=== PATIENT | male | born 1965 | race Caucasian/White ===

== ENCOUNTER → 2018-04-29 | Outpatient (REF) | payer OTHER, MEDICARE ==
[2018-04-29 13:49] LABS: APPEARANCE, URINE CLEAR (CLEAR); BACTERIA, URINE AUTO NEGATIVE (NEGATIVE); BILIRUBIN, URINE AUTO NEGATIVE (NEGATIVE); BLOOD, URINE BLOOD NEGATIVE (NEGATIVE); COLOR, URINE COLORLESS (YELLOW); GLUCOSE, URINE (UA) AUTO NEGATIVE (NEGATIVE); KETONE, URINE AUTO NEGATIVE (NEGATIVE); LEUKOCYTE ESTERASE, URINE AUTO NEGATIVE (NEGATIVE); MUCUS, URINE SMALL (NEGATIVE); NITRITE, URINE AUTO NEGATIVE (NEGATIVE); PROTEIN, URINE AUTO NEGATIVE (NEGATIVE); RBC, URINE AUTO 0 /HPF (0-3); SPECIFIC GRAVITY URINE AUTO 1.002 (1.002-1.035); SQUAMOUS EPITHELIAL CELL UR AU 0 /HPF (0-6); UROBILINOGEN, URINE AUTO 0.2 mg/dL (0.0-2.0); WBC, URINE AUTO 1 /HPF (0-3)
== END ==
LOC: M SMT 13:12
DX: R31.9 Hematuria, unspecified (principal)
CPT/HCPCS: 81001

== ENCOUNTER → 2019-01-29 | Outpatient (REF) ==
[~2019-01-29] MED LIST: ACET250T2 PO; ASPI81TA85 PO; ATOR40TA75 PO; BENZ-52 PO; BENZ1TAB42 PO; DIVA250T7 PO; FERR325T3 PO; FLOM0.4C39 PO; GABA-845 PO; HALO5TA PO; HYDR-3363 PO; INVE234I IM; INVE39IN IM; LISI-672 PO; RANI300C PO; RISP1TAB3 PO; VIST50CA PO
== END ==
LOC: M LAB REF 15:10
PROVIDERS: ATTEND Urology
DX: Z00.00 Encounter for general adult medical examination without abnormal findings (principal)

== ENCOUNTER → 2019-05-31 | Outpatient (REF) | payer MEDICARE, MEDICAID | LOC: M SMT 17:12 | PROVIDERS: ATTEND Urology | DX: C67.9 Malignant neoplasm of bladder, unspecified (principal) ==

== ENCOUNTER 2022-01-04 12:58 | Inpatient (IN) | payer MEDICARE, MEDICAID ==
[~2022-01-04] VITALS: Ht 185.4 cm; Wt 119.0 kg
[~2022-01-04 12:58] MED LIST changes: -ASPI81TA85 PO; +ASPI81TA86 PO; +GABA-283 PO; -GABA-845 PO; -HALO5TA PO; +HALO5TAB33 PO; -LISI-672 PO; +LISI30TA4 PO
[2022-01-04] MEDS ORDERED: LORazepam 2 MG TAB PO STA ×3 (13:21→22:50)
[2022-01-04] MEDS ORDERED: OLANZapine ORAL DISINTEGRATING TAB 5MG PO ONE (13:25)
[2022-01-04 14:29] LABS: AMPHETAMINES LEVEL URINE NEGATIVE (NEGATIVE); BARBITURATES URINE NEGATIVE (NEGATIVE); BENZODIAZEPINES URINE NEGATIVE (NEGATIVE); CANNABINOIDS URINE NEGATIVE (NEGATIVE); COCAINE METABOLITE URINE NEGATIVE (NEGATIVE); METHADONE URINE NEGATIVE (NEGATIVE); OPIATES URINE NEGATIVE (NEGATIVE); PHENCYCLIDINE URINE NEGATIVE (NEGATIVE)
[2022-01-04 15:18] LABS: RSV AMPLIFICATION NEGATIVE (NEGATIVE)
[2022-01-04] MEDS ORDERED: FERR1TAB8 PO (15:47)
[2022-01-04] MEDS ORDERED: GABA-282 PO (15:47)
[2022-01-04] MEDS ORDERED: OXYB5TAB10 PO (15:47)
[2022-01-04] MEDS ORDERED: ASPI81TA26 PO (15:47)
[2022-01-04] MEDS ORDERED: patient note (15:48)
[2022-01-04] MEDS ORDERED: HOME MED LIST COMPLETE! XX SCH (15:50)
[2022-01-04 15:52] LABS: HEMATOCRIT 41.7 % (42.0-52.0); HEMOGLOBIN 13.5 g/dl (13.5-17.5); MEAN CORPUSCULAR HEMOGLOBIN 29.5 pg (27.0-33.0); MEAN CORPUSCULAR HGB CONC 32.4 g/dl (32.0-36.5); PLATELET COUNT, AUTOMATED 220 10^3/uL (150-450); RED BLOOD COUNT 4.58 10^6/uL (4.30-6.10); WHITE BLOOD COUNT 9.7 10^3/uL (4.0-10.0)
[2022-01-04 16:39] LABS: ACETAMINOPHEN LEVEL < 2.0 UG/ML (10.0-30.0); ALT/SGPT 26 U/L (12-78); BILIRUBIN,DIRECT 0.2 MG/DL (0.0-0.2); BILIRUBIN,TOTAL 0.3 MG/DL (0.2-1.0); BLOOD UREA NITROGEN 11 MG/DL (7-18); CALCIUM LEVEL 9.7 MG/DL (8.5-10.1); CARBON DIOXIDE LEVEL 32 MEQ/L (21-32); CHLORIDE LEVEL 102 MEQ/L (98-107); CREATININE FOR GFR 0.72 MG/DL (0.70-1.30); ETHYL ALCOHOL (ETHANOL) 0.003 % (0.000-0.010); GLOMERULAR FILTRATION RATE > 60.0 (>56); GLUCOSE, FASTING 99 MG/DL (70-100); POTASSIUM SERUM 4.4 MEQ/L (3.5-5.1); SALICYLATE LEVEL < 1.7 MG/DL (5.0-30.0); SODIUM LEVEL 137 MEQ/L (136-145); THYROID STIMULATING HORMONE 0.898 uIU/ML (0.358-3.740); TOTAL PROTEIN 7.7 GM/DL (6.4-8.2)
[2022-01-04] MEDS: traZODone 50 MG TAB PO PRN (19:42)
[2022-01-04] MEDS ORDERED: OLANZapine ORAL DISINTEGRATING TAB 5MG PO STA (22:50)
[2022-01-04] MEDS ORDERED: diphenhydrAMINE 50MG CAP PO STA (22:50)
[2022-01-05] MEDS: PALIPERIDONE 6 MG ER TAB (INVEGA) PO SCH (13:41)
[2022-01-05] MEDS ORDERED: PALIPERIDONE PAL 234MG/1.5ML INJ (INVEGA)(FREE PSY INPT ONLY) IM ONE (16:00)
[2022-01-05] MEDS: traZODone 50 MG TAB PO PRN (20:20)
[2022-01-06] MEDS: PALIPERIDONE 6 MG ER TAB (INVEGA) PO SCH (09:00)
[2022-01-06] MEDS: traZODone 50 MG TAB PO PRN (21:34)
[2022-01-07 06:45] VITALS: BP 152/88
[2022-01-07] MEDS: PALIPERIDONE 6 MG ER TAB (INVEGA) PO SCH (08:51)
[2022-01-07] MEDS ORDERED: fluPHENAZine DECAN 25MG/ML 5ML VIAL (J2680) IM SCH (09:00)
[2022-01-07] MEDS ORDERED: FLUP5TAB13 PO (15:48)
[2022-01-07] MEDS ORDERED: FLUP25VL INJ (15:52)
[2022-01-07] MEDS ORDERED: LISI10TA22 PO (16:03)
[2022-01-07] MEDS ORDERED: DIVA500T94 PO (16:03)
[2022-01-07] MEDS ORDERED: VITA-158 PO (16:12)
[2022-01-07] MEDS ORDERED: ARTIDRO OU (16:12)
[2022-01-07] MEDS ORDERED: PROP10TA56 PO (16:12)
[2022-01-07] MEDS ORDERED: IBUP1TAB5 PO (16:12)
[2022-01-07] MEDS ORDERED: CYCL-707 PO (16:12)
[2022-01-07] MEDS ORDERED: FURO20TA2 PO (16:12)
[2022-01-07] MEDS ORDERED: TRAZ-252 PO (16:12)
[2022-01-07] MEDS ORDERED: HOME MED LIST COMPLETE! XX SCH (16:15)
[2022-01-07] MEDS: GABAPENTIN 300 MG CAP PO SCH ×2 (16:56→20:08)
[2022-01-07] MEDS: traZODone 50 MG TAB PO PRN (20:08)
[2022-01-07] MEDS: fluPHENAZine 5MG TABLET PO SCH (20:08)
[2022-01-07] MEDS: PROPRANOLOL 10 MG TAB PO SCH (20:08)
[2022-01-07] MEDS: BENZTROPINE 0.5 MG TAB PO SCH (20:09)
[2022-01-07] MEDS: VALPROIC ACID 250MG CAP PO SCH (20:09)
[2022-01-08] MEDS: BENZTROPINE 0.5 MG TAB PO SCH ×2 (09:53→20:01)
[2022-01-08] MEDS: VALPROIC ACID 250MG CAP PO SCH ×2 (09:54→20:01)
[2022-01-08] MEDS: GABAPENTIN 300 MG CAP PO SCH ×3 (09:54→20:01)
[2022-01-08] MEDS: fluPHENAZine 5MG TABLET PO SCH ×2 (09:55→20:00)
[2022-01-08] MEDS: PROPRANOLOL 10 MG TAB PO SCH ×2 (10:15→20:00)
[2022-01-08] MEDS: NICOTINE 21MG/24HR 1 EA TRANSDERMAL TD PRN (10:34)
[2022-01-08] MEDS: diphenhydrAMINE 50MG CAP PO PRN (18:45)
[2022-01-08] MEDS: LORazepam 2 MG TAB PO PRN (18:45)
[2022-01-08] MEDS: traZODone 50 MG TAB PO PRN (20:00)
[2022-01-08 20:58] VITALS: BP 141/80
[2022-01-09 06:20] VITALS: BP 146/93
[2022-01-09] MEDS: NICOTINE 21MG/24HR 1 EA TRANSDERMAL TD PRN (07:33)
[2022-01-09] MEDS: fluPHENAZine 5MG TABLET PO SCH ×2 (07:33→21:00)
[2022-01-09] MEDS: PROPRANOLOL 10 MG TAB PO SCH ×2 (07:34→21:34)
[2022-01-09] MEDS: VALPROIC ACID 250MG CAP PO SCH ×2 (07:34→21:34)
[2022-01-09] MEDS: BENZTROPINE 0.5 MG TAB PO SCH ×2 (07:34→21:34)
[2022-01-09] MEDS: GABAPENTIN 300 MG CAP PO SCH ×3 (07:34→21:34)
[2022-01-09] MEDS: LORazepam 2 MG TAB PO PRN (10:11)
[2022-01-09] MEDS: diphenhydrAMINE 50MG CAP PO PRN (10:11)
[2022-01-09 18:28] VITALS: BP 153/87
[2022-01-10 00:05] VITALS: BP 180/110
[2022-01-10] MEDS: diphenhydrAMINE 50MG CAP PO PRN ×2 (00:10→16:15)
[2022-01-10] MEDS: LORazepam 2 MG TAB PO PRN ×2 (00:11→16:15)
[2022-01-10 00:38] VITALS: BP 180/110
[2022-01-10] MEDS: traZODone 50 MG TAB PO PRN (01:10)
[2022-01-10 01:30] LABS: CK-MB VALUE MASS 8.3 NG/ML (<3.6); MB/CK RELATIVE INDEX 2.36 (< OR =4)
[2022-01-10 01:55] VITALS: BP 170/108
[2022-01-10 07:38] VITALS: BP 130/90
[2022-01-10] MEDS: fluPHENAZine 5MG TABLET PO SCH ×2 (09:51→19:30)
[2022-01-10] MEDS: FUROSEMIDE 20 MG TAB PO SCH (09:52)
[2022-01-10] MEDS: BENZTROPINE 0.5 MG TAB PO SCH ×2 (09:52→19:31)
[2022-01-10] MEDS: ASPIRIN 81MG ENTERIC TABLET PO SCH (09:52)
[2022-01-10] MEDS: GABAPENTIN 300 MG CAP PO SCH ×3 (09:52→19:30)
[2022-01-10] MEDS: ASCORBIC ACID 500 MG TAB PO SCH (09:52)
[2022-01-10] MEDS: PROPRANOLOL 10 MG TAB PO SCH ×2 (09:52→19:31)
[2022-01-10] MEDS: NICOTINE 21MG/24HR 1 EA TRANSDERMAL TD PRN (12:15)
[2022-01-10] MEDS: VALPROIC ACID 250MG CAP PO SCH ×2 (12:16→19:32)
[2022-01-10 18:32] VITALS: BP 154/96
[2022-01-10] MEDS: TAMSULOSIN 0.4 MG CAP PO SCH (19:31)
[2022-01-10] MEDS: DOCUSATE SODIUM 100MG CAPSULE PO PRN (19:31)
[2022-01-10] MEDS: ACETAMINOPHEN TAB 650MG DOSE (2X325MG) PO PRN (22:56)
[2022-01-11] MEDS: traZODone 50 MG TAB PO PRN (01:08)
[2022-01-11 06:58] VITALS: BP 129/76
[2022-01-11] MEDS ORDERED: TAMSULOSIN 0.4 MG CAP PO SCH (09:00)
[2022-01-11] MEDS: ASCORBIC ACID 500 MG TAB PO SCH (09:07)
[2022-01-11] MEDS: BENZTROPINE 0.5 MG TAB PO SCH ×2 (09:07→21:31)
[2022-01-11] MEDS: fluPHENAZine 5MG TABLET PO SCH ×2 (09:09→21:00)
[2022-01-11] MEDS: GABAPENTIN 300 MG CAP PO SCH ×3 (09:09→21:31)
[2022-01-11] MEDS: ASPIRIN 81MG ENTERIC TABLET PO SCH (09:09)
[2022-01-11] MEDS: FUROSEMIDE 20 MG TAB PO SCH (09:09)
[2022-01-11] MEDS: VALPROIC ACID 250MG CAP PO SCH ×2 (09:10→21:31)
[2022-01-11] MEDS: PROPRANOLOL 10 MG TAB PO SCH ×2 (09:10→21:32)
[2022-01-11] MEDS: NICOTINE POLACRILEX 2 MG GUM PO PRN ×3 (10:43→21:50)
[2022-01-11] MEDS ORDERED: PALIPERIDONE PAL 234MG/1.5ML INJ (INVEGA)(FREE PSY INPT ONLY) IM ONE (17:00)
[2022-01-11 18:34] VITALS: BP 158/100
[2022-01-11] MEDS: TAMSULOSIN 0.4 MG CAP PO SCH (21:32)
[2022-01-12] MEDS: traZODone 50 MG TAB PO PRN (00:08)
[2022-01-12] MEDS: LORazepam 2 MG TAB PO PRN (02:19)
[2022-01-12] MEDS: diphenhydrAMINE 50MG CAP PO PRN (02:20)
[2022-01-12] MEDS: fluPHENAZine 5MG TABLET PO SCH ×3 (09:00→21:00)
[2022-01-12] MEDS: ASPIRIN 81MG ENTERIC TABLET PO SCH (09:39)
[2022-01-12] MEDS: ASCORBIC ACID 500 MG TAB PO SCH (09:39)
[2022-01-12] MEDS: FUROSEMIDE 20 MG TAB PO SCH (09:39)
[2022-01-12] MEDS: BENZTROPINE 0.5 MG TAB PO SCH ×2 (09:40→21:28)
[2022-01-12] MEDS: GABAPENTIN 300 MG CAP PO SCH ×3 (09:40→21:28)
[2022-01-12] MEDS: VALPROIC ACID 250MG CAP PO SCH ×2 (09:40→21:28)
[2022-01-12] MEDS: PROPRANOLOL 10 MG TAB PO SCH ×2 (09:40→21:28)
[2022-01-12] MEDS: NICOTINE POLACRILEX 2 MG GUM PO PRN ×3 (12:32→21:39)
[2022-01-12] MEDS: DOCUSATE SODIUM 100MG CAPSULE PO PRN (12:32)
[2022-01-12 18:00] VITALS: BP 150/84
[2022-01-12] MEDS: TAMSULOSIN 0.4 MG CAP PO SCH (21:28)
[2022-01-13] MEDS: NICOTINE POLACRILEX 2 MG GUM PO PRN ×4 (02:27→23:53)
[2022-01-13] MEDS: fluPHENAZine 5MG TABLET PO SCH ×2 (09:00→19:44)
[2022-01-13] MEDS: ASCORBIC ACID 500 MG TAB PO SCH (09:12)
[2022-01-13] MEDS: GABAPENTIN 300 MG CAP PO SCH ×3 (09:12→19:42)
[2022-01-13] MEDS: ASPIRIN 81MG ENTERIC TABLET PO SCH (09:12)
[2022-01-13] MEDS: VALPROIC ACID 250MG CAP PO SCH ×2 (09:12→19:42)
[2022-01-13] MEDS: BENZTROPINE 0.5 MG TAB PO SCH ×3 (09:13→19:41)
[2022-01-13] MEDS: FUROSEMIDE 20 MG TAB PO SCH ×2 (09:13→12:08)
[2022-01-13] MEDS: PROPRANOLOL 10 MG TAB PO SCH ×2 (09:17→19:44)
[2022-01-13] MEDS: TAMSULOSIN 0.4 MG CAP PO SCH (19:41)
[2022-01-13] MEDS: DOCUSATE SODIUM 100MG CAPSULE PO PRN (19:46)
[2022-01-13] MEDS: diphenhydrAMINE 50MG CAP PO PRN (23:19)
[2022-01-13] MEDS: LORazepam 2 MG TAB PO PRN (23:19)
[2022-01-14] MEDS: ASPIRIN 81MG ENTERIC TABLET PO SCH (08:25)
[2022-01-14] MEDS: GABAPENTIN 300 MG CAP PO SCH ×3 (08:26→20:30)
[2022-01-14] MEDS: FUROSEMIDE 20 MG TAB PO SCH (08:26)
[2022-01-14] MEDS: ASCORBIC ACID 500 MG TAB PO SCH (08:26)
[2022-01-14] MEDS: BENZTROPINE 0.5 MG TAB PO SCH ×2 (08:26→20:29)
[2022-01-14] MEDS: PROPRANOLOL 10 MG TAB PO SCH ×2 (08:26→20:36)
[2022-01-14] MEDS: fluPHENAZine 5MG TABLET PO SCH ×2 (08:38→21:00)
[2022-01-14] MEDS: VALPROIC ACID 250MG CAP PO SCH ×2 (08:38→21:00)
[2022-01-14] MEDS: NICOTINE POLACRILEX 2 MG GUM PO PRN ×3 (09:34→18:05)
[2022-01-14 18:00] VITALS: BP 168/84
[2022-01-14] MEDS: TAMSULOSIN 0.4 MG CAP PO SCH (20:30)
[2022-01-14] MEDS: DOCUSATE SODIUM 100MG CAPSULE PO PRN (20:36)
[2022-01-15] MEDS: LORazepam 2 MG TAB PO PRN ×2 (00:01→21:16)
[2022-01-15] MEDS: diphenhydrAMINE 50MG CAP PO PRN ×2 (00:02→21:16)
[2022-01-15] MEDS: NICOTINE POLACRILEX 2 MG GUM PO PRN ×4 (00:05→19:01)
[2022-01-15] MEDS: traZODone 50 MG TAB PO PRN (01:17)
[2022-01-15] MEDS: GABAPENTIN 300 MG CAP PO SCH ×3 (09:00→20:24)
[2022-01-15] MEDS: BENZTROPINE 0.5 MG TAB PO SCH ×2 (09:00→20:24)
[2022-01-15] MEDS: fluPHENAZine 5MG TABLET PO SCH ×2 (09:00→20:28)
[2022-01-15] MEDS: VALPROIC ACID 250MG CAP PO SCH ×2 (09:00→20:28)
[2022-01-15] MEDS: PROPRANOLOL 10 MG TAB PO SCH ×2 (09:30→20:28)
[2022-01-15] MEDS: ASCORBIC ACID 500 MG TAB PO SCH (09:30)
[2022-01-15] MEDS: FUROSEMIDE 20 MG TAB PO SCH (09:30)
[2022-01-15] MEDS: ASPIRIN 81MG ENTERIC TABLET PO SCH (09:30)
[2022-01-15] MEDS: DOCUSATE SODIUM 100MG CAPSULE PO PRN ×2 (11:24→20:26)
[2022-01-15] MEDS: TAMSULOSIN 0.4 MG CAP PO SCH (20:24)
[2022-01-16] MEDS: traZODone 50 MG TAB PO PRN (00:30)
[2022-01-16 06:28] VITALS: BP 140/98
[2022-01-16] MEDS: ASCORBIC ACID 500 MG TAB PO SCH (09:00)
[2022-01-16] MEDS: fluPHENAZine 5MG TABLET PO SCH ×2 (09:00→21:00)
[2022-01-16] MEDS: FUROSEMIDE 20 MG TAB PO SCH (09:00)
[2022-01-16] MEDS: VALPROIC ACID 250MG CAP PO SCH ×2 (09:00→21:00)
[2022-01-16] MEDS: GABAPENTIN 300 MG CAP PO SCH ×3 (09:00→23:50)
[2022-01-16] MEDS: ASPIRIN 81MG ENTERIC TABLET PO SCH (09:00)
[2022-01-16] MEDS: BENZTROPINE 0.5 MG TAB PO SCH ×2 (09:00→21:00)
[2022-01-16] MEDS: PROPRANOLOL 10 MG TAB PO SCH ×2 (09:00→23:52)
[2022-01-16] MEDS: TAMSULOSIN 0.4 MG CAP PO SCH (21:00)
[2022-01-17] MEDS: diphenhydrAMINE 50MG CAP PO PRN ×2 (03:42→11:42)
[2022-01-17] MEDS: LORazepam 2 MG TAB PO PRN ×2 (03:43→11:42)
[2022-01-17 06:47] VITALS: BP 156/88
[2022-01-17] MEDS: ASCORBIC ACID 500 MG TAB PO SCH (09:00)
[2022-01-17] MEDS: fluPHENAZine 5MG TABLET PO SCH ×2 (09:00→21:00)
[2022-01-17] MEDS: GABAPENTIN 300 MG CAP PO SCH ×3 (09:00→21:05)
[2022-01-17] MEDS: VALPROIC ACID 250MG CAP PO SCH ×2 (09:00→21:00)
[2022-01-17] MEDS: ASPIRIN 81MG ENTERIC TABLET PO SCH (09:00)
[2022-01-17] MEDS: PROPRANOLOL 10 MG TAB PO SCH ×2 (09:00→21:05)
[2022-01-17] MEDS: FUROSEMIDE 20 MG TAB PO SCH (09:00)
[2022-01-17] MEDS: BENZTROPINE 0.5 MG TAB PO SCH ×2 (09:00→21:05)
[2022-01-17 16:37] VITALS: BP 132/68
[2022-01-17] MEDS: TAMSULOSIN 0.4 MG CAP PO SCH (21:05)
[2022-01-17] MEDS: DOCUSATE SODIUM 100MG CAPSULE PO PRN (21:07)
[2022-01-18] MEDS: VALPROIC ACID 250MG CAP PO SCH ×2 (09:00→21:00)
[2022-01-18] MEDS: fluPHENAZine 5MG TABLET PO SCH ×2 (09:00→21:00)
[2022-01-18] MEDS: PROPRANOLOL 10 MG TAB PO SCH ×2 (09:00→21:27)
[2022-01-18] MEDS: FUROSEMIDE 20 MG TAB PO SCH (09:00)
[2022-01-18] MEDS: BENZTROPINE 0.5 MG TAB PO SCH ×2 (10:50→21:27)
[2022-01-18] MEDS: GABAPENTIN 300 MG CAP PO SCH ×3 (10:50→21:27)
[2022-01-18] MEDS: ASCORBIC ACID 500 MG TAB PO SCH (10:50)
[2022-01-18] MEDS: ASPIRIN 81MG ENTERIC TABLET PO SCH (10:51)
[2022-01-18] MEDS: LORazepam 2 MG TAB PO PRN ×2 (12:29→21:32)
[2022-01-18] MEDS: diphenhydrAMINE 50MG CAP PO PRN ×2 (12:29→21:31)
[2022-01-18] MEDS: ACETAMINOPHEN TAB 650MG DOSE (2X325MG) PO PRN (16:10)
[2022-01-18 17:22] VITALS: BP 141/94
[2022-01-18] MEDS: TAMSULOSIN 0.4 MG CAP PO SCH (21:27)
[2022-01-18] MEDS: DOCUSATE SODIUM 100MG CAPSULE PO PRN (21:31)
[2022-01-19] MEDS: ACETAMINOPHEN TAB 650MG DOSE (2X325MG) PO PRN ×2 (03:24→13:05)
[2022-01-19 06:54] VITALS: BP 139/90
[2022-01-19] MEDS: FUROSEMIDE 20 MG TAB PO SCH (08:44)
[2022-01-19] MEDS: ASCORBIC ACID 500 MG TAB PO SCH (08:44)
[2022-01-19] MEDS: BENZTROPINE 0.5 MG TAB PO SCH ×2 (08:44→21:55)
[2022-01-19] MEDS: GABAPENTIN 300 MG CAP PO SCH ×3 (08:45→21:55)
[2022-01-19] MEDS: ASPIRIN 81MG ENTERIC TABLET PO SCH (08:45)
[2022-01-19] MEDS: MULTIVITAMINS/MINERALS THERAP 1 TAB PO SCH (08:45)
[2022-01-19] MEDS: PROPRANOLOL 10 MG TAB PO SCH ×2 (08:45→22:00)
[2022-01-19] MEDS: fluPHENAZine 5MG TABLET PO SCH ×2 (08:49→21:00)
[2022-01-19] MEDS: VALPROIC ACID 250MG CAP PO SCH ×2 (08:50→21:00)
[2022-01-19] MEDS: diphenhydrAMINE 50MG CAP PO PRN (12:02)
[2022-01-19] MEDS: LORazepam 2 MG TAB PO PRN (12:02)
[2022-01-19] MEDS: NICOTINE POLACRILEX 2 MG GUM PO PRN (15:41)
[2022-01-19 16:55] VITALS: BP 154/94
[2022-01-19] MEDS: TAMSULOSIN 0.4 MG CAP PO SCH (21:56)
[2022-01-19] MEDS: DOCUSATE SODIUM 100MG CAPSULE PO PRN (22:00)
[2022-01-20] MEDS: VALPROIC ACID 250MG CAP PO SCH ×3 (00:06→21:51)
[2022-01-20] MEDS: LORazepam 2 MG TAB PO PRN ×3 (01:10→23:11)
[2022-01-20] MEDS: diphenhydrAMINE 50MG CAP PO PRN ×3 (01:10→23:09)
[2022-01-20] MEDS: traZODone 50 MG TAB PO PRN (02:01)
[2022-01-20] MEDS: fluPHENAZine 5MG TABLET PO SCH ×2 (09:00→21:00)
[2022-01-20] MEDS: MULTIVITAMINS/MINERALS THERAP 1 TAB PO SCH (09:08)
[2022-01-20 09:13] VITALS: BP 158/98
[2022-01-20] MEDS: ASCORBIC ACID 500 MG TAB PO SCH (09:13)
[2022-01-20] MEDS: GABAPENTIN 300 MG CAP PO SCH ×3 (09:13→21:50)
[2022-01-20] MEDS: ASPIRIN 81MG ENTERIC TABLET PO SCH (09:13)
[2022-01-20] MEDS: PROPRANOLOL 10 MG TAB PO SCH ×2 (09:13→21:00)
[2022-01-20] MEDS: BENZTROPINE 0.5 MG TAB PO SCH ×2 (09:14→21:51)
[2022-01-20] MEDS: FUROSEMIDE 20 MG TAB PO SCH (09:14)
[2022-01-20 16:58] VITALS: BP 140/96
[2022-01-20] MEDS: TAMSULOSIN 0.4 MG CAP PO SCH (21:00)
[2022-01-21] MEDS: traZODone 50 MG TAB PO PRN ×2 (00:36→23:04)
[2022-01-21] MEDS: NICOTINE POLACRILEX 2 MG GUM PO PRN ×4 (02:09→20:54)
[2022-01-21] MEDS: ACETAMINOPHEN TAB 650MG DOSE (2X325MG) PO PRN ×2 (02:10→21:40)
[2022-01-21] MEDS: BENZTROPINE 0.5 MG TAB PO SCH ×2 (08:26→20:13)
[2022-01-21] MEDS: GABAPENTIN 300 MG CAP PO SCH ×5 (08:26→20:15)
[2022-01-21] MEDS: MULTIVITAMINS/MINERALS THERAP 1 TAB PO SCH (08:26)
[2022-01-21] MEDS: ASPIRIN 81MG ENTERIC TABLET PO SCH (08:26)
[2022-01-21] MEDS: ASCORBIC ACID 500 MG TAB PO SCH (08:26)
[2022-01-21] MEDS: VALPROIC ACID 250MG CAP PO SCH ×3 (08:29→20:17)
[2022-01-21] MEDS: PROPRANOLOL 10 MG TAB PO SCH ×2 (08:30→20:10)
[2022-01-21] MEDS: FUROSEMIDE 20 MG TAB PO SCH (08:30)
[2022-01-21] MEDS: fluPHENAZine 5MG TABLET PO SCH ×2 (08:31→20:11)
[2022-01-21] MEDS: diphenhydrAMINE 50MG CAP PO PRN ×2 (11:45→21:36)
[2022-01-21] MEDS: LORazepam 2 MG TAB PO PRN ×2 (11:49→21:36)
[2022-01-21 18:16] VITALS: BP 153/86
[2022-01-21] MEDS: TAMSULOSIN 0.4 MG CAP PO SCH (20:11)
[2022-01-22] MEDS: NICOTINE POLACRILEX 2 MG GUM PO PRN ×3 (07:28→23:04)
[2022-01-22] MEDS: ASPIRIN 81MG ENTERIC TABLET PO SCH (08:41)
[2022-01-22] MEDS: GABAPENTIN 300 MG CAP PO SCH ×3 (08:41→20:19)
[2022-01-22] MEDS: MULTIVITAMINS/MINERALS THERAP 1 TAB PO SCH (08:41)
[2022-01-22] MEDS: ASCORBIC ACID 500 MG TAB PO SCH (08:41)
[2022-01-22] MEDS: BENZTROPINE 0.5 MG TAB PO SCH ×2 (08:41→20:19)
[2022-01-22] MEDS: VALPROIC ACID 250MG CAP PO SCH ×2 (08:42→20:19)
[2022-01-22] MEDS: PROPRANOLOL 10 MG TAB PO SCH ×2 (08:44→20:21)
[2022-01-22] MEDS: FUROSEMIDE 20 MG TAB PO SCH (08:45)
[2022-01-22] MEDS: fluPHENAZine 5MG TABLET PO SCH ×2 (08:45→20:21)
[2022-01-22] MEDS: MAALOX 30 ML SUSP *UDC PO PRN (09:22)
[2022-01-22] MEDS: diphenhydrAMINE 50MG CAP PO PRN ×2 (11:01→20:19)
[2022-01-22] MEDS: LORazepam 2 MG TAB PO PRN ×2 (11:01→20:21)
[2022-01-22] MEDS: TAMSULOSIN 0.4 MG CAP PO SCH (20:21)
[2022-01-22] MEDS: traZODone 50 MG TAB PO PRN (23:02)
[2022-01-23] MEDS: NICOTINE POLACRILEX 2 MG GUM PO PRN ×2 (07:26→14:24)
[2022-01-23] MEDS: PROPRANOLOL 10 MG TAB PO SCH ×2 (08:21→21:00)
[2022-01-23] MEDS: FUROSEMIDE 20 MG TAB PO SCH (08:22)
[2022-01-23] MEDS: fluPHENAZine 5MG TABLET PO SCH ×2 (08:22→21:00)
[2022-01-23] MEDS: GABAPENTIN 300 MG CAP PO SCH ×3 (08:24→21:29)
[2022-01-23] MEDS: VALPROIC ACID 250MG CAP PO SCH ×2 (08:25→21:29)
[2022-01-23] MEDS: MULTIVITAMINS/MINERALS THERAP 1 TAB PO SCH (08:25)
[2022-01-23] MEDS: ASCORBIC ACID 500 MG TAB PO SCH (08:25)
[2022-01-23] MEDS: BENZTROPINE 0.5 MG TAB PO SCH ×2 (08:25→21:29)
[2022-01-23] MEDS: ASPIRIN 81MG ENTERIC TABLET PO SCH (08:25)
[2022-01-23] MEDS: LORazepam 2 MG TAB PO PRN ×2 (09:02→21:34)
[2022-01-23] MEDS: diphenhydrAMINE 50MG CAP PO PRN ×2 (09:02→21:33)
[2022-01-23] MEDS: NICOTINE 21MG/24HR 1 EA TRANSDERMAL TD SCH (17:30)
[2022-01-23] MEDS: TAMSULOSIN 0.4 MG CAP PO SCH (21:00)
[2022-01-23] MEDS: traZODone 50 MG TAB PO PRN (21:58)
[2022-01-23] MEDS: MOM 30ML SUSPENSION UDC PO PRN (22:40)
[2022-01-24 07:00] VITALS: BP 142/75
[2022-01-24] MEDS: BENZTROPINE 0.5 MG TAB PO SCH ×2 (09:55→21:44)
[2022-01-24] MEDS: ASCORBIC ACID 500 MG TAB PO SCH (09:55)
[2022-01-24] MEDS: ASPIRIN 81MG ENTERIC TABLET PO SCH (09:56)
[2022-01-24] MEDS: GABAPENTIN 300 MG CAP PO SCH ×3 (09:56→21:00)
[2022-01-24] MEDS: MULTIVITAMINS/MINERALS THERAP 1 TAB PO SCH (09:56)
[2022-01-24] MEDS: NICOTINE 21MG/24HR 1 EA TRANSDERMAL TD SCH (09:57)
[2022-01-24] MEDS: VALPROIC ACID 250MG CAP PO SCH ×2 (09:57→21:00)
[2022-01-24] MEDS: FUROSEMIDE 20 MG TAB PO SCH (10:15)
[2022-01-24] MEDS: PROPRANOLOL 10 MG TAB PO SCH ×3 (10:15→21:00)
[2022-01-24] MEDS: fluPHENAZine 5MG TABLET PO SCH ×2 (10:15→21:00)
[2022-01-24] MEDS: LORazepam 2 MG TAB PO PRN (13:49)
[2022-01-24] MEDS: diphenhydrAMINE 50MG CAP PO PRN (13:49)
[2022-01-24 18:00] VITALS: BP 195/110
[2022-01-24] MEDS: IBUPROFEN 600MG TAB PO PRN (19:07)
[2022-01-24] MEDS: TAMSULOSIN 0.4 MG CAP PO SCH (21:00)
[2022-01-24] MEDS: MAALOX 30 ML SUSP *UDC PO PRN (21:46)
[2022-01-24] MEDS: MOM 30ML SUSPENSION UDC PO PRN (23:29)
[2022-01-25] MEDS: ASCORBIC ACID 500 MG TAB PO SCH (10:35)
[2022-01-25] MEDS: GABAPENTIN 300 MG CAP PO SCH ×3 (10:35→21:00)
[2022-01-25] MEDS: BENZTROPINE 0.5 MG TAB PO SCH ×2 (10:35→21:00)
[2022-01-25] MEDS: MULTIVITAMINS/MINERALS THERAP 1 TAB PO SCH (10:35)
[2022-01-25] MEDS: NICOTINE 21MG/24HR 1 EA TRANSDERMAL TD SCH (10:35)
[2022-01-25] MEDS: ASPIRIN 81MG ENTERIC TABLET PO SCH (10:35)
[2022-01-25] MEDS: PROPRANOLOL 10 MG TAB PO SCH ×2 (10:38→21:00)
[2022-01-25] MEDS: fluPHENAZine 5MG TABLET PO SCH ×2 (10:38→21:00)
[2022-01-25] MEDS: VALPROIC ACID 250MG CAP PO SCH ×2 (10:38→21:00)
[2022-01-25] MEDS: FUROSEMIDE 20 MG TAB PO SCH (10:38)
[2022-01-25] MEDS: IBUPROFEN 600MG TAB PO PRN (14:15)
[2022-01-25 14:31] VITALS: BP 214/110
[2022-01-25 18:36] VITALS: BP 206/100
[2022-01-25] MEDS: TAMSULOSIN 0.4 MG CAP PO SCH (21:00)
[2022-01-26 06:37] VITALS: BP 119/58
[2022-01-26] MEDS: GABAPENTIN 300 MG CAP PO SCH ×3 (09:00→21:00)
[2022-01-26] MEDS: BENZTROPINE 0.5 MG TAB PO SCH ×2 (09:00→21:00)
[2022-01-26] MEDS: ASPIRIN 81MG ENTERIC TABLET PO SCH (09:00)
[2022-01-26] MEDS: VALPROIC ACID 250MG CAP PO SCH ×2 (09:00→21:00)
[2022-01-26] MEDS: PROPRANOLOL 10 MG TAB PO SCH ×2 (09:00→21:00)
[2022-01-26] MEDS: FUROSEMIDE 20 MG TAB PO SCH (09:00)
[2022-01-26] MEDS: NICOTINE 21MG/24HR 1 EA TRANSDERMAL TD SCH (10:01)
[2022-01-26] MEDS: ASCORBIC ACID 500 MG TAB PO SCH (10:01)
[2022-01-26] MEDS: MULTIVITAMINS/MINERALS THERAP 1 TAB PO SCH (10:01)
[2022-01-26] MEDS: fluPHENAZine 5MG TABLET PO SCH ×2 (10:01→21:00)
[2022-01-26] MEDS: TAMSULOSIN 0.4 MG CAP PO SCH (21:00)
[2022-01-27] MEDS: PROPRANOLOL 10 MG TAB PO SCH ×2 (09:00→21:00)
[2022-01-27] MEDS: ASCORBIC ACID 500 MG TAB PO SCH (09:00)
[2022-01-27] MEDS: ASPIRIN 81MG ENTERIC TABLET PO SCH (09:00)
[2022-01-27] MEDS: MULTIVITAMINS/MINERALS THERAP 1 TAB PO SCH (09:00)
[2022-01-27] MEDS: NICOTINE 21MG/24HR 1 EA TRANSDERMAL TD SCH (09:00)
[2022-01-27] MEDS: VALPROIC ACID 250MG CAP PO SCH ×2 (09:00→21:00)
[2022-01-27] MEDS: FUROSEMIDE 20 MG TAB PO SCH (09:00)
[2022-01-27] MEDS: fluPHENAZine 5MG TABLET PO SCH ×2 (09:00→21:00)
[2022-01-27] MEDS: GABAPENTIN 300 MG CAP PO SCH ×3 (09:00→21:00)
[2022-01-27] MEDS: BENZTROPINE 0.5 MG TAB PO SCH ×2 (09:00→21:00)
[2022-01-27] MEDS: TAMSULOSIN 0.4 MG CAP PO SCH (21:00)
[2022-01-28 04:45] VITALS: BP 160/118
[2022-01-28] MEDS: PROPRANOLOL 10 MG TAB PO SCH ×2 (05:12→19:58)
[2022-01-28 08:36] VITALS: BP 148/99
[2022-01-28] MEDS: VALPROIC ACID 250MG CAP PO SCH ×3 (09:00→19:57)
[2022-01-28] MEDS: fluPHENAZine 5MG TABLET PO SCH ×3 (09:00→19:58)
[2022-01-28] MEDS: GABAPENTIN 300 MG CAP PO SCH ×3 (09:06→19:58)
[2022-01-28] MEDS: BENZTROPINE 0.5 MG TAB PO SCH ×2 (09:06→19:57)
[2022-01-28] MEDS: ASCORBIC ACID 500 MG TAB PO SCH (09:06)
[2022-01-28] MEDS: MULTIVITAMINS/MINERALS THERAP 1 TAB PO SCH (09:06)
[2022-01-28] MEDS: FUROSEMIDE 20 MG TAB PO SCH (09:06)
[2022-01-28] MEDS: NICOTINE 21MG/24HR 1 EA TRANSDERMAL TD SCH (09:07)
[2022-01-28] MEDS: ASPIRIN 81MG ENTERIC TABLET PO SCH (09:07)
[2022-01-28 16:20] VITALS: BP 166/82
[2022-01-28] MEDS: TAMSULOSIN 0.4 MG CAP PO SCH (19:58)
[2022-01-29] MEDS: MOM 30ML SUSPENSION UDC PO PRN ×2 (00:03→21:50)
[2022-01-29] MEDS: diphenhydrAMINE 50MG CAP PO PRN (00:47)
[2022-01-29] MEDS: LORazepam 2 MG TAB PO PRN (00:48)
[2022-01-29] MEDS: VALPROIC ACID 250MG CAP PO SCH ×2 (09:21→20:12)
[2022-01-29] MEDS: NICOTINE 21MG/24HR 1 EA TRANSDERMAL TD SCH (09:21)
[2022-01-29] MEDS: BENZTROPINE 0.5 MG TAB PO SCH ×2 (09:21→20:12)
[2022-01-29] MEDS: fluPHENAZine 5MG TABLET PO SCH ×2 (09:22→20:12)
[2022-01-29] MEDS: FUROSEMIDE 20 MG TAB PO SCH (09:22)
[2022-01-29] MEDS: GABAPENTIN 300 MG CAP PO SCH ×3 (09:22→20:12)
[2022-01-29] MEDS: ASPIRIN 81MG ENTERIC TABLET PO SCH (09:22)
[2022-01-29] MEDS: MULTIVITAMINS/MINERALS THERAP 1 TAB PO SCH (09:22)
[2022-01-29] MEDS: ASCORBIC ACID 500 MG TAB PO SCH (09:22)
[2022-01-29] MEDS: PROPRANOLOL 10 MG TAB PO SCH ×2 (09:26→20:12)
[2022-01-29] MEDS: MAALOX 30 ML SUSP *UDC PO PRN (11:21)
[2022-01-29] MEDS: IBUPROFEN 600MG TAB PO PRN ×2 (13:21→21:50)
[2022-01-29 16:51] VITALS: BP 142/80
[2022-01-29] MEDS: TAMSULOSIN 0.4 MG CAP PO SCH (20:12)
[2022-01-30] MEDS: IBUPROFEN 600MG TAB PO PRN ×2 (06:41→16:04)
[2022-01-30] MEDS: FUROSEMIDE 20 MG TAB PO SCH (08:52)
[2022-01-30] MEDS: MULTIVITAMINS/MINERALS THERAP 1 TAB PO SCH (08:52)
[2022-01-30] MEDS: fluPHENAZine 5MG TABLET PO SCH ×2 (08:52→20:41)
[2022-01-30] MEDS: BENZTROPINE 0.5 MG TAB PO SCH ×2 (08:52→20:41)
[2022-01-30] MEDS: ASPIRIN 81MG ENTERIC TABLET PO SCH (08:52)
[2022-01-30] MEDS: VALPROIC ACID 250MG CAP PO SCH ×2 (08:52→20:41)
[2022-01-30] MEDS: PROPRANOLOL 10 MG TAB PO SCH ×2 (08:55→20:52)
[2022-01-30] MEDS: NICOTINE 21MG/24HR 1 EA TRANSDERMAL TD SCH (08:55)
[2022-01-30] MEDS: ASCORBIC ACID 500 MG TAB PO SCH (08:55)
[2022-01-30] MEDS: GABAPENTIN 300 MG CAP PO SCH ×3 (08:55→20:41)
[2022-01-30] MEDS: LORazepam 2 MG TAB PO PRN (16:29)
[2022-01-30] MEDS: diphenhydrAMINE 50MG CAP PO PRN (16:29)
[2022-01-30 16:46] VITALS: BP 150/82
[2022-01-30] MEDS: TAMSULOSIN 0.4 MG CAP PO SCH (20:41)
[2022-01-30] MEDS: MOM 30ML SUSPENSION UDC PO PRN (21:35)
[2022-01-31] MEDS: NICOTINE 21MG/24HR 1 EA TRANSDERMAL TD SCH (08:25)
[2022-01-31] MEDS: VALPROIC ACID 250MG CAP PO SCH ×2 (08:26→20:28)
[2022-01-31] MEDS: PROPRANOLOL 10 MG TAB PO SCH ×2 (08:26→20:28)
[2022-01-31] MEDS: ASCORBIC ACID 500 MG TAB PO SCH (08:26)
[2022-01-31] MEDS: BENZTROPINE 0.5 MG TAB PO SCH ×2 (08:26→20:28)
[2022-01-31] MEDS: ASPIRIN 81MG ENTERIC TABLET PO SCH (08:26)
[2022-01-31] MEDS: GABAPENTIN 300 MG CAP PO SCH ×4 (08:27→20:28)
[2022-01-31] MEDS: FUROSEMIDE 20 MG TAB PO SCH (08:27)
[2022-01-31] MEDS: MULTIVITAMINS/MINERALS THERAP 1 TAB PO SCH (08:27)
[2022-01-31] MEDS: fluPHENAZine 5MG TABLET PO SCH ×2 (08:27→20:29)
[2022-01-31] MEDS: LOPERAMIDE 2 MG CAPLET PO PRN (09:58)
[2022-01-31] MEDS: IBUPROFEN 600MG TAB PO PRN ×2 (11:15→21:55)
[2022-01-31] MEDS: diphenhydrAMINE 50MG CAP PO PRN (11:48)
[2022-01-31] MEDS: LORazepam 2 MG TAB PO PRN (11:50)
[2022-01-31] MEDS: MAALOX 30 ML SUSP *UDC PO PRN (17:21)
[2022-01-31] MEDS: traZODone 50 MG TAB PO PRN (20:25)
[2022-01-31] MEDS: TAMSULOSIN 0.4 MG CAP PO SCH (20:29)
[2022-02-01] MEDS: diphenhydrAMINE 50MG CAP PO PRN ×2 (02:05→15:22)
[2022-02-01] MEDS: LORazepam 2 MG TAB PO PRN ×2 (02:05→15:21)
[2022-02-01] MEDS: MAALOX 30 ML SUSP *UDC PO PRN (04:44)
[2022-02-01] MEDS: BENZTROPINE 0.5 MG TAB PO SCH ×2 (08:46→22:01)
[2022-02-01] MEDS: VALPROIC ACID 250MG CAP PO SCH ×2 (08:46→21:58)
[2022-02-01] MEDS: FUROSEMIDE 20 MG TAB PO SCH (08:46)
[2022-02-01] MEDS: MULTIVITAMINS/MINERALS THERAP 1 TAB PO SCH (08:46)
[2022-02-01] MEDS: ASCORBIC ACID 500 MG TAB PO SCH (08:46)
[2022-02-01] MEDS: PROPRANOLOL 10 MG TAB PO SCH ×2 (08:47→22:00)
[2022-02-01] MEDS: fluPHENAZine 5MG TABLET PO SCH ×2 (08:49→22:00)
[2022-02-01] MEDS: GABAPENTIN 300 MG CAP PO SCH ×3 (08:49→22:00)
[2022-02-01] MEDS: ASPIRIN 81MG ENTERIC TABLET PO SCH (08:49)
[2022-02-01] MEDS: NICOTINE 21MG/24HR 1 EA TRANSDERMAL TD SCH (08:50)
[2022-02-01 08:58] VITALS: BP 140/76
[2022-02-01] MEDS: IBUPROFEN 600MG TAB PO PRN (13:30)
[2022-02-01 16:10] VITALS: BP 140/94
[2022-02-01] MEDS: TAMSULOSIN 0.4 MG CAP PO SCH (22:01)
[2022-02-02] MEDS: traZODone 50 MG TAB PO PRN ×2 (00:28→20:32)
[2022-02-02] MEDS: MOM 30ML SUSPENSION UDC PO PRN (01:08)
[2022-02-02] MEDS: NICOTINE 21MG/24HR 1 EA TRANSDERMAL TD SCH (08:57)
[2022-02-02] MEDS: BENZTROPINE 0.5 MG TAB PO SCH ×2 (08:58→20:31)
[2022-02-02] MEDS: fluPHENAZine 5MG TABLET PO SCH ×2 (08:58→20:32)
[2022-02-02] MEDS: MULTIVITAMINS/MINERALS THERAP 1 TAB PO SCH (08:58)
[2022-02-02] MEDS: ASCORBIC ACID 500 MG TAB PO SCH (08:58)
[2022-02-02] MEDS: FUROSEMIDE 20 MG TAB PO SCH (08:59)
[2022-02-02] MEDS: GABAPENTIN 300 MG CAP PO SCH ×3 (08:59→20:31)
[2022-02-02] MEDS: ASPIRIN 81MG ENTERIC TABLET PO SCH (08:59)
[2022-02-02] MEDS: VALPROIC ACID 250MG CAP PO SCH ×2 (09:00→20:32)
[2022-02-02] MEDS: PROPRANOLOL 10 MG TAB PO SCH ×2 (09:01→20:32)
[2022-02-02] MEDS: diphenhydrAMINE 50MG CAP PO PRN (15:48)
[2022-02-02] MEDS: IBUPROFEN 600MG TAB PO PRN (15:50)
[2022-02-02 16:41] VITALS: BP 142/92
[2022-02-02] MEDS: LORazepam 2 MG TAB PO PRN (17:29)
[2022-02-02] MEDS: TAMSULOSIN 0.4 MG CAP PO SCH (20:31)
[2022-02-03] MEDS: MULTIVITAMINS/MINERALS THERAP 1 TAB PO SCH (09:45)
[2022-02-03] MEDS: NICOTINE 21MG/24HR 1 EA TRANSDERMAL TD SCH (09:45)
[2022-02-03] MEDS: GABAPENTIN 300 MG CAP PO SCH ×3 (09:45→19:48)
[2022-02-03] MEDS: FUROSEMIDE 20 MG TAB PO SCH (09:45)
[2022-02-03] MEDS: ASPIRIN 81MG ENTERIC TABLET PO SCH (09:45)
[2022-02-03] MEDS: fluPHENAZine 5MG TABLET PO SCH ×2 (09:45→19:48)
[2022-02-03] MEDS: VALPROIC ACID 250MG CAP PO SCH ×2 (09:46→19:49)
[2022-02-03] MEDS: ASCORBIC ACID 500 MG TAB PO SCH (09:46)
[2022-02-03] MEDS: BENZTROPINE 0.5 MG TAB PO SCH ×2 (09:46→19:49)
[2022-02-03] MEDS: PROPRANOLOL 10 MG TAB PO SCH ×2 (09:46→19:49)
[2022-02-03] MEDS: IBUPROFEN 600MG TAB PO PRN (11:42)
[2022-02-03] MEDS: diphenhydrAMINE 50MG CAP PO PRN (15:04)
[2022-02-03] MEDS: LORazepam 2 MG TAB PO PRN (15:05)
[2022-02-03 17:03] VITALS: BP 150/94
[2022-02-03] MEDS: TAMSULOSIN 0.4 MG CAP PO SCH (19:49)
[2022-02-03] MEDS: traZODone 50 MG TAB PO PRN (22:47)
[2022-02-03] MEDS: MOM 30ML SUSPENSION UDC PO PRN (23:14)
[2022-02-04] MEDS: IBUPROFEN 600MG TAB PO PRN ×3 (04:09→21:44)
[2022-02-04 06:57] VITALS: BP 167/99
[2022-02-04] MEDS: NICOTINE 21MG/24HR 1 EA TRANSDERMAL TD SCH (08:51)
[2022-02-04] MEDS: VALPROIC ACID 250MG CAP PO SCH ×2 (08:51→20:47)
[2022-02-04] MEDS: fluPHENAZine 5MG TABLET PO SCH ×2 (08:51→20:49)
[2022-02-04] MEDS: PROPRANOLOL 10 MG TAB PO SCH ×2 (08:52→20:48)
[2022-02-04] MEDS: MULTIVITAMINS/MINERALS THERAP 1 TAB PO SCH (08:52)
[2022-02-04] MEDS: ASPIRIN 81MG ENTERIC TABLET PO SCH (08:52)
[2022-02-04] MEDS: BENZTROPINE 0.5 MG TAB PO SCH ×2 (08:52→20:47)
[2022-02-04] MEDS: GABAPENTIN 300 MG CAP PO SCH ×3 (08:52→20:47)
[2022-02-04] MEDS: ASCORBIC ACID 500 MG TAB PO SCH (08:52)
[2022-02-04] MEDS: FUROSEMIDE 20 MG TAB PO SCH (08:52)
[2022-02-04] MEDS: diphenhydrAMINE 50MG CAP PO PRN ×2 (14:27→23:26)
[2022-02-04] MEDS: LORazepam 2 MG TAB PO PRN ×2 (14:29→23:26)
[2022-02-04] MEDS: TAMSULOSIN 0.4 MG CAP PO SCH (20:47)
[2022-02-05] MEDS: NICOTINE 21MG/24HR 1 EA TRANSDERMAL TD SCH (08:50)
[2022-02-05] MEDS: VALPROIC ACID 250MG CAP PO SCH ×2 (08:51→20:00)
[2022-02-05] MEDS: ASPIRIN 81MG ENTERIC TABLET PO SCH (08:51)
[2022-02-05] MEDS: GABAPENTIN 300 MG CAP PO SCH ×3 (08:51→20:00)
[2022-02-05] MEDS: fluPHENAZine 5MG TABLET PO SCH ×2 (08:51→20:00)
[2022-02-05] MEDS: BENZTROPINE 0.5 MG TAB PO SCH ×2 (08:51→20:00)
[2022-02-05] MEDS: PROPRANOLOL 10 MG TAB PO SCH ×2 (08:52→20:00)
[2022-02-05] MEDS: FUROSEMIDE 20 MG TAB PO SCH (08:52)
[2022-02-05] MEDS: ASCORBIC ACID 500 MG TAB PO SCH (08:52)
[2022-02-05] MEDS: MULTIVITAMINS/MINERALS THERAP 1 TAB PO SCH (08:52)
[2022-02-05] MEDS: IBUPROFEN 600MG TAB PO PRN (12:21)
[2022-02-05 18:16] VITALS: BP 133/69
[2022-02-05] MEDS: diphenhydrAMINE 50MG CAP PO PRN (18:32)
[2022-02-05] MEDS: LORazepam 2 MG TAB PO PRN (18:32)
[2022-02-05] MEDS: TAMSULOSIN 0.4 MG CAP PO SCH (20:00)
[2022-02-05] MEDS: traZODone 50 MG TAB PO PRN (23:08)
[2022-02-06] MEDS: IBUPROFEN 600MG TAB PO PRN ×2 (07:50→15:44)
[2022-02-06] MEDS: FUROSEMIDE 20 MG TAB PO SCH (08:55)
[2022-02-06] MEDS: GABAPENTIN 300 MG CAP PO SCH ×3 (08:55→22:14)
[2022-02-06] MEDS: MULTIVITAMINS/MINERALS THERAP 1 TAB PO SCH (08:56)
[2022-02-06] MEDS: ASCORBIC ACID 500 MG TAB PO SCH (08:56)
[2022-02-06] MEDS: ASPIRIN 81MG ENTERIC TABLET PO SCH (08:56)
[2022-02-06] MEDS: PROPRANOLOL 10 MG TAB PO SCH ×2 (08:56→22:16)
[2022-02-06] MEDS: BENZTROPINE 0.5 MG TAB PO SCH ×2 (08:56→22:14)
[2022-02-06] MEDS: fluPHENAZine 5MG TABLET PO SCH ×2 (08:57→22:17)
[2022-02-06] MEDS: VALPROIC ACID 250MG CAP PO SCH ×2 (08:57→22:14)
[2022-02-06] MEDS: NICOTINE 21MG/24HR 1 EA TRANSDERMAL TD SCH (08:58)
[2022-02-06] MEDS: diphenhydrAMINE 50MG CAP PO PRN (17:35)
[2022-02-06] MEDS: LORazepam 2 MG TAB PO PRN (17:37)
[2022-02-06 17:58] VITALS: BP 144/90
[2022-02-06] MEDS: MAALOX 30 ML SUSP *UDC PO PRN (18:28)
[2022-02-06] MEDS: MOM 30ML SUSPENSION UDC PO PRN (18:29)
[2022-02-06] MEDS: TAMSULOSIN 0.4 MG CAP PO SCH (22:16)
[2022-02-06] MEDS: traZODone 50 MG TAB PO PRN (23:18)
[2022-02-07 07:53] VITALS: BP 148/96
[2022-02-07] MEDS: PROPRANOLOL 10 MG TAB PO SCH ×2 (07:57→21:00)
[2022-02-07] MEDS: fluPHENAZine 5MG TABLET PO SCH ×2 (07:57→21:00)
[2022-02-07] MEDS: ASPIRIN 81MG ENTERIC TABLET PO SCH (07:57)
[2022-02-07] MEDS: VALPROIC ACID 250MG CAP PO SCH ×2 (07:57→21:00)
[2022-02-07] MEDS: MULTIVITAMINS/MINERALS THERAP 1 TAB PO SCH (07:58)
[2022-02-07] MEDS: GABAPENTIN 300 MG CAP PO SCH ×3 (07:58→21:00)
[2022-02-07] MEDS: FUROSEMIDE 20 MG TAB PO SCH (07:58)
[2022-02-07] MEDS: ASCORBIC ACID 500 MG TAB PO SCH (07:58)
[2022-02-07] MEDS: BENZTROPINE 0.5 MG TAB PO SCH ×2 (07:58→21:00)
[2022-02-07] MEDS: NICOTINE 21MG/24HR 1 EA TRANSDERMAL TD SCH (08:02)
[2022-02-07] MEDS: IBUPROFEN 600MG TAB PO PRN ×2 (10:12→16:12)
[2022-02-07] MEDS: diphenhydrAMINE 50MG CAP PO PRN (10:59)
[2022-02-07] MEDS: LORazepam 2 MG TAB PO PRN (11:01)
[2022-02-07 18:33] VITALS: BP 146/84
[2022-02-07] MEDS: TAMSULOSIN 0.4 MG CAP PO SCH (21:00)
[2022-02-08] MEDS: traZODone 50 MG TAB PO PRN (00:46)
[2022-02-08] MEDS: MOM 30ML SUSPENSION UDC PO PRN (03:03)
[2022-02-08] MEDS: MAALOX 30 ML SUSP *UDC PO PRN (03:03)
[2022-02-08] MEDS: VALPROIC ACID 250MG CAP PO SCH ×2 (09:00→17:57)
[2022-02-08] MEDS: GABAPENTIN 300 MG CAP PO SCH ×3 (09:00→21:00)
[2022-02-08] MEDS: ASCORBIC ACID 500 MG TAB PO SCH (09:00)
[2022-02-08] MEDS: FUROSEMIDE 20 MG TAB PO SCH (09:00)
[2022-02-08] MEDS: MULTIVITAMINS/MINERALS THERAP 1 TAB PO SCH (09:00)
[2022-02-08] MEDS: ASPIRIN 81MG ENTERIC TABLET PO SCH (09:34)
[2022-02-08] MEDS: diphenhydrAMINE 50MG CAP PO PRN (09:35)
[2022-02-08] MEDS: LORazepam 2 MG TAB PO PRN (09:35)
[2022-02-08] MEDS: NICOTINE 21MG/24HR 1 EA TRANSDERMAL TD SCH (09:41)
[2022-02-08] MEDS: PROPRANOLOL 10 MG TAB PO SCH ×2 (09:59→21:00)
[2022-02-08] MEDS: BENZTROPINE 0.5 MG TAB PO SCH ×2 (10:04→22:34)
[2022-02-08] MEDS: fluPHENAZine 5MG TABLET PO SCH ×2 (10:04→21:00)
[2022-02-08] MEDS ORDERED: diphenhydrAMINE 50MG CAP PO ONE (10:55)
[2022-02-08] MEDS ORDERED: LORazepam 2 MG TAB PO ONE (10:55)
[2022-02-08] MEDS: IBUPROFEN 600MG TAB PO PRN (17:52)
[2022-02-08] MEDS: TAMSULOSIN 0.4 MG CAP PO SCH (21:00)
[2022-02-08] MEDS ORDERED: DIVALPROEX 250MG *ER* TAB PO ONE (22:05)
[2022-02-09] MEDS: ASCORBIC ACID 500 MG TAB PO SCH (09:52)
[2022-02-09] MEDS: BENZTROPINE 0.5 MG TAB PO SCH ×2 (09:52→21:00)
[2022-02-09] MEDS: FUROSEMIDE 20 MG TAB PO SCH (09:53)
[2022-02-09] MEDS: MULTIVITAMINS/MINERALS THERAP 1 TAB PO SCH (09:54)
[2022-02-09] MEDS: VALPROIC ACID 250MG CAP PO SCH ×2 (09:54→21:00)
[2022-02-09] MEDS: fluPHENAZine 5MG TABLET PO SCH ×2 (09:54→21:00)
[2022-02-09] MEDS: ASPIRIN 81MG ENTERIC TABLET PO SCH (09:54)
[2022-02-09] MEDS: GABAPENTIN 300 MG CAP PO SCH ×3 (09:54→21:00)
[2022-02-09] MEDS: PROPRANOLOL 10 MG TAB PO SCH ×2 (09:56→21:00)
[2022-02-09] MEDS: NICOTINE 21MG/24HR 1 EA TRANSDERMAL TD SCH (09:57)
[2022-02-09] MEDS: IBUPROFEN 600MG TAB PO PRN (11:15)
[2022-02-09 13:10] VITALS: BP 150/77
[2022-02-09] MEDS: TAMSULOSIN 0.4 MG CAP PO SCH (21:00)
[2022-02-10] MEDS: PROPRANOLOL 10 MG TAB PO SCH ×2 (09:00→21:59)
[2022-02-10] MEDS: fluPHENAZine 5MG TABLET PO SCH ×2 (09:00→21:59)
[2022-02-10] MEDS: ASCORBIC ACID 500 MG TAB PO SCH (09:00)
[2022-02-10] MEDS: BENZTROPINE 0.5 MG TAB PO SCH ×2 (09:00→21:59)
[2022-02-10] MEDS: MULTIVITAMINS/MINERALS THERAP 1 TAB PO SCH (09:00)
[2022-02-10] MEDS: ASPIRIN 81MG ENTERIC TABLET PO SCH (09:00)
[2022-02-10] MEDS: FUROSEMIDE 20 MG TAB PO SCH (09:00)
[2022-02-10] MEDS: NICOTINE 21MG/24HR 1 EA TRANSDERMAL TD SCH (09:00)
[2022-02-10] MEDS: VALPROIC ACID 250MG CAP PO SCH ×2 (09:00→21:59)
[2022-02-10] MEDS: GABAPENTIN 300 MG CAP PO SCH ×3 (10:28→21:59)
[2022-02-10] MEDS: IBUPROFEN 600MG TAB PO PRN (10:29)
[2022-02-10] MEDS: diphenhydrAMINE 50MG CAP PO PRN (13:15)
[2022-02-10] MEDS: LORazepam 2 MG TAB PO PRN (13:16)
[2022-02-10] MEDS: TAMSULOSIN 0.4 MG CAP PO SCH (21:59)
[2022-02-11] MEDS: diphenhydrAMINE 50MG CAP PO PRN ×2 (01:59→16:02)
[2022-02-11] MEDS: NICOTINE 21MG/24HR 1 EA TRANSDERMAL TD PRN (02:04)
[2022-02-11] MEDS: LORazepam 2 MG TAB PO PRN ×2 (02:15→16:02)
[2022-02-11] MEDS: VALPROIC ACID 250MG CAP PO SCH ×2 (08:50→21:07)
[2022-02-11] MEDS: ASPIRIN 81MG ENTERIC TABLET PO SCH (08:51)
[2022-02-11] MEDS: ASCORBIC ACID 500 MG TAB PO SCH (08:51)
[2022-02-11] MEDS: BENZTROPINE 0.5 MG TAB PO SCH ×2 (08:54→21:05)
[2022-02-11] MEDS: PROPRANOLOL 10 MG TAB PO SCH ×2 (08:54→21:06)
[2022-02-11] MEDS: FUROSEMIDE 20 MG TAB PO SCH (08:55)
[2022-02-11] MEDS: MULTIVITAMINS/MINERALS THERAP 1 TAB PO SCH (08:55)
[2022-02-11] MEDS: fluPHENAZine 5MG TABLET PO SCH ×2 (08:55→21:05)
[2022-02-11] MEDS: GABAPENTIN 300 MG CAP PO SCH ×3 (08:55→21:05)
[2022-02-11] MEDS: IBUPROFEN 600MG TAB PO PRN (12:21)
[2022-02-11 16:43] VITALS: BP 138/88
[2022-02-11] MEDS: TAMSULOSIN 0.4 MG CAP PO SCH (21:06)
[2022-02-12] MEDS: diphenhydrAMINE 50MG CAP PO PRN ×2 (00:38→22:03)
[2022-02-12] MEDS: LORazepam 2 MG TAB PO PRN ×2 (00:38→22:02)
[2022-02-12] MEDS: IBUPROFEN 600MG TAB PO PRN ×3 (02:02→23:05)
[2022-02-12] MEDS: VALPROIC ACID 250MG CAP PO SCH ×2 (08:42→22:00)
[2022-02-12] MEDS: GABAPENTIN 300 MG CAP PO SCH ×3 (08:42→22:03)
[2022-02-12] MEDS: BENZTROPINE 0.5 MG TAB PO SCH ×2 (08:43→22:05)
[2022-02-12] MEDS: ASPIRIN 81MG ENTERIC TABLET PO SCH (08:43)
[2022-02-12] MEDS: fluPHENAZine 5MG TABLET PO SCH ×2 (08:43→22:01)
[2022-02-12] MEDS: MULTIVITAMINS/MINERALS THERAP 1 TAB PO SCH (08:43)
[2022-02-12] MEDS: PROPRANOLOL 10 MG TAB PO SCH ×2 (08:43→22:05)
[2022-02-12] MEDS: FUROSEMIDE 20 MG TAB PO SCH (08:43)
[2022-02-12] MEDS: ASCORBIC ACID 500 MG TAB PO SCH (08:43)
[2022-02-12] MEDS: NICOTINE 21MG/24HR 1 EA TRANSDERMAL TD PRN (15:38)
[2022-02-12 16:58] VITALS: BP 132/82
[2022-02-12] MEDS: TAMSULOSIN 0.4 MG CAP PO SCH (22:03)
[2022-02-12] MEDS: MOM 30ML SUSPENSION UDC PO PRN (23:03)
[2022-02-13 07:00] VITALS: BP 134/82
[2022-02-13 10:10] VITALS: BP 148/92
[2022-02-13] MEDS: PROPRANOLOL 10 MG TAB PO SCH ×2 (10:12→21:45)
[2022-02-13] MEDS: MULTIVITAMINS/MINERALS THERAP 1 TAB PO SCH (10:12)
[2022-02-13] MEDS: fluPHENAZine 5MG TABLET PO SCH ×2 (10:12→21:45)
[2022-02-13] MEDS: VALPROIC ACID 250MG CAP PO SCH ×2 (10:12→21:46)
[2022-02-13] MEDS: ASCORBIC ACID 500 MG TAB PO SCH (10:12)
[2022-02-13] MEDS: ASPIRIN 81MG ENTERIC TABLET PO SCH (10:13)
[2022-02-13] MEDS: FUROSEMIDE 20 MG TAB PO SCH (10:14)
[2022-02-13] MEDS: BENZTROPINE 0.5 MG TAB PO SCH ×2 (10:14→21:46)
[2022-02-13] MEDS: GABAPENTIN 300 MG CAP PO SCH ×3 (10:14→21:46)
[2022-02-13] MEDS: IBUPROFEN 600MG TAB PO PRN ×2 (13:18→21:52)
[2022-02-13 16:39] VITALS: BP 154/90
[2022-02-13] MEDS: NICOTINE 21MG/24HR 1 EA TRANSDERMAL TD PRN (17:35)
[2022-02-13] MEDS: TAMSULOSIN 0.4 MG CAP PO SCH (21:46)
[2022-02-13] MEDS: LORazepam 2 MG TAB PO PRN (22:59)
[2022-02-13] MEDS: diphenhydrAMINE 50MG CAP PO PRN (23:00)
[2022-02-14] MEDS: MOM 30ML SUSPENSION UDC PO PRN (01:38)
[2022-02-14] MEDS: traZODone 50 MG TAB PO PRN ×2 (01:38→23:20)
[2022-02-14] MEDS: NICOTINE 21MG/24HR 1 EA TRANSDERMAL TD PRN (08:03)
[2022-02-14] MEDS: VALPROIC ACID 250MG CAP PO SCH ×2 (08:04→20:05)
[2022-02-14] MEDS: fluPHENAZine 5MG TABLET PO SCH ×2 (08:05→20:07)
[2022-02-14] MEDS: GABAPENTIN 300 MG CAP PO SCH ×3 (08:05→20:07)
[2022-02-14] MEDS: PROPRANOLOL 10 MG TAB PO SCH ×2 (08:05→20:07)
[2022-02-14] MEDS: ASPIRIN 81MG ENTERIC TABLET PO SCH (08:05)
[2022-02-14] MEDS: ASCORBIC ACID 500 MG TAB PO SCH (08:05)
[2022-02-14] MEDS: MULTIVITAMINS/MINERALS THERAP 1 TAB PO SCH (08:05)
[2022-02-14] MEDS: BENZTROPINE 0.5 MG TAB PO SCH ×2 (08:06→20:05)
[2022-02-14] MEDS: FUROSEMIDE 20 MG TAB PO SCH (08:06)
[2022-02-14] MEDS: IBUPROFEN 600MG TAB PO PRN ×3 (09:11→20:14)
[2022-02-14] MEDS: MAALOX 30 ML SUSP *UDC PO PRN (09:44)
[2022-02-14] MEDS: fluPHENAZine DECAN 25MG/ML 5ML VIAL (J2680) IM SCH (15:59)
[2022-02-14 18:27] VITALS: BP 162/86
[2022-02-14] MEDS: TAMSULOSIN 0.4 MG CAP PO SCH (20:05)
[2022-02-14] MEDS: LORazepam 2 MG TAB PO PRN (21:22)
[2022-02-14] MEDS: diphenhydrAMINE 50MG CAP PO PRN (21:22)
[2022-02-15 08:30] VITALS: BP 140/84
[2022-02-15] MEDS: fluPHENAZine 5MG TABLET PO SCH ×2 (08:33→21:14)
[2022-02-15] MEDS: ASCORBIC ACID 500 MG TAB PO SCH (08:33)
[2022-02-15] MEDS: ASPIRIN 81MG ENTERIC TABLET PO SCH (08:33)
[2022-02-15] MEDS: GABAPENTIN 300 MG CAP PO SCH ×3 (08:33→21:14)
[2022-02-15] MEDS: VALPROIC ACID 250MG CAP PO SCH ×2 (08:33→21:13)
[2022-02-15] MEDS: PROPRANOLOL 10 MG TAB PO SCH ×2 (08:34→21:14)
[2022-02-15] MEDS: FUROSEMIDE 20 MG TAB PO SCH (08:34)
[2022-02-15] MEDS: MULTIVITAMINS/MINERALS THERAP 1 TAB PO SCH (08:34)
[2022-02-15] MEDS: BENZTROPINE 0.5 MG TAB PO SCH ×2 (08:34→21:14)
[2022-02-15] MEDS: IBUPROFEN 600MG TAB PO PRN ×2 (08:40→16:53)
[2022-02-15] MEDS: NICOTINE 21MG/24HR 1 EA TRANSDERMAL TD PRN (17:32)
[2022-02-15] MEDS: TAMSULOSIN 0.4 MG CAP PO SCH (21:14)
[2022-02-15] MEDS: LORazepam 2 MG TAB PO PRN (21:15)
[2022-02-15] MEDS: diphenhydrAMINE 50MG CAP PO PRN (21:15)
[2022-02-16] MEDS: IBUPROFEN 600MG TAB PO PRN ×3 (00:05→14:57)
[2022-02-16] MEDS: traZODone 50 MG TAB PO PRN (00:55)
[2022-02-16] MEDS: VALPROIC ACID 250MG CAP PO SCH ×2 (08:47→20:23)
[2022-02-16] MEDS: fluPHENAZine 5MG TABLET PO SCH ×2 (08:47→20:23)
[2022-02-16] MEDS: MULTIVITAMINS/MINERALS THERAP 1 TAB PO SCH (08:47)
[2022-02-16] MEDS: GABAPENTIN 300 MG CAP PO SCH ×3 (08:49→20:23)
[2022-02-16] MEDS: FUROSEMIDE 20 MG TAB PO SCH (08:49)
[2022-02-16] MEDS: ASCORBIC ACID 500 MG TAB PO SCH (08:49)
[2022-02-16] MEDS: ASPIRIN 81MG ENTERIC TABLET PO SCH (08:50)
[2022-02-16] MEDS: BENZTROPINE 0.5 MG TAB PO SCH ×2 (08:50→20:23)
[2022-02-16] MEDS: PROPRANOLOL 10 MG TAB PO SCH ×2 (08:50→20:23)
[2022-02-16 08:54] VITALS: BP 160/100
[2022-02-16 16:17] VITALS: BP 132/90
[2022-02-16] MEDS: NICOTINE 21MG/24HR 1 EA TRANSDERMAL TD PRN (16:30)
[2022-02-16] MEDS: TAMSULOSIN 0.4 MG CAP PO SCH (20:23)
[2022-02-16] MEDS: LORazepam 2 MG TAB PO PRN (22:43)
[2022-02-16] MEDS: diphenhydrAMINE 50MG CAP PO PRN (22:43)
[2022-02-17] MEDS: PROPRANOLOL 10 MG TAB PO SCH ×2 (08:31→21:07)
[2022-02-17] MEDS: ASCORBIC ACID 500 MG TAB PO SCH (08:31)
[2022-02-17] MEDS: ASPIRIN 81MG ENTERIC TABLET PO SCH (08:31)
[2022-02-17] MEDS: MULTIVITAMINS/MINERALS THERAP 1 TAB PO SCH (08:31)
[2022-02-17] MEDS: BENZTROPINE 0.5 MG TAB PO SCH ×2 (08:31→21:06)
[2022-02-17] MEDS: GABAPENTIN 300 MG CAP PO SCH ×3 (08:31→21:06)
[2022-02-17] MEDS: FUROSEMIDE 20 MG TAB PO SCH (08:31)
[2022-02-17] MEDS: fluPHENAZine 5MG TABLET PO SCH ×2 (08:31→21:07)
[2022-02-17] MEDS: VALPROIC ACID 250MG CAP PO SCH ×2 (08:31→21:06)
[2022-02-17 08:47] VITALS: BP_SYST 140; BP_SYST 142; BP_DIAS 90; BP_DIAS 92
[2022-02-17] MEDS: NICOTINE 21MG/24HR 1 EA TRANSDERMAL TD PRN (15:29)
[2022-02-17] MEDS: IBUPROFEN 600MG TAB PO PRN (15:53)
[2022-02-17 16:19] VITALS: BP 156/98
[2022-02-17] MEDS: TAMSULOSIN 0.4 MG CAP PO SCH (21:06)
[2022-02-18] MEDS: VALPROIC ACID 250MG CAP PO SCH ×2 (09:06→21:10)
[2022-02-18] MEDS: ASPIRIN 81MG ENTERIC TABLET PO SCH (09:06)
[2022-02-18] MEDS: BENZTROPINE 0.5 MG TAB PO SCH ×2 (09:06→21:11)
[2022-02-18] MEDS: ASCORBIC ACID 500 MG TAB PO SCH (09:06)
[2022-02-18] MEDS: PROPRANOLOL 10 MG TAB PO SCH ×2 (09:07→21:12)
[2022-02-18] MEDS: MULTIVITAMINS/MINERALS THERAP 1 TAB PO SCH (09:07)
[2022-02-18] MEDS: GABAPENTIN 300 MG CAP PO SCH ×3 (09:07→21:10)
[2022-02-18] MEDS: FUROSEMIDE 20 MG TAB PO SCH (09:07)
[2022-02-18] MEDS: fluPHENAZine 5MG TABLET PO SCH ×2 (09:07→21:10)
[2022-02-18] MEDS: diphenhydrAMINE 50MG CAP PO PRN (14:40)
[2022-02-18] MEDS: LORazepam 2 MG TAB PO PRN (14:40)
[2022-02-18] MEDS: NICOTINE 21MG/24HR 1 EA TRANSDERMAL TD PRN (14:43)
[2022-02-18 18:21] VITALS: BP 154/90
[2022-02-18] MEDS: TAMSULOSIN 0.4 MG CAP PO SCH (21:10)
[2022-02-18] MEDS: CEPACOL LOZENGE PO PRN (22:30)
[2022-02-19 06:17] VITALS: BP 131/73
[2022-02-19] MEDS: GABAPENTIN 300 MG CAP PO SCH ×3 (09:14→21:00)
[2022-02-19] MEDS: FUROSEMIDE 20 MG TAB PO SCH (09:15)
[2022-02-19] MEDS: ASCORBIC ACID 500 MG TAB PO SCH (09:18)
[2022-02-19] MEDS: BENZTROPINE 0.5 MG TAB PO SCH ×2 (09:18→21:00)
[2022-02-19] MEDS: fluPHENAZine 5MG TABLET PO SCH ×2 (09:19→21:00)
[2022-02-19] MEDS: MULTIVITAMINS/MINERALS THERAP 1 TAB PO SCH (09:19)
[2022-02-19] MEDS: VALPROIC ACID 250MG CAP PO SCH ×2 (09:19→21:00)
[2022-02-19] MEDS: ASPIRIN 81MG ENTERIC TABLET PO SCH (09:19)
[2022-02-19] MEDS: PROPRANOLOL 10 MG TAB PO SCH ×2 (09:19→21:00)
[2022-02-19] MEDS: CEPACOL LOZENGE PO PRN (15:48)
[2022-02-19 16:13] VITALS: BP 159/89
[2022-02-19] MEDS: TAMSULOSIN 0.4 MG CAP PO SCH (21:00)
[2022-02-20] MEDS: CEPACOL LOZENGE PO PRN ×4 (02:34→23:52)
[2022-02-20] MEDS: BENZTROPINE 0.5 MG TAB PO SCH ×2 (08:53→20:03)
[2022-02-20] MEDS: PROPRANOLOL 10 MG TAB PO SCH ×2 (08:53→20:03)
[2022-02-20] MEDS: FUROSEMIDE 20 MG TAB PO SCH (08:53)
[2022-02-20] MEDS: VALPROIC ACID 250MG CAP PO SCH ×2 (08:53→20:03)
[2022-02-20] MEDS: ASPIRIN 81MG ENTERIC TABLET PO SCH (08:53)
[2022-02-20] MEDS: ASCORBIC ACID 500 MG TAB PO SCH (08:53)
[2022-02-20] MEDS: MULTIVITAMINS/MINERALS THERAP 1 TAB PO SCH (08:53)
[2022-02-20] MEDS: fluPHENAZine 5MG TABLET PO SCH ×2 (08:54→20:02)
[2022-02-20] MEDS: GABAPENTIN 300 MG CAP PO SCH ×3 (08:54→20:02)
[2022-02-20] MEDS: TAMSULOSIN 0.4 MG CAP PO SCH (20:03)
[2022-02-21] MEDS: IBUPROFEN 600MG TAB PO PRN ×2 (01:41→11:33)
[2022-02-21] MEDS: CEPACOL LOZENGE PO PRN ×3 (05:55→16:55)
[2022-02-21 06:21] VITALS: BP 160/110
[2022-02-21] MEDS: PROPRANOLOL 10 MG TAB PO SCH ×3 (09:00→22:12)
[2022-02-21] MEDS: BENZTROPINE 0.5 MG TAB PO SCH ×3 (09:00→22:12)
[2022-02-21] MEDS: FUROSEMIDE 20 MG TAB PO SCH (09:00)
[2022-02-21] MEDS: ASPIRIN 81MG ENTERIC TABLET PO SCH (09:00)
[2022-02-21] MEDS: MULTIVITAMINS/MINERALS THERAP 1 TAB PO SCH (09:00)
[2022-02-21] MEDS: VALPROIC ACID 250MG CAP PO SCH ×3 (09:00→22:12)
[2022-02-21] MEDS: ASCORBIC ACID 500 MG TAB PO SCH (09:00)
[2022-02-21] MEDS: GABAPENTIN 300 MG CAP PO SCH ×3 (09:02→21:00)
[2022-02-21] MEDS: fluPHENAZine 5MG TABLET PO SCH ×2 (09:02→21:00)
[2022-02-21] MEDS: TAMSULOSIN 0.4 MG CAP PO SCH ×2 (21:00→22:12)
[2022-02-22] MEDS: traZODone 50 MG TAB PO PRN (00:58)
[2022-02-22] MEDS: IBUPROFEN 600MG TAB PO PRN ×3 (03:10→19:23)
[2022-02-22 06:20] VITALS: BP 172/104
[2022-02-22] MEDS: PROPRANOLOL 10 MG TAB PO SCH ×2 (06:30→21:46)
[2022-02-22] MEDS: BENZTROPINE 0.5 MG TAB PO SCH ×2 (08:36→21:46)
[2022-02-22] MEDS: ASCORBIC ACID 500 MG TAB PO SCH (08:37)
[2022-02-22] MEDS: FUROSEMIDE 20 MG TAB PO SCH (08:37)
[2022-02-22] MEDS: GABAPENTIN 300 MG CAP PO SCH ×3 (08:37→21:45)
[2022-02-22] MEDS: VALPROIC ACID 250MG CAP PO SCH ×2 (08:37→21:45)
[2022-02-22] MEDS: ASPIRIN 81MG ENTERIC TABLET PO SCH (08:38)
[2022-02-22] MEDS: MULTIVITAMINS/MINERALS THERAP 1 TAB PO SCH (08:38)
[2022-02-22] MEDS: fluPHENAZine 5MG TABLET PO SCH ×2 (08:38→21:45)
[2022-02-22] MEDS: CEPACOL LOZENGE PO PRN (09:20)
[2022-02-22] MEDS: diphenhydrAMINE 50MG CAP PO PRN (10:55)
[2022-02-22] MEDS: LORazepam 2 MG TAB PO PRN (10:55)
[2022-02-22] MEDS: DOCUSATE SODIUM 100MG CAPSULE PO PRN (12:14)
[2022-02-22] MEDS: MOM 30ML SUSPENSION UDC PO PRN (12:38)
[2022-02-22 17:00] VITALS: BP 112/70
[2022-02-22] MEDS: TAMSULOSIN 0.4 MG CAP PO SCH (21:45)
[2022-02-23] MEDS: CEPACOL LOZENGE PO PRN ×2 (00:38→10:19)
[2022-02-23] MEDS: IBUPROFEN 600MG TAB PO PRN ×3 (05:25→22:51)
[2022-02-23 06:55] VITALS: BP 137/94
[2022-02-23] MEDS: BENZTROPINE 0.5 MG TAB PO SCH ×2 (09:38→21:58)
[2022-02-23] MEDS: ASPIRIN 81MG ENTERIC TABLET PO SCH (09:40)
[2022-02-23] MEDS: VALPROIC ACID 250MG CAP PO SCH ×2 (09:40→21:58)
[2022-02-23] MEDS: MULTIVITAMINS/MINERALS THERAP 1 TAB PO SCH (09:41)
[2022-02-23] MEDS: PROPRANOLOL 10 MG TAB PO SCH ×2 (09:41→21:58)
[2022-02-23] MEDS: GABAPENTIN 300 MG CAP PO SCH ×3 (09:41→21:58)
[2022-02-23] MEDS: FUROSEMIDE 20 MG TAB PO SCH (09:41)
[2022-02-23] MEDS: ASCORBIC ACID 500 MG TAB PO SCH (09:42)
[2022-02-23] MEDS: fluPHENAZine 5MG TABLET PO SCH ×2 (09:42→21:58)
[2022-02-23] MEDS: diphenhydrAMINE 50MG CAP PO PRN (14:53)
[2022-02-23] MEDS: LORazepam 2 MG TAB PO PRN (14:54)
[2022-02-23 18:20] VITALS: BP 132/80
[2022-02-23] MEDS: TAMSULOSIN 0.4 MG CAP PO SCH (21:57)
[2022-02-24] MEDS: traZODone 50 MG TAB PO PRN (00:47)
[2022-02-24] MEDS: IBUPROFEN 600MG TAB PO PRN (05:13)
[2022-02-24 06:28] VITALS: BP 132/71
[2022-02-24] MEDS: MULTIVITAMINS/MINERALS THERAP 1 TAB PO SCH (08:40)
[2022-02-24] MEDS: ASPIRIN 81MG ENTERIC TABLET PO SCH (08:40)
[2022-02-24] MEDS: fluPHENAZine 5MG TABLET PO SCH ×2 (08:40→21:05)
[2022-02-24] MEDS: GABAPENTIN 300 MG CAP PO SCH ×3 (08:41→21:05)
[2022-02-24] MEDS: PROPRANOLOL 10 MG TAB PO SCH ×2 (08:41→21:05)
[2022-02-24] MEDS: FUROSEMIDE 20 MG TAB PO SCH (08:41)
[2022-02-24] MEDS: BENZTROPINE 0.5 MG TAB PO SCH ×2 (08:42→21:05)
[2022-02-24] MEDS: ASCORBIC ACID 500 MG TAB PO SCH (08:44)
[2022-02-24] MEDS: VALPROIC ACID 250MG CAP PO SCH ×2 (08:44→21:05)
[2022-02-24] MEDS: MOM 30ML SUSPENSION UDC PO PRN (10:28)
[2022-02-24] MEDS: MAALOX 30 ML SUSP *UDC PO PRN (14:56)
[2022-02-24 17:46] VITALS: BP 134/70
[2022-02-24] MEDS: LOPERAMIDE 2 MG CAPLET PO PRN (21:04)
[2022-02-24] MEDS: TAMSULOSIN 0.4 MG CAP PO SCH (21:05)
[2022-02-25] MEDS: CEPACOL LOZENGE PO PRN ×3 (00:59→16:48)
[2022-02-25] MEDS: IBUPROFEN 600MG TAB PO PRN (00:59)
[2022-02-25 08:17] VITALS: BP 148/91
[2022-02-25] MEDS: ASCORBIC ACID 500 MG TAB PO SCH (08:39)
[2022-02-25] MEDS: FUROSEMIDE 20 MG TAB PO SCH (08:42)
[2022-02-25] MEDS: ASPIRIN 81MG ENTERIC TABLET PO SCH (08:42)
[2022-02-25] MEDS: fluPHENAZine 5MG TABLET PO SCH ×2 (08:42→20:31)
[2022-02-25] MEDS: GABAPENTIN 300 MG CAP PO SCH ×3 (08:43→20:31)
[2022-02-25] MEDS: MULTIVITAMINS/MINERALS THERAP 1 TAB PO SCH (08:43)
[2022-02-25] MEDS: PROPRANOLOL 10 MG TAB PO SCH ×2 (08:43→20:32)
[2022-02-25] MEDS: VALPROIC ACID 250MG CAP PO SCH ×2 (08:43→20:31)
[2022-02-25] MEDS: BENZTROPINE 0.5 MG TAB PO SCH ×2 (08:44→20:31)
[2022-02-25] MEDS: MAALOX 30 ML SUSP *UDC PO PRN (12:01)
[2022-02-25 16:30] VITALS: BP 156/96
[2022-02-25] MEDS: DOCUSATE SODIUM 100MG CAPSULE PO PRN (16:48)
[2022-02-25] MEDS: TAMSULOSIN 0.4 MG CAP PO SCH (20:31)
[2022-02-25] MEDS: MOM 30ML SUSPENSION UDC PO PRN (20:36)
[2022-02-26] MEDS: CEPACOL LOZENGE PO PRN ×3 (01:17→17:44)
[2022-02-26] MEDS: DOCUSATE SODIUM 100MG CAPSULE PO PRN (04:14)
[2022-02-26] MEDS: IBUPROFEN 600MG TAB PO PRN ×2 (04:14→14:08)
[2022-02-26 06:42] VITALS: BP 171/94
[2022-02-26] MEDS: BENZTROPINE 0.5 MG TAB PO SCH ×2 (10:25→20:37)
[2022-02-26] MEDS: fluPHENAZine 5MG TABLET PO SCH ×2 (10:25→20:36)
[2022-02-26] MEDS: VALPROIC ACID 250MG CAP PO SCH ×2 (10:25→20:36)
[2022-02-26] MEDS: ASPIRIN 81MG ENTERIC TABLET PO SCH (10:26)
[2022-02-26] MEDS: MULTIVITAMINS/MINERALS THERAP 1 TAB PO SCH (10:26)
[2022-02-26] MEDS: GABAPENTIN 300 MG CAP PO SCH ×3 (10:26→20:37)
[2022-02-26] MEDS: FUROSEMIDE 20 MG TAB PO SCH (10:26)
[2022-02-26] MEDS: ASCORBIC ACID 500 MG TAB PO SCH (10:26)
[2022-02-26] MEDS: PROPRANOLOL 10 MG TAB PO SCH ×2 (10:27→20:37)
[2022-02-26] MEDS: NICOTINE 21MG/24HR 1 EA TRANSDERMAL TD PRN (11:53)
[2022-02-26 16:31] VITALS: BP 156/98
[2022-02-26] MEDS: TAMSULOSIN 0.4 MG CAP PO SCH (20:37)
[2022-02-26] MEDS: LORazepam 2 MG TAB PO PRN (23:34)
[2022-02-26] MEDS: diphenhydrAMINE 50MG CAP PO PRN (23:34)
[2022-02-27] MEDS: CEPACOL LOZENGE PO PRN ×2 (00:43→13:07)
[2022-02-27] MEDS: VALPROIC ACID 250MG CAP PO SCH ×2 (09:45→21:41)
[2022-02-27] MEDS: PROPRANOLOL 10 MG TAB PO SCH ×2 (09:46→21:42)
[2022-02-27] MEDS: fluPHENAZine 5MG TABLET PO SCH ×2 (09:47→21:42)
[2022-02-27] MEDS: ASPIRIN 81MG ENTERIC TABLET PO SCH (09:47)
[2022-02-27] MEDS: FUROSEMIDE 20 MG TAB PO SCH (09:47)
[2022-02-27] MEDS: MULTIVITAMINS/MINERALS THERAP 1 TAB PO SCH (09:47)
[2022-02-27] MEDS: BENZTROPINE 0.5 MG TAB PO SCH ×2 (09:47→21:42)
[2022-02-27] MEDS: GABAPENTIN 300 MG CAP PO SCH ×3 (09:47→21:42)
[2022-02-27] MEDS: ASCORBIC ACID 500 MG TAB PO SCH (09:48)
[2022-02-27] MEDS: NICOTINE 21MG/24HR 1 EA TRANSDERMAL TD PRN (13:07)
[2022-02-27] MEDS: LORazepam 2 MG TAB PO PRN ×2 (14:14→23:00)
[2022-02-27] MEDS: diphenhydrAMINE 50MG CAP PO PRN ×2 (14:14→23:00)
[2022-02-27 15:53] VITALS: BP 148/82
[2022-02-27] MEDS: TAMSULOSIN 0.4 MG CAP PO SCH (21:42)
[2022-02-27] MEDS: MOM 30ML SUSPENSION UDC PO PRN (23:00)
[2022-02-28] MEDS: traZODone 50 MG TAB PO PRN ×2 (00:59→21:38)
[2022-02-28] MEDS: fluPHENAZine DECAN 25MG/ML 5ML VIAL (J2680) IM SCH (09:00)
[2022-02-28] MEDS: VALPROIC ACID 250MG CAP PO SCH ×2 (10:39→21:38)
[2022-02-28] MEDS: ASPIRIN 81MG ENTERIC TABLET PO SCH (10:39)
[2022-02-28] MEDS: fluPHENAZine 5MG TABLET PO SCH ×2 (10:40→21:38)
[2022-02-28] MEDS: ASCORBIC ACID 500 MG TAB PO SCH (10:40)
[2022-02-28] MEDS: MULTIVITAMINS/MINERALS THERAP 1 TAB PO SCH (10:40)
[2022-02-28] MEDS: PROPRANOLOL 10 MG TAB PO SCH ×2 (10:40→21:38)
[2022-02-28] MEDS: GABAPENTIN 300 MG CAP PO SCH ×3 (10:40→21:38)
[2022-02-28] MEDS: FUROSEMIDE 20 MG TAB PO SCH (10:41)
[2022-02-28] MEDS: BENZTROPINE 0.5 MG TAB PO SCH ×2 (10:41→21:38)
[2022-02-28 11:23] VITALS: BP 160/110
[2022-02-28] MEDS: MAALOX 30 ML SUSP *UDC PO PRN (17:22)
[2022-02-28] MEDS: CEPACOL LOZENGE PO PRN (17:22)
[2022-02-28] MEDS: MOM 30ML SUSPENSION UDC PO PRN (17:22)
[2022-02-28 18:29] VITALS: BP 154/95
[2022-02-28] MEDS: TAMSULOSIN 0.4 MG CAP PO SCH (21:38)
[2022-02-28] MEDS: LORazepam 2 MG TAB PO PRN (21:48)
[2022-02-28] MEDS: NICOTINE 21MG/24HR 1 EA TRANSDERMAL TD PRN (22:05)
[2022-03-01] MEDS: diphenhydrAMINE 50MG CAP PO PRN (03:34)
[2022-03-01] MEDS: CEPACOL LOZENGE PO PRN ×4 (05:35→23:48)
[2022-03-01 06:39] VITALS: BP 155/88
[2022-03-01] MEDS: VALPROIC ACID 250MG CAP PO SCH ×2 (09:36→21:00)
[2022-03-01] MEDS: ASCORBIC ACID 500 MG TAB PO SCH (09:36)
[2022-03-01] MEDS: fluPHENAZine 5MG TABLET PO SCH ×2 (09:36→21:00)
[2022-03-01] MEDS: FUROSEMIDE 20 MG TAB PO SCH (09:36)
[2022-03-01] MEDS: MULTIVITAMINS/MINERALS THERAP 1 TAB PO SCH (09:37)
[2022-03-01] MEDS: PROPRANOLOL 10 MG TAB PO SCH ×2 (09:37→21:00)
[2022-03-01] MEDS: ASPIRIN 81MG ENTERIC TABLET PO SCH (09:37)
[2022-03-01] MEDS: BENZTROPINE 0.5 MG TAB PO SCH ×2 (09:37→21:00)
[2022-03-01] MEDS: GABAPENTIN 300 MG CAP PO SCH ×3 (09:37→21:00)
[2022-03-01] MEDS: NICOTINE POLACRILEX 2 MG GUM PO PRN ×2 (13:15→17:31)
[2022-03-01] MEDS: fluPHENAZine DECAN 25MG/ML 5ML VIAL (J2680) IM SCH (15:22)
[2022-03-01 16:22] VITALS: BP 156/98
[2022-03-01] MEDS: TAMSULOSIN 0.4 MG CAP PO SCH (21:00)
[2022-03-02] MEDS: GABAPENTIN 300 MG CAP PO SCH ×3 (09:00→21:00)
[2022-03-02] MEDS: ASCORBIC ACID 500 MG TAB PO SCH (09:00)
[2022-03-02] MEDS: ASPIRIN 81MG ENTERIC TABLET PO SCH (09:00)
[2022-03-02] MEDS: VALPROIC ACID 250MG CAP PO SCH ×2 (09:00→21:00)
[2022-03-02] MEDS: PROPRANOLOL 10 MG TAB PO SCH ×2 (09:00→21:00)
[2022-03-02] MEDS: FUROSEMIDE 20 MG TAB PO SCH (09:00)
[2022-03-02] MEDS: BENZTROPINE 0.5 MG TAB PO SCH ×2 (09:00→21:00)
[2022-03-02] MEDS: fluPHENAZine 5MG TABLET PO SCH ×2 (09:00→21:00)
[2022-03-02] MEDS: MULTIVITAMINS/MINERALS THERAP 1 TAB PO SCH (09:00)
[2022-03-02] MEDS: NICOTINE POLACRILEX 2 MG GUM PO PRN ×3 (15:16→23:14)
[2022-03-02] MEDS: CEPACOL LOZENGE PO PRN ×3 (15:16→23:13)
[2022-03-02] MEDS: TAMSULOSIN 0.4 MG CAP PO SCH (21:00)
[2022-03-03] MEDS: NICOTINE POLACRILEX 2 MG GUM PO PRN ×3 (05:36→21:47)
[2022-03-03] MEDS: CEPACOL LOZENGE PO PRN ×3 (05:36→21:47)
[2022-03-03 06:44] VITALS: BP 147/96
[2022-03-03] MEDS: GABAPENTIN 300 MG CAP PO SCH ×3 (09:00→21:46)
[2022-03-03] MEDS: ASPIRIN 81MG ENTERIC TABLET PO SCH (09:00)
[2022-03-03] MEDS: ASCORBIC ACID 500 MG TAB PO SCH (09:00)
[2022-03-03] MEDS: BENZTROPINE 0.5 MG TAB PO SCH ×2 (09:00→21:00)
[2022-03-03] MEDS: MULTIVITAMINS/MINERALS THERAP 1 TAB PO SCH (09:00)
[2022-03-03] MEDS: VALPROIC ACID 250MG CAP PO SCH ×2 (09:00→21:00)
[2022-03-03] MEDS: FUROSEMIDE 20 MG TAB PO SCH (09:00)
[2022-03-03] MEDS: PROPRANOLOL 10 MG TAB PO SCH ×2 (09:00→21:00)
[2022-03-03] MEDS: fluPHENAZine 5MG TABLET PO SCH ×2 (09:00→21:00)
[2022-03-03] MEDS: TAMSULOSIN 0.4 MG CAP PO SCH (21:00)
[2022-03-04] MEDS: diphenhydrAMINE 50MG CAP PO PRN (02:45)
[2022-03-04] MEDS: LORazepam 2 MG TAB PO PRN (02:46)
[2022-03-04] MEDS: FUROSEMIDE 20 MG TAB PO SCH (08:56)
[2022-03-04] MEDS: ASPIRIN 81MG ENTERIC TABLET PO SCH (08:56)
[2022-03-04] MEDS: MULTIVITAMINS/MINERALS THERAP 1 TAB PO SCH (08:56)
[2022-03-04] MEDS: GABAPENTIN 300 MG CAP PO SCH ×3 (08:56→22:06)
[2022-03-04] MEDS: PROPRANOLOL 10 MG TAB PO SCH ×2 (08:56→22:07)
[2022-03-04] MEDS: fluPHENAZine 5MG TABLET PO SCH ×2 (08:56→22:07)
[2022-03-04] MEDS: CEPACOL LOZENGE PO PRN (08:57)
[2022-03-04] MEDS: BENZTROPINE 0.5 MG TAB PO SCH ×2 (08:57→22:07)
[2022-03-04] MEDS: ASCORBIC ACID 500 MG TAB PO SCH (08:57)
[2022-03-04] MEDS: NICOTINE POLACRILEX 2 MG GUM PO PRN (08:57)
[2022-03-04] MEDS: VALPROIC ACID 250MG CAP PO SCH ×2 (08:57→22:07)
[2022-03-04] MEDS: IBUPROFEN 600MG TAB PO PRN (15:47)
[2022-03-04 17:34] VITALS: BP 111/68
[2022-03-04] MEDS: TAMSULOSIN 0.4 MG CAP PO SCH (22:07)
[2022-03-05] MEDS: DOCUSATE SODIUM 100MG CAPSULE PO PRN ×2 (01:21→22:07)
[2022-03-05] MEDS: IBUPROFEN 600MG TAB PO PRN ×2 (01:22→14:51)
[2022-03-05 06:29] VITALS: BP 160/92
[2022-03-05 06:58] LABS: BASO # 0.1 10^3/uL (0.0-0.2); BASO % 0.8 % (0.0-1.0); EOS # 0.3 10^3/uL (0.0-0.5); EOS % 3.3 % (0.0-3.0); HEMATOCRIT 40.1 % (42.0-52.0); HEMOGLOBIN 12.8 g/dl (13.5-17.5); LYMPH # 2.5 10^3/uL (1.5-5.0); LYMPH % 32.9 % (24.0-44.0); MEAN CORPUSCULAR HEMOGLOBIN 29.4 pg (27.0-33.0); MEAN CORPUSCULAR HGB CONC 31.9 g/dl (32.0-36.5); MONO # 0.9 10^3/uL (0.0-0.8); MONO % 11.6 % (2.0-8.0); NEUTROPHILS # 3.8 10^3/uL (1.5-8.5); NEUTROPHILS % 51.1 % (36.0-66.0); PLATELET COUNT, AUTOMATED 206 10^3/uL (150-450); RED BLOOD COUNT 4.36 10^6/uL (4.30-6.10); WHITE BLOOD COUNT 7.5 10^3/uL (4.0-10.0)
[2022-03-05 07:23] LABS: BLOOD UREA NITROGEN 12 MG/DL (7-18); CARBON DIOXIDE LEVEL 31 MEQ/L (21-32); CHLORIDE LEVEL 99 MEQ/L (98-107); CREATININE FOR GFR 0.78 MG/DL (0.70-1.30); GLOMERULAR FILTRATION RATE > 60.0 (>56); GLUCOSE, FASTING 88 MG/DL (70-100); POTASSIUM SERUM 4.4 MEQ/L (3.5-5.1); SODIUM LEVEL 134 MEQ/L (136-145); VALPROIC ACID (DEPAKOTE) 78.4 UG/ML (50.0-100.0)
[2022-03-05] MEDS: VALPROIC ACID 250MG CAP PO SCH ×2 (07:44→21:08)
[2022-03-05] MEDS: fluPHENAZine 5MG TABLET PO SCH ×2 (07:45→21:08)
[2022-03-05] MEDS: ASPIRIN 81MG ENTERIC TABLET PO SCH (07:46)
[2022-03-05] MEDS: GABAPENTIN 300 MG CAP PO SCH ×3 (07:46→21:07)
[2022-03-05] MEDS: MULTIVITAMINS/MINERALS THERAP 1 TAB PO SCH (07:46)
[2022-03-05] MEDS: PROPRANOLOL 10 MG TAB PO SCH ×2 (07:47→21:07)
[2022-03-05] MEDS: BENZTROPINE 0.5 MG TAB PO SCH ×2 (07:47→21:07)
[2022-03-05] MEDS: FUROSEMIDE 20 MG TAB PO SCH (07:47)
[2022-03-05] MEDS: ASCORBIC ACID 500 MG TAB PO SCH (07:47)
[2022-03-05] MEDS: CEPACOL LOZENGE PO PRN ×2 (10:37→19:38)
[2022-03-05] MEDS: NICOTINE POLACRILEX 2 MG GUM PO PRN ×2 (10:38→19:39)
[2022-03-05 18:14] VITALS: BP 148/96
[2022-03-05] MEDS: TAMSULOSIN 0.4 MG CAP PO SCH (21:07)
[2022-03-06] MEDS: diphenhydrAMINE 50MG CAP PO PRN ×2 (01:01→23:39)
[2022-03-06] MEDS: LORazepam 2 MG TAB PO PRN ×2 (01:01→23:40)
[2022-03-06] MEDS: CEPACOL LOZENGE PO PRN ×2 (01:19→19:51)
[2022-03-06] MEDS: NICOTINE POLACRILEX 2 MG GUM PO PRN ×3 (01:20→19:52)
[2022-03-06] MEDS: MOM 30ML SUSPENSION UDC PO PRN (01:45)
[2022-03-06] MEDS: VALPROIC ACID 250MG CAP PO SCH ×2 (10:42→19:51)
[2022-03-06] MEDS: ASPIRIN 81MG ENTERIC TABLET PO SCH (10:42)
[2022-03-06] MEDS: fluPHENAZine 5MG TABLET PO SCH ×2 (10:42→19:50)
[2022-03-06] MEDS: ASCORBIC ACID 500 MG TAB PO SCH (10:42)
[2022-03-06] MEDS: BENZTROPINE 0.5 MG TAB PO SCH ×2 (10:43→19:50)
[2022-03-06] MEDS: MULTIVITAMINS/MINERALS THERAP 1 TAB PO SCH (10:43)
[2022-03-06] MEDS: GABAPENTIN 300 MG CAP PO SCH ×3 (10:43→19:49)
[2022-03-06] MEDS: FUROSEMIDE 20 MG TAB PO SCH (10:43)
[2022-03-06] MEDS: PROPRANOLOL 10 MG TAB PO SCH ×2 (10:44→19:49)
[2022-03-06 18:17] VITALS: BP 132/80
[2022-03-06] MEDS: TAMSULOSIN 0.4 MG CAP PO SCH (19:49)
[2022-03-06] MEDS: IBUPROFEN 600MG TAB PO PRN (23:46)
[2022-03-07] MEDS: traZODone 50 MG TAB PO PRN (00:22)
[2022-03-07] MEDS: MULTIVITAMINS/MINERALS THERAP 1 TAB PO SCH (08:55)
[2022-03-07] MEDS: BENZTROPINE 0.5 MG TAB PO SCH (08:56)
[2022-03-07] MEDS: FUROSEMIDE 20 MG TAB PO SCH (08:56)
[2022-03-07] MEDS: ASCORBIC ACID 500 MG TAB PO SCH (08:56)
[2022-03-07] MEDS: ASPIRIN 81MG ENTERIC TABLET PO SCH (08:56)
[2022-03-07] MEDS: GABAPENTIN 300 MG CAP PO SCH ×2 (08:56→15:05)
[2022-03-07] MEDS: fluPHENAZine 5MG TABLET PO SCH (08:56)
[2022-03-07 08:57] VITALS: BP 145/84
[2022-03-07] MEDS: PROPRANOLOL 10 MG TAB PO SCH (08:57)
[2022-03-07] MEDS: VALPROIC ACID 250MG CAP PO SCH (08:57)
[2022-03-07] MEDS: CEPACOL LOZENGE PO PRN ×2 (10:00→14:10)
[2022-03-07] MEDS: NICOTINE POLACRILEX 2 MG GUM PO PRN ×2 (10:01→14:08)
[2022-03-07] MEDS ORDERED: FLUP5TAB13 PO (11:48)
[2022-03-07] MEDS ORDERED: TRAZ-252 PO (11:48)
[2022-03-07] MEDS ORDERED: COLA100C5 PO (11:48)
[2022-03-07] MEDS ORDERED: FLUP25VL IM (11:48)
[2022-03-07] MEDS ORDERED: VALP1CAP2 PO ×2 (11:48→16:04)
[2022-03-07] MEDS ORDERED: FLOM0.4C39 PO (11:48)
[2022-03-07] MEDS ORDERED: GABA-282 PO (11:48)
[2022-03-07] MEDS: IBUPROFEN 600MG TAB PO PRN (13:20)
== END 2022-03-07 16:56 | disposition home or self-care (01) | DRG 885 ==
LOC: M ED 12:58 → M ED INP 18:42 → M PSY 22:14
PROVIDERS: ADMIT Psychiatry & Neurology Psychiatry; ATTEND Psychiatry & Neurology Psychiatry
PROC: 8E0ZXY6 Isolation (ICD-10-PCS; principal; 2022-02-27)
DX: F20.9 Schizophrenia, unspecified (principal); Z91.14 Patient's other noncompliance with medication regimen; F17.200 Nicotine dependence, unspecified, uncomplicated; I10 Essential (primary) hypertension; R07.89 Other chest pain; Z20.822 Contact with and (suspected) exposure to COVID-19; Z79.82 Long term (current) use of aspirin; Z79.899 Other long term (current) drug therapy; Z88.8 Allergy status to other drugs, medicaments and biological substances; M54.50 Low back pain, unspecified

== ENCOUNTER 2022-03-18 17:00 | Inpatient (IN) | payer MEDICARE, MEDICAID ==
[~2022-03-18] VITALS: Ht 182.9 cm; Wt 120.3 kg
[~2022-03-18 17:00] MED LIST changes: +ARTIDRO OU; +ASPI81TA26 PO; +COLA100C5 PO; +CYCL-707 PO; +DIVA500T94 PO; +FERR1TAB8 PO; +FLUP25VL IM; +FLUP25VL INJ; +FLUP5TAB13 PO; +FURO20TA2 PO; +GABA-282 PO; +IBUP1TAB5 PO; +LISI10TA22 PO; +OXYB5TAB10 PO; +PROP10TA56 PO; +TRAZ-252 PO; +VALP1CAP2 PO; +VITA-158 PO; +patient note
[2022-03-18 17:44] LABS: HEMATOCRIT 39.9 % (42.0-52.0); HEMOGLOBIN 13.3 g/dl (13.5-17.5); MEAN CORPUSCULAR HEMOGLOBIN 30.1 pg (27.0-33.0); MEAN CORPUSCULAR HGB CONC 33.3 g/dl (32.0-36.5); MEAN CORPUSCULAR VOLUME 90.3 fl (80.0-96.0); PLATELET COUNT, AUTOMATED 230 10^3/uL (150-450); RED BLOOD COUNT 4.42 10^6/uL (4.30-6.10); WHITE BLOOD COUNT 7.1 10^3/uL (4.0-10.0)
[2022-03-18 18:31] LABS: ACETAMINOPHEN LEVEL < 2.0 UG/ML (10.0-30.0); ALBUMIN 3.8 GM/DL (3.2-5.2); ALT/SGPT 22 U/L (12-78); BILIRUBIN,DIRECT 0.1 MG/DL (0.0-0.2); BILIRUBIN,TOTAL 0.4 MG/DL (0.2-1.0); BLOOD UREA NITROGEN 17 MG/DL (7-18); CALCIUM LEVEL 9.4 MG/DL (8.5-10.1); CARBON DIOXIDE LEVEL 27 MEQ/L (21-32); CHLORIDE LEVEL 103 MEQ/L (98-107); CREATININE FOR GFR 0.74 MG/DL (0.70-1.30); ETHYL ALCOHOL (ETHANOL) < 0.003 % (0.000-0.010); GLOMERULAR FILTRATION RATE > 60.0 (>56); GLUCOSE, FASTING 93 MG/DL (70-100); POTASSIUM SERUM 3.9 MEQ/L (3.5-5.1); SODIUM LEVEL 136 MEQ/L (136-145); THYROID STIMULATING HORMONE 0.555 uIU/ML (0.358-3.740); TOTAL PROTEIN 7.6 GM/DL (6.4-8.2)
[2022-03-18 21:40] LABS: AMPHETAMINES LEVEL URINE NEGATIVE (NEGATIVE); BARBITURATES URINE NEGATIVE (NEGATIVE); BENZODIAZEPINES URINE NEGATIVE (NEGATIVE); CANNABINOIDS URINE NEGATIVE (NEGATIVE); COCAINE METABOLITE URINE NEGATIVE (NEGATIVE); METHADONE URINE NEGATIVE (NEGATIVE); OPIATES URINE NEGATIVE (NEGATIVE); PHENCYCLIDINE URINE NEGATIVE (NEGATIVE)
[2022-03-18 22:16] LABS: RSV AMPLIFICATION NEGATIVE (NEGATIVE)
[2022-03-19] MEDS ORDERED: HOME MED LIST COMPLETE! XX SCH (08:55)
[2022-03-19] MEDS: ASPIRIN 81 MG CHEW TABLET PO SCH (10:14)
[2022-03-19] MEDS: ASCORBIC ACID 500 MG TAB PO SCH (10:14)
[2022-03-19] MEDS: BENZTROPINE 1 MG TAB PO SCH ×2 (10:14→21:06)
[2022-03-19] MEDS: PROPRANOLOL 10 MG TAB PO SCH ×2 (10:15→21:07)
[2022-03-19] MEDS: GABAPENTIN 300 MG CAP PO SCH ×3 (10:15→21:07)
[2022-03-19] MEDS: FUROSEMIDE 20 MG TAB PO SCH (10:16)
[2022-03-19] MEDS: fluPHENAZine 5MG TABLET PO SCH ×3 (12:01→21:08)
[2022-03-19] MEDS: VALPROIC ACID 250MG CAP PO SCH ×3 (12:01→21:07)
[2022-03-19] MEDS: traZODone 50 MG TAB PO SCH ×2 (21:00→21:07)
[2022-03-19] MEDS: TAMSULOSIN 0.4 MG CAP PO SCH ×2 (21:00→21:07)
[2022-03-20] MEDS ORDERED: MOM 30ML SUSPENSION UDC PO ONE (07:55)
[2022-03-20] MEDS: GABAPENTIN 300 MG CAP PO SCH ×3 (08:28→21:43)
[2022-03-20] MEDS: ASPIRIN 81 MG CHEW TABLET PO SCH (08:28)
[2022-03-20] MEDS: BENZTROPINE 1 MG TAB PO SCH ×2 (08:28→21:43)
[2022-03-20] MEDS: FUROSEMIDE 20 MG TAB PO SCH (08:28)
[2022-03-20] MEDS: ASCORBIC ACID 500 MG TAB PO SCH (08:28)
[2022-03-20] MEDS: PROPRANOLOL 10 MG TAB PO SCH ×2 (08:28→21:44)
[2022-03-20] MEDS: fluPHENAZine 5MG TABLET PO SCH ×2 (10:30→21:43)
[2022-03-20] MEDS: VALPROIC ACID 250MG CAP PO SCH ×2 (10:31→21:43)
[2022-03-20] MEDS ORDERED: DOCUSATE SODIUM 100MG CAPSULE PO PRN (14:00)
[2022-03-20] MEDS: NICOTINE 21MG/24HR 1 EA TRANSDERMAL TD SCH (16:39)
[2022-03-20] MEDS: TAMSULOSIN 0.4 MG CAP PO SCH (21:43)
[2022-03-20] MEDS: traZODone 50 MG TAB PO SCH (21:43)
[2022-03-21 06:36] VITALS: BP 118/75
[2022-03-21] MEDS ORDERED: INFLUENZA QUADRIVALENT PF VACCINE 0.5ML SYRINGE IM.IMMUN ONE (09:00)
[2022-03-21] MEDS: NICOTINE 21MG/24HR 1 EA TRANSDERMAL TD SCH (09:00)
[2022-03-21] MEDS: ASCORBIC ACID 500 MG TAB PO SCH (09:21)
[2022-03-21] MEDS: FUROSEMIDE 20 MG TAB PO SCH (09:22)
[2022-03-21] MEDS: BENZTROPINE 1 MG TAB PO SCH ×2 (09:23→20:03)
[2022-03-21] MEDS: GABAPENTIN 300 MG CAP PO SCH ×3 (09:23→20:03)
[2022-03-21] MEDS: fluPHENAZine 5MG TABLET PO SCH ×2 (09:24→20:03)
[2022-03-21] MEDS: PROPRANOLOL 10 MG TAB PO SCH ×2 (09:24→20:04)
[2022-03-21] MEDS: ASPIRIN 81MG ENTERIC TABLET PO SCH (09:24)
[2022-03-21] MEDS: VALPROIC ACID 250MG CAP PO SCH ×2 (09:25→20:03)
[2022-03-21] MEDS: NICOTINE POLACRILEX 2 MG GUM PO PRN ×3 (14:00→23:40)
[2022-03-21] MEDS: CEPACOL LOZENGE PO PRN ×2 (14:31→19:24)
[2022-03-21 17:59] VITALS: BP 127/65
[2022-03-21] MEDS: traZODone 50 MG TAB PO SCH (20:03)
[2022-03-21] MEDS: TAMSULOSIN 0.4 MG CAP PO SCH (20:03)
[2022-03-21] MEDS: IBUPROFEN 400MG TAB PO PRN ×2 (22:15→23:41)
[2022-03-22] MEDS: LORazepam 1 MG TAB PO PRN ×2 (00:06→23:52)
[2022-03-22] MEDS: NICOTINE POLACRILEX 2 MG GUM PO PRN ×4 (05:15→23:46)
[2022-03-22] MEDS: CEPACOL LOZENGE PO PRN ×4 (05:15→23:46)
[2022-03-22 06:22] VITALS: BP 128/80
[2022-03-22 06:37] VITALS: BP 134/72
[2022-03-22] MEDS: GABAPENTIN 300 MG CAP PO SCH ×3 (08:57→20:28)
[2022-03-22] MEDS: ASPIRIN 81MG ENTERIC TABLET PO SCH (08:57)
[2022-03-22] MEDS: BENZTROPINE 1 MG TAB PO SCH ×2 (08:57→20:26)
[2022-03-22] MEDS: VALPROIC ACID 250MG CAP PO SCH ×2 (08:57→20:27)
[2022-03-22] MEDS: fluPHENAZine 5MG TABLET PO SCH ×2 (08:58→20:26)
[2022-03-22] MEDS: PROPRANOLOL 10 MG TAB PO SCH ×2 (08:58→20:26)
[2022-03-22] MEDS: FUROSEMIDE 20 MG TAB PO SCH (08:58)
[2022-03-22] MEDS: ASCORBIC ACID 500 MG TAB PO SCH (08:58)
[2022-03-22 15:20] VITALS: BP 136/76
[2022-03-22 18:04] VITALS: BP 152/81
[2022-03-22] MEDS: TAMSULOSIN 0.4 MG CAP PO SCH (20:27)
[2022-03-22] MEDS: diphenhydrAMINE 25MG CAP PO PRN (23:52)
[2022-03-23] MEDS: GABAPENTIN 300 MG CAP PO SCH ×3 (08:59→20:46)
[2022-03-23] MEDS: PROPRANOLOL 10 MG TAB PO SCH ×2 (09:02→20:46)
[2022-03-23] MEDS: FUROSEMIDE 20 MG TAB PO SCH (09:03)
[2022-03-23] MEDS: BENZTROPINE 1 MG TAB PO SCH ×2 (09:03→20:46)
[2022-03-23] MEDS: fluPHENAZine 5MG TABLET PO SCH ×2 (09:03→20:46)
[2022-03-23] MEDS: VALPROIC ACID 250MG CAP PO SCH ×2 (09:03→20:46)
[2022-03-23] MEDS: ASPIRIN 81MG ENTERIC TABLET PO SCH (09:03)
[2022-03-23] MEDS: ASCORBIC ACID 500 MG TAB PO SCH (09:12)
[2022-03-23] MEDS: NICOTINE POLACRILEX 2 MG GUM PO PRN ×2 (09:12→17:08)
[2022-03-23] MEDS: CEPACOL LOZENGE PO PRN ×4 (09:39→18:42)
[2022-03-23] MEDS: IBUPROFEN 400MG TAB PO PRN (13:05)
[2022-03-23 18:09] VITALS: BP 133/77
[2022-03-23] MEDS: TAMSULOSIN 0.4 MG CAP PO SCH (20:46)
[2022-03-23] MEDS: LORazepam 1 MG TAB PO PRN (20:50)
[2022-03-23] MEDS: diphenhydrAMINE 25MG CAP PO PRN (20:50)
[2022-03-24] MEDS: traZODone 50 MG TAB PO PRN (00:06)
[2022-03-24] MEDS: NICOTINE POLACRILEX 2 MG GUM PO PRN ×3 (00:18→14:25)
[2022-03-24 06:59] VITALS: BP 147/82
[2022-03-24] MEDS: ASCORBIC ACID 500 MG TAB PO SCH (08:31)
[2022-03-24] MEDS: fluPHENAZine 5MG TABLET PO SCH ×2 (08:33→22:42)
[2022-03-24] MEDS: FUROSEMIDE 20 MG TAB PO SCH (08:33)
[2022-03-24] MEDS: GABAPENTIN 300 MG CAP PO SCH ×3 (08:33→22:42)
[2022-03-24] MEDS: BENZTROPINE 1 MG TAB PO SCH ×2 (08:33→22:42)
[2022-03-24] MEDS: ASPIRIN 81MG ENTERIC TABLET PO SCH (08:34)
[2022-03-24] MEDS: PROPRANOLOL 10 MG TAB PO SCH ×2 (08:34→22:43)
[2022-03-24] MEDS: CEPACOL LOZENGE PO PRN ×3 (08:34→18:44)
[2022-03-24] MEDS: VALPROIC ACID 250MG CAP PO SCH ×2 (08:34→22:42)
[2022-03-24 18:00] VITALS: BP 129/75
[2022-03-24] MEDS: MOM 30ML SUSPENSION UDC PO PRN (21:56)
[2022-03-24] MEDS: MAALOX 30 ML SUSP *UDC PO PRN (21:56)
[2022-03-24] MEDS: TAMSULOSIN 0.4 MG CAP PO SCH (22:42)
[2022-03-25] MEDS: NICOTINE POLACRILEX 2 MG GUM PO PRN ×3 (00:12→19:46)
[2022-03-25] MEDS: VALPROIC ACID 250MG CAP PO SCH ×2 (10:11→21:51)
[2022-03-25] MEDS: GABAPENTIN 300 MG CAP PO SCH ×3 (10:11→21:52)
[2022-03-25] MEDS: PROPRANOLOL 10 MG TAB PO SCH ×2 (10:12→21:53)
[2022-03-25] MEDS: BENZTROPINE 1 MG TAB PO SCH ×2 (10:12→21:52)
[2022-03-25] MEDS: fluPHENAZine 5MG TABLET PO SCH ×2 (10:12→21:52)
[2022-03-25] MEDS: FUROSEMIDE 20 MG TAB PO SCH (10:12)
[2022-03-25] MEDS: ASCORBIC ACID 500 MG TAB PO SCH (10:12)
[2022-03-25] MEDS: ASPIRIN 81MG ENTERIC TABLET PO SCH (10:12)
[2022-03-25] MEDS: CEPACOL LOZENGE PO PRN ×3 (11:30→19:46)
[2022-03-25 16:16] VITALS: BP 140/82
[2022-03-25] MEDS: TAMSULOSIN 0.4 MG CAP PO SCH (21:52)
[2022-03-25] MEDS: MOM 30ML SUSPENSION UDC PO PRN (21:56)
[2022-03-25] MEDS: MAALOX 30 ML SUSP *UDC PO PRN (21:56)
[2022-03-26] MEDS: NICOTINE POLACRILEX 2 MG GUM PO PRN ×3 (02:16→20:30)
[2022-03-26] MEDS: CEPACOL LOZENGE PO PRN ×4 (02:19→23:41)
[2022-03-26] MEDS: LORazepam 1 MG TAB PO PRN ×2 (04:36→23:38)
[2022-03-26] MEDS: diphenhydrAMINE 25MG CAP PO PRN ×2 (04:36→23:38)
[2022-03-26] MEDS: GABAPENTIN 300 MG CAP PO SCH ×3 (09:06→22:00)
[2022-03-26] MEDS: ASCORBIC ACID 500 MG TAB PO SCH (09:07)
[2022-03-26] MEDS: ASPIRIN 81MG ENTERIC TABLET PO SCH (09:07)
[2022-03-26] MEDS: fluPHENAZine 5MG TABLET PO SCH ×2 (09:07→22:00)
[2022-03-26] MEDS: BENZTROPINE 1 MG TAB PO SCH ×2 (09:07→22:00)
[2022-03-26] MEDS: FUROSEMIDE 20 MG TAB PO SCH (09:07)
[2022-03-26] MEDS: VALPROIC ACID 250MG CAP PO SCH ×2 (09:08→21:59)
[2022-03-26] MEDS: PROPRANOLOL 10 MG TAB PO SCH ×2 (09:09→22:01)
[2022-03-26 16:01] VITALS: BP 141/76
[2022-03-26 16:41] VITALS: BP 141/76
[2022-03-26] MEDS: TAMSULOSIN 0.4 MG CAP PO SCH (22:00)
[2022-03-27] MEDS: traZODone 50 MG TAB PO PRN (01:08)
[2022-03-27] MEDS: NICOTINE POLACRILEX 2 MG GUM PO PRN ×2 (01:08→07:08)
[2022-03-27] MEDS: ASPIRIN 81MG ENTERIC TABLET PO SCH (08:54)
[2022-03-27] MEDS: VALPROIC ACID 250MG CAP PO SCH ×2 (08:54→21:43)
[2022-03-27] MEDS: ASCORBIC ACID 500 MG TAB PO SCH (08:55)
[2022-03-27] MEDS: BENZTROPINE 1 MG TAB PO SCH ×2 (08:55→21:42)
[2022-03-27] MEDS: FUROSEMIDE 20 MG TAB PO SCH (08:55)
[2022-03-27] MEDS: GABAPENTIN 300 MG CAP PO SCH ×3 (08:56→21:43)
[2022-03-27] MEDS: fluPHENAZine 5MG TABLET PO SCH ×2 (08:56→21:42)
[2022-03-27] MEDS: PROPRANOLOL 10 MG TAB PO SCH ×2 (08:58→21:42)
[2022-03-27] MEDS: NICOTINE 21MG/24HR 1 EA TRANSDERMAL TD SCH (15:17)
[2022-03-27 16:15] VITALS: BP 145/68
[2022-03-27] MEDS: CEPACOL LOZENGE PO PRN (16:39)
[2022-03-27] MEDS: TAMSULOSIN 0.4 MG CAP PO SCH (21:43)
[2022-03-27] MEDS: diphenhydrAMINE 25MG CAP PO PRN (22:10)
[2022-03-27] MEDS: LORazepam 1 MG TAB PO PRN (22:11)
[2022-03-27] MEDS: MOM 30ML SUSPENSION UDC PO PRN (22:12)
[2022-03-27] MEDS: MAALOX 30 ML SUSP *UDC PO PRN (22:12)
[2022-03-28] MEDS ORDERED: fluPHENAZine DECAN 25MG/ML 5ML VIAL (J2680) IM SCH (09:00)
[2022-03-28] MEDS: ASCORBIC ACID 500 MG TAB PO SCH (09:03)
[2022-03-28] MEDS: VALPROIC ACID 250MG CAP PO SCH ×2 (09:05→21:00)
[2022-03-28] MEDS: GABAPENTIN 300 MG CAP PO SCH ×3 (09:06→21:05)
[2022-03-28] MEDS: fluPHENAZine 5MG TABLET PO SCH ×2 (09:06→21:00)
[2022-03-28] MEDS: ASPIRIN 81MG ENTERIC TABLET PO SCH (09:06)
[2022-03-28] MEDS: BENZTROPINE 1 MG TAB PO SCH ×2 (09:06→21:03)
[2022-03-28] MEDS: FUROSEMIDE 20 MG TAB PO SCH (09:06)
[2022-03-28] MEDS: PROPRANOLOL 10 MG TAB PO SCH ×2 (09:07→21:04)
[2022-03-28] MEDS: NICOTINE 21MG/24HR 1 EA TRANSDERMAL TD SCH (09:08)
[2022-03-28] MEDS: CEPACOL LOZENGE PO PRN (11:41)
[2022-03-28] MEDS: diphenhydrAMINE 25MG CAP PO PRN (14:44)
[2022-03-28] MEDS: LORazepam 1 MG TAB PO PRN (14:47)
[2022-03-28] MEDS: MAALOX 30 ML SUSP *UDC PO PRN (15:06)
[2022-03-28] MEDS: TAMSULOSIN 0.4 MG CAP PO SCH (21:03)
[2022-03-29] MEDS: VALPROIC ACID 250MG CAP PO SCH ×2 (09:00→21:11)
[2022-03-29] MEDS: fluPHENAZine 5MG TABLET PO SCH ×2 (09:00→22:19)
[2022-03-29] MEDS: NICOTINE 21MG/24HR 1 EA TRANSDERMAL TD SCH (09:27)
[2022-03-29] MEDS: PROPRANOLOL 10 MG TAB PO SCH ×2 (09:30→21:12)
[2022-03-29] MEDS: FUROSEMIDE 20 MG TAB PO SCH (09:31)
[2022-03-29] MEDS: GABAPENTIN 300 MG CAP PO SCH ×3 (09:31→21:11)
[2022-03-29] MEDS: BENZTROPINE 1 MG TAB PO SCH ×2 (09:31→21:20)
[2022-03-29] MEDS: ASPIRIN 81MG ENTERIC TABLET PO SCH (09:31)
[2022-03-29] MEDS: ASCORBIC ACID 500 MG TAB PO SCH (09:31)
[2022-03-29] MEDS: CEPACOL LOZENGE PO PRN (15:28)
[2022-03-29 16:04] VITALS: BP 143/77
[2022-03-29] MEDS: TAMSULOSIN 0.4 MG CAP PO SCH (21:11)
[2022-03-30] MEDS: NICOTINE 21MG/24HR 1 EA TRANSDERMAL TD SCH ×2 (09:00→10:04)
[2022-03-30] MEDS: ASPIRIN 81MG ENTERIC TABLET PO SCH (09:57)
[2022-03-30] MEDS: FUROSEMIDE 20 MG TAB PO SCH (09:57)
[2022-03-30] MEDS: PROPRANOLOL 10 MG TAB PO SCH ×2 (09:58→21:19)
[2022-03-30] MEDS: ASCORBIC ACID 500 MG TAB PO SCH (09:58)
[2022-03-30] MEDS: VALPROIC ACID 250MG CAP PO SCH ×2 (09:58→21:14)
[2022-03-30] MEDS: fluPHENAZine 5MG TABLET PO SCH ×2 (09:58→21:14)
[2022-03-30] MEDS: BENZTROPINE 1 MG TAB PO SCH ×2 (09:59→21:15)
[2022-03-30] MEDS: GABAPENTIN 300 MG CAP PO SCH ×3 (09:59→21:15)
[2022-03-30] MEDS: TAMSULOSIN 0.4 MG CAP PO SCH (21:15)
[2022-03-30] MEDS: CEPACOL LOZENGE PO PRN (21:22)
[2022-03-31] MEDS: MOM 30ML SUSPENSION UDC PO PRN ×2 (01:44→22:15)
[2022-03-31] MEDS: MAALOX 30 ML SUSP *UDC PO PRN ×2 (01:44→22:15)
[2022-03-31] MEDS: diphenhydrAMINE 25MG CAP PO PRN ×2 (01:49→23:54)
[2022-03-31] MEDS: LORazepam 1 MG TAB PO PRN ×2 (01:49→23:55)
[2022-03-31] MEDS: ASCORBIC ACID 500 MG TAB PO SCH (08:32)
[2022-03-31] MEDS: PROPRANOLOL 10 MG TAB PO SCH ×2 (08:33→20:19)
[2022-03-31] MEDS: fluPHENAZine 5MG TABLET PO SCH ×2 (08:33→20:19)
[2022-03-31] MEDS: ASPIRIN 81MG ENTERIC TABLET PO SCH (08:33)
[2022-03-31] MEDS: FUROSEMIDE 20 MG TAB PO SCH (08:33)
[2022-03-31] MEDS: GABAPENTIN 300 MG CAP PO SCH ×3 (08:33→20:19)
[2022-03-31] MEDS: VALPROIC ACID 250MG CAP PO SCH ×2 (08:33→20:20)
[2022-03-31] MEDS: BENZTROPINE 1 MG TAB PO SCH ×2 (08:34→20:19)
[2022-03-31] MEDS: NICOTINE 21MG/24HR 1 EA TRANSDERMAL TD SCH (08:34)
[2022-03-31 16:05] VITALS: BP 141/78
[2022-03-31] MEDS: TAMSULOSIN 0.4 MG CAP PO SCH (20:20)
[2022-03-31] MEDS: CEPACOL LOZENGE PO PRN (22:21)
[2022-04-01] MEDS: traZODone 50 MG TAB PO PRN (01:26)
[2022-04-01 06:14] VITALS: BP 160/100
[2022-04-01] MEDS: BENZTROPINE 1 MG TAB PO SCH (08:25)
[2022-04-01] MEDS: ASPIRIN 81MG ENTERIC TABLET PO SCH (08:25)
[2022-04-01] MEDS: VALPROIC ACID 250MG CAP PO SCH (08:25)
[2022-04-01 08:26] VITALS: BP 138/84
[2022-04-01] MEDS: fluPHENAZine 5MG TABLET PO SCH (08:26)
[2022-04-01] MEDS: PROPRANOLOL 10 MG TAB PO SCH (08:26)
[2022-04-01] MEDS: ASCORBIC ACID 500 MG TAB PO SCH (08:26)
[2022-04-01] MEDS: GABAPENTIN 300 MG CAP PO SCH (08:26)
[2022-04-01] MEDS: FUROSEMIDE 20 MG TAB PO SCH (08:27)
[2022-04-01] MEDS: NICOTINE 21MG/24HR 1 EA TRANSDERMAL TD SCH (08:32)
[2022-04-01] MEDS: MAALOX 30 ML SUSP *UDC PO PRN (08:57)
[2022-04-01] MEDS ORDERED: TRAZ-252 PO (09:25)
[2022-04-01] MEDS ORDERED: VALP1CAP2 PO (09:25)
[2022-04-01] MEDS ORDERED: GABA-282 PO (09:25)
[2022-04-01] MEDS ORDERED: ASCO50TA PO (09:25)
[2022-04-01] MEDS ORDERED: PROP10TA56 PO (09:25)
[2022-04-01] MEDS ORDERED: FLOM0.4C39 PO (09:25)
[2022-04-01] MEDS ORDERED: ASPI81TAEC PO (09:25)
[2022-04-01] MEDS ORDERED: BENZ-52 PO (09:25)
[2022-04-01] MEDS ORDERED: FLUP5TAB13 PO (09:25)
[2022-04-01] MEDS ORDERED: FLUP25VL IM (09:25)
[2022-04-01] MEDS ORDERED: FURO20TA2 PO (09:25)
[2022-04-01] MEDS ORDERED: COLA100C5 PO (09:25)
[2022-04-01] MEDS ORDERED: IBUP-1114 PO (09:25)
[2022-04-01] MEDS ORDERED: LISI10TA22 PO (09:25)
== END 2022-04-01 12:38 | disposition home or self-care (01) | DRG 885 ==
LOC: M ED 17:00 → M ED INP 03-20 13:56 → M PSY 03-20 15:36
PROVIDERS: ADMIT Student in an Organized Health Care Education/Training Program; ATTEND Psychiatry & Neurology Psychiatry
DX: F20.9 Schizophrenia, unspecified (principal); Z79.899 Other long term (current) drug therapy; Z79.82 Long term (current) use of aspirin; Z88.8 Allergy status to other drugs, medicaments and biological substances; N40.0 Benign prostatic hyperplasia without lower urinary tract symptoms; I10 Essential (primary) hypertension

== ENCOUNTER 2022-04-13 17:15 | Emergency (ER) | payer MEDICARE, MEDICAID ==
[~2022-04-13] VITALS: Ht 182.9 cm; Wt 113.6 kg
[~2022-04-13 17:15] MED LIST changes: +ASCO50TA PO; +ASPI81TAEC PO; +IBUP-1114 PO
[2022-04-13 17:29] VITALS: BP 159/97
[2022-04-13] MEDS ORDERED: PANT40TA29 (17:34)
[2022-04-13 18:16] LABS: HEMATOCRIT 43.7 % (42.0-52.0); HEMOGLOBIN 13.9 g/dl (13.5-17.5); MEAN CORPUSCULAR HEMOGLOBIN 29.7 pg (27.0-33.0); MEAN CORPUSCULAR HGB CONC 31.8 g/dl (32.0-36.5); MEAN CORPUSCULAR VOLUME 93.4 fl (80.0-96.0); PLATELET COUNT, AUTOMATED 153 10^3/uL (150-450); RED BLOOD COUNT 4.68 10^6/uL (4.30-6.10); WHITE BLOOD COUNT 7.7 10^3/uL (4.0-10.0)
[2022-04-13 18:49] LABS: RSV AMPLIFICATION NEGATIVE (NEGATIVE)
[2022-04-13 19:28] LABS: ACETAMINOPHEN LEVEL < 2.0 UG/ML (10.0-30.0); ALBUMIN 3.5 GM/DL (3.2-5.2); ALT/SGPT 31 U/L (12-78); BILIRUBIN,DIRECT < 0.1 MG/DL (0.0-0.2); BILIRUBIN,TOTAL 0.2 MG/DL (0.2-1.0); BLOOD UREA NITROGEN 14 MG/DL (7-18); CARBON DIOXIDE LEVEL 34 MEQ/L (21-32); CHLORIDE LEVEL 102 MEQ/L (98-107); ETHYL ALCOHOL (ETHANOL) < 0.003 % (0.000-0.010); GLOMERULAR FILTRATION RATE > 60.0 (>56); GLUCOSE, FASTING 89 MG/DL (70-100); POTASSIUM SERUM 4.5 MEQ/L (3.5-5.1); SALICYLATE LEVEL 1.8 MG/DL (5.0-30.0); SODIUM LEVEL 139 MEQ/L (136-145); THYROID STIMULATING HORMONE 0.481 uIU/ML (0.358-3.740); TOTAL PROTEIN 6.8 GM/DL (6.4-8.2)
== END 2022-04-13 21:18 | disposition home or self-care (01) ==
LOC: M ED 17:15
DX: F43.0 Acute stress reaction (principal); I10 Essential (primary) hypertension; N40.0 Benign prostatic hyperplasia without lower urinary tract symptoms; K21.9 Gastro-esophageal reflux disease without esophagitis; Z88.8 Allergy status to other drugs, medicaments and biological substances; Z79.82 Long term (current) use of aspirin; Z79.899 Other long term (current) drug therapy

== ENCOUNTER 2022-05-12 14:07 | Inpatient (IN) | payer MEDICARE, MEDICAID ==
[2022-05-12] MEDS: FUROSEMIDE 20 MG TAB PO SCH (09:00)
[~2022-05-12 14:07] MED LIST changes: +PANT40TA29
[2022-05-12 15:44] LABS: HEMATOCRIT 40.2 % (42.0-52.0); HEMOGLOBIN 12.9 g/dl (13.5-17.5); MEAN CORPUSCULAR HEMOGLOBIN 29.6 pg (27.0-33.0); MEAN CORPUSCULAR HGB CONC 32.1 g/dl (32.0-36.5); MEAN CORPUSCULAR VOLUME 92.2 fl (80.0-96.0); PLATELET COUNT, AUTOMATED 195 10^3/uL (150-450); RED BLOOD COUNT 4.36 10^6/uL (4.30-6.10); WHITE BLOOD COUNT 8.5 10^3/uL (4.0-10.0)
[2022-05-12] MEDS ORDERED: FURO20TA2 PO (16:00)
[2022-05-12] MEDS ORDERED: ASCO500T PO (16:00)
[2022-05-12] MEDS ORDERED: FLUP5TAB13 PO (16:00)
[2022-05-12] MEDS ORDERED: ASPI81TA27 PO (16:00)
[2022-05-12] MEDS ORDERED: FLOM0.4C39 PO (16:00)
[2022-05-12] MEDS ORDERED: BENZ-52 PO (16:00)
[2022-05-12] MEDS ORDERED: FLUP25VL IM (16:00)
[2022-05-12] MEDS ORDERED: DOCU100C17 PO (16:00)
[2022-05-12] MEDS ORDERED: PROP10TA56 PO (16:00)
[2022-05-12] MEDS ORDERED: VALP1CAP2 PO (16:00)
[2022-05-12] MEDS ORDERED: LISI10TA22 PO (16:00)
[2022-05-12] MEDS ORDERED: MED REC COMMENT (16:00)
[2022-05-12] MEDS ORDERED: GABA-282 PO (16:00)
[2022-05-12] MEDS ORDERED: HOME MED LIST COMPLETE! XX SCH (16:05)
[2022-05-12 16:06] LABS: AMPHETAMINES LEVEL URINE NEGATIVE (NEGATIVE); BARBITURATES URINE NEGATIVE (NEGATIVE); BENZODIAZEPINES URINE NEGATIVE (NEGATIVE); CANNABINOIDS URINE NEGATIVE (NEGATIVE); COCAINE METABOLITE URINE NEGATIVE (NEGATIVE); METHADONE URINE NEGATIVE (NEGATIVE); OPIATES URINE NEGATIVE (NEGATIVE); PHENCYCLIDINE URINE NEGATIVE (NEGATIVE)
[2022-05-12 16:21] LABS: RSV AMPLIFICATION NEGATIVE (NEGATIVE)
[2022-05-12 16:23] LABS: ACETAMINOPHEN LEVEL < 2.0 UG/ML (10.0-20.0); ALBUMIN 3.8 G/DL (3.2-5.2); ALKALINE PHOSPHATASE 62 U/L (46-116); ALT/SGPT 18 U/L (7.0-40); AST/SGOT 21 U/L (<34); BILIRUBIN,DIRECT 0.1 MG/DL (<0.4); BILIRUBIN,TOTAL 0.3 MG/DL (0.3-1.2); BLOOD UREA NITROGEN 9 MG/DL (9-23); CALCIUM LEVEL 9.2 MG/DL (8.5-10.1); CARBON DIOXIDE LEVEL 27 MMOL/L (20-31); CHLORIDE LEVEL 98 MMOL/L (98-107); CREATININE FOR GFR 0.65 MG/DL (0.70-1.30); ETHYL ALCOHOL (ETHANOL) 0.004 % (0.000-0.010); GLOMERULAR FILTRATION RATE > 60.0 (>56); GLUCOSE, FASTING 103 MG/DL (60-100); POTASSIUM SERUM 4.4 MMOL/L (3.5-5.1); SALICYLATE LEVEL < 3.0 MG/DL (<30); SODIUM LEVEL 134 MMOL/L (136-145); TOTAL PROTEIN 6.9 G/DL (5.7-8.2); VALPROIC ACID (DEPAKOTE) 85.5 UG/ML (50.0-100.0)
[2022-05-12 16:26] LABS: THYROID STIMULATING HORMONE 0.794 uIU/ML (0.55-4.78)
[2022-05-12] MEDS ORDERED: LORazepam 2 MG TAB PO STA (17:44)
[2022-05-12] MEDS ORDERED: OLANZapine ORAL DISINTEGRATING TAB 5MG PO ONE (17:45)
[2022-05-12] MEDS: VALPROIC ACID 250MG CAP PO SCH (20:09)
[2022-05-12] MEDS: GABAPENTIN 300 MG CAP PO SCH (20:10)
[2022-05-12] MEDS: BENZTROPINE 1 MG TAB PO SCH ×2 (20:10→21:00)
[2022-05-12] MEDS: DOCUSATE SODIUM 100MG CAPSULE PO SCH ×2 (20:10→21:00)
[2022-05-12] MEDS: fluPHENAZine 5MG TABLET PO SCH (20:11)
[2022-05-12] MEDS: PROPRANOLOL 10 MG TAB PO SCH (20:11)
[2022-05-12] MEDS: TAMSULOSIN 0.4 MG CAP PO SCH ×2 (20:13→21:00)
[2022-05-12] MEDS ORDERED: DIVALPROEX 250 MG TAB PO SCH (21:00)
[2022-05-12] MEDS ORDERED: DIVALPROEX 500 MG TAB PO SCH (21:00)
[2022-05-13] MEDS ORDERED: NICOTINE 14 MG/24 HR TRANSDERMAL TD ONE (08:30)
[2022-05-13] MEDS: ASPIRIN 81MG ENTERIC TABLET PO SCH ×2 (09:00→17:39)
[2022-05-13] MEDS: GABAPENTIN 300 MG CAP PO SCH ×3 (09:00→22:53)
[2022-05-13] MEDS: FUROSEMIDE 20 MG TAB PO SCH ×2 (09:00→17:39)
[2022-05-13] MEDS: BENZTROPINE 1 MG TAB PO SCH ×2 (09:00→22:51)
[2022-05-13] MEDS ORDERED: ASCORBIC ACID 500 MG TAB PO SCH (09:00)
[2022-05-13] MEDS ORDERED: FUROSEMIDE 20MG/2ML VIAL (J1940) IV SCH (09:00)
[2022-05-13] MEDS: PROPRANOLOL 10 MG TAB PO SCH ×2 (09:00→22:52)
[2022-05-13] MEDS: fluPHENAZine 5MG TABLET PO SCH ×2 (09:00→22:53)
[2022-05-13] MEDS: DOCUSATE SODIUM 100MG CAPSULE PO SCH ×2 (09:00→22:51)
[2022-05-13] MEDS: VALPROIC ACID 250MG CAP PO SCH ×2 (09:00→22:52)
[2022-05-13] MEDS: TAMSULOSIN 0.4 MG CAP PO SCH (22:52)
[2022-05-14] MEDS ORDERED: fluPHENAZine DECAN 25MG/ML 5ML VIAL (J2680) IM SCH (00:10)
[2022-05-14] MEDS: ASPIRIN 81MG ENTERIC TABLET PO SCH (08:55)
[2022-05-14] MEDS: PROPRANOLOL 10 MG TAB PO SCH ×2 (08:56→21:07)
[2022-05-14] MEDS ORDERED: LIDOCAINE 5% (LIDODERM) PATCH TD PRN (09:00)
[2022-05-14] MEDS: FUROSEMIDE 20 MG TAB PO SCH (09:00)
[2022-05-14] MEDS: ASCORBIC ACID 500 MG TAB PO SCH (09:00)
[2022-05-14] MEDS: VALPROIC ACID 250MG CAP PO SCH ×2 (09:00→20:58)
[2022-05-14] MEDS: DOCUSATE SODIUM 100MG CAPSULE PO SCH ×2 (09:00→20:58)
[2022-05-14] MEDS: fluPHENAZine 5MG TABLET PO SCH ×2 (09:00→20:59)
[2022-05-14] MEDS: GABAPENTIN 300 MG CAP PO SCH ×3 (09:00→20:59)
[2022-05-14] MEDS: BENZTROPINE 1 MG TAB PO SCH ×2 (09:00→20:58)
[2022-05-14] MEDS: ACETAMINOPHEN TAB 650MG DOSE (2X325MG) PO PRN (12:38)
[2022-05-14] MEDS: NICOTINE 14 MG/24 HR TRANSDERMAL TD PRN (12:38)
[2022-05-14 15:40] LABS: APPEARANCE, URINE MANUAL CLEAR (CLEAR); COLOR, URINE MANUAL COLORLESS (YELLOW)
[2022-05-14 15:41] LABS: BILIRUBIN, URINE MANUAL NEGATIVE (NEGATIVE); BLOOD URINE MANUAL NEGATIVE (NEGATIVE); GLUCOSE, URINE (UA) MANUAL NEGATIVE (NEGATIVE); KETONE, URINE MANUAL NEGATIVE (NEGATIVE); LEUKOCYTE ESTERASE, URINE MAN NEGATIVE (NEGATIVE); NITRITE, URINE MANUAL NEGATIVE (NEGATIVE); PROTEIN, URINE MANUAL NEGATIVE (NEGATIVE); SPECIFIC GRAVITY,URINE MANUAL 1.005 (1.002-1.035); UROBILINOGEN, URINE MANUAL NORMAL (NORMAL)
[2022-05-14] MEDS: IBUPROFEN 400MG TAB PO PRN (16:38)
[2022-05-14 18:46] VITALS: BP 148/90
[2022-05-14] MEDS: TAMSULOSIN 0.4 MG CAP PO SCH (20:59)
[2022-05-14] MEDS: LORazepam 2 MG TAB PO PRN (21:07)
[2022-05-14] MEDS: diphenhydrAMINE 25MG CAP PO PRN (21:07)
[2022-05-14] MEDS: traZODone 50 MG TAB PO PRN (22:08)
[2022-05-14 22:18] VITALS: BP 156/98
[2022-05-15] MEDS: ASPIRIN 81MG ENTERIC TABLET PO SCH (07:55)
[2022-05-15] MEDS: PROPRANOLOL 10 MG TAB PO SCH ×2 (07:58→21:19)
[2022-05-15] MEDS: ASCORBIC ACID 500 MG TAB PO SCH (09:00)
[2022-05-15] MEDS: fluPHENAZine 5MG TABLET PO SCH ×2 (09:00→21:00)
[2022-05-15] MEDS: DOCUSATE SODIUM 100MG CAPSULE PO SCH ×2 (09:00→21:00)
[2022-05-15] MEDS: GABAPENTIN 300 MG CAP PO SCH ×3 (09:00→21:00)
[2022-05-15] MEDS: BENZTROPINE 1 MG TAB PO SCH ×2 (09:00→21:18)
[2022-05-15] MEDS: FUROSEMIDE 20 MG TAB PO SCH (09:00)
[2022-05-15] MEDS: fluPHENAZine DECAN 25MG/ML 5ML VIAL (J2680) IM SCH ×2 (09:00→10:45)
[2022-05-15] MEDS: VALPROIC ACID 250MG CAP PO SCH ×2 (09:00→21:00)
[2022-05-15 09:29] LABS: CHOLESTEROL RISK RATIO 3.05 (<5); HDL CHOLESTEROL 49.5 MG/DL (>40); LDL CHOLESTEROL 84.5 MG/DL (<100)
[2022-05-15] MEDS: NICOTINE POLACRILEX 2 MG GUM PO PRN ×3 (10:31→22:31)
[2022-05-15] MEDS: IBUPROFEN 400MG TAB PO PRN (16:20)
[2022-05-15] MEDS: TAMSULOSIN 0.4 MG CAP PO SCH (21:00)
[2022-05-16] MEDS: traZODone 50 MG TAB PO PRN (00:06)
[2022-05-16] MEDS: NICOTINE POLACRILEX 2 MG GUM PO PRN ×3 (05:26→20:23)
[2022-05-16 06:33] VITALS: BP 160/100
[2022-05-16] MEDS: ASPIRIN 81MG ENTERIC TABLET PO SCH (08:50)
[2022-05-16] MEDS: PROPRANOLOL 10 MG TAB PO SCH ×2 (08:51→22:02)
[2022-05-16] MEDS: BENZTROPINE 1 MG TAB PO SCH ×2 (08:52→22:03)
[2022-05-16] MEDS: DOCUSATE SODIUM 100MG CAPSULE PO SCH ×2 (08:54→21:00)
[2022-05-16] MEDS: VALPROIC ACID 250MG CAP PO SCH ×3 (08:54→21:00)
[2022-05-16] MEDS: fluPHENAZine 5MG TABLET PO SCH ×3 (08:55→21:00)
[2022-05-16] MEDS: FUROSEMIDE 20 MG TAB PO SCH ×2 (08:55→12:23)
[2022-05-16] MEDS: GABAPENTIN 300 MG CAP PO SCH ×4 (08:55→21:00)
[2022-05-16] MEDS: ASCORBIC ACID 500 MG TAB PO SCH ×2 (08:55→12:23)
[2022-05-16] MEDS: IBUPROFEN 400MG TAB PO PRN (16:34)
[2022-05-16] MEDS: TAMSULOSIN 0.4 MG CAP PO SCH (21:00)
[2022-05-17] MEDS: IBUPROFEN 400MG TAB PO PRN ×2 (01:13→18:39)
[2022-05-17] MEDS: traZODone 50 MG TAB PO PRN (01:14)
[2022-05-17] MEDS: NICOTINE POLACRILEX 2 MG GUM PO PRN ×3 (05:26→18:02)
[2022-05-17 05:34] VITALS: BP_SYST 128; BP_SYST 142; BP_DIAS 100; BP_DIAS 78
[2022-05-17] MEDS: ASCORBIC ACID 500 MG TAB PO SCH (07:28)
[2022-05-17] MEDS: PROPRANOLOL 10 MG TAB PO SCH ×2 (07:28→20:34)
[2022-05-17] MEDS: ASPIRIN 81MG ENTERIC TABLET PO SCH (07:28)
[2022-05-17] MEDS: BENZTROPINE 1 MG TAB PO SCH ×2 (07:28→20:34)
[2022-05-17] MEDS: fluPHENAZine 5MG TABLET PO SCH ×2 (07:31→20:32)
[2022-05-17] MEDS: GABAPENTIN 300 MG CAP PO SCH ×3 (07:31→20:32)
[2022-05-17] MEDS: FUROSEMIDE 20 MG TAB PO SCH (07:31)
[2022-05-17] MEDS: DOCUSATE SODIUM 100MG CAPSULE PO SCH ×2 (07:32→20:32)
[2022-05-17] MEDS: VALPROIC ACID 250MG CAP PO SCH ×2 (07:32→20:32)
[2022-05-17 18:16] VITALS: BP 151/92
[2022-05-17] MEDS: TAMSULOSIN 0.4 MG CAP PO SCH (20:32)
[2022-05-17] MEDS: ACETAMINOPHEN TAB 650MG DOSE (2X325MG) PO PRN (21:15)
[2022-05-18] MEDS: NICOTINE POLACRILEX 2 MG GUM PO PRN ×2 (00:19→18:12)
[2022-05-18] MEDS: traZODone 50 MG TAB PO PRN (01:16)
[2022-05-18 06:18] VITALS: BP 151/85
[2022-05-18] MEDS: BENZTROPINE 1 MG TAB PO SCH ×2 (10:05→20:15)
[2022-05-18] MEDS: ASPIRIN 81MG ENTERIC TABLET PO SCH (10:05)
[2022-05-18] MEDS: ASCORBIC ACID 500 MG TAB PO SCH (10:05)
[2022-05-18] MEDS: PROPRANOLOL 10 MG TAB PO SCH ×2 (10:06→20:16)
[2022-05-18] MEDS: fluPHENAZine 5MG TABLET PO SCH ×2 (10:11→20:18)
[2022-05-18] MEDS: FUROSEMIDE 20 MG TAB PO SCH (10:12)
[2022-05-18] MEDS: DOCUSATE SODIUM 100MG CAPSULE PO SCH ×2 (10:12→20:17)
[2022-05-18] MEDS: VALPROIC ACID 250MG CAP PO SCH ×2 (10:12→20:17)
[2022-05-18] MEDS: GABAPENTIN 300 MG CAP PO SCH ×3 (10:12→20:18)
[2022-05-18] MEDS: IBUPROFEN 400MG TAB PO PRN (14:05)
[2022-05-18 18:24] VITALS: BP 156/91
[2022-05-18] MEDS: TAMSULOSIN 0.4 MG CAP PO SCH (20:18)
[2022-05-18 22:05] VITALS: BP 158/98
[2022-05-19] MEDS: NICOTINE POLACRILEX 2 MG GUM PO PRN ×3 (02:05→19:41)
[2022-05-19 06:25] VITALS: BP 158/88
[2022-05-19] MEDS: DOCUSATE SODIUM 100MG CAPSULE PO SCH ×2 (09:00→20:39)
[2022-05-19] MEDS: fluPHENAZine 5MG TABLET PO SCH ×2 (09:00→20:39)
[2022-05-19] MEDS: VALPROIC ACID 250MG CAP PO SCH ×2 (09:00→20:39)
[2022-05-19] MEDS: GABAPENTIN 300 MG CAP PO SCH ×3 (09:00→20:39)
[2022-05-19] MEDS: FUROSEMIDE 20 MG TAB PO SCH (09:00)
[2022-05-19] MEDS: ASPIRIN 81MG ENTERIC TABLET PO SCH (09:44)
[2022-05-19] MEDS: BENZTROPINE 1 MG TAB PO SCH ×2 (09:45→20:30)
[2022-05-19] MEDS: ASCORBIC ACID 500 MG TAB PO SCH (09:45)
[2022-05-19] MEDS: PROPRANOLOL 10 MG TAB PO SCH ×2 (09:46→20:30)
[2022-05-19] MEDS: IBUPROFEN 400MG TAB PO PRN (14:05)
[2022-05-19] MEDS: CYCLOBENZAPRINE 5MG TABLET PO PRN (15:39)
[2022-05-19 18:00] VITALS: BP 148/96
[2022-05-19] MEDS: TAMSULOSIN 0.4 MG CAP PO SCH (20:39)
[2022-05-20] MEDS: BENZTROPINE 1 MG TAB PO SCH ×2 (09:00→21:00)
[2022-05-20] MEDS: ASPIRIN 81MG ENTERIC TABLET PO SCH (09:00)
[2022-05-20] MEDS: FUROSEMIDE 20 MG TAB PO SCH (09:00)
[2022-05-20] MEDS: ASCORBIC ACID 500 MG TAB PO SCH (09:00)
[2022-05-20] MEDS: PROPRANOLOL 10 MG TAB PO SCH ×2 (09:00→21:00)
[2022-05-20] MEDS: VALPROIC ACID 250MG CAP PO SCH ×2 (09:00→21:00)
[2022-05-20] MEDS: DOCUSATE SODIUM 100MG CAPSULE PO SCH ×2 (09:00→21:00)
[2022-05-20] MEDS: fluPHENAZine 5MG TABLET PO SCH ×2 (09:00→21:00)
[2022-05-20] MEDS: GABAPENTIN 300 MG CAP PO SCH ×3 (09:00→21:00)
[2022-05-20] MEDS: TAMSULOSIN 0.4 MG CAP PO SCH (21:00)
[2022-05-21] MEDS: DOCUSATE SODIUM 100MG CAPSULE PO SCH ×2 (08:48→21:00)
[2022-05-21] MEDS: ASPIRIN 81MG ENTERIC TABLET PO SCH (08:48)
[2022-05-21] MEDS: PROPRANOLOL 10 MG TAB PO SCH ×2 (08:48→21:00)
[2022-05-21] MEDS: ASCORBIC ACID 500 MG TAB PO SCH (08:48)
[2022-05-21] MEDS: BENZTROPINE 1 MG TAB PO SCH ×2 (08:48→21:00)
[2022-05-21] MEDS: FUROSEMIDE 20 MG TAB PO SCH (08:48)
[2022-05-21] MEDS: fluPHENAZine 5MG TABLET PO SCH ×2 (08:48→21:00)
[2022-05-21] MEDS: GABAPENTIN 300 MG CAP PO SCH ×3 (08:48→21:00)
[2022-05-21] MEDS: VALPROIC ACID 250MG CAP PO SCH ×2 (08:48→21:00)
[2022-05-21] MEDS: TAMSULOSIN 0.4 MG CAP PO SCH (21:00)
[2022-05-22] MEDS: FUROSEMIDE 20 MG TAB PO SCH ×2 (09:00→10:57)
[2022-05-22] MEDS: BENZTROPINE 1 MG TAB PO SCH ×3 (09:00→21:14)
[2022-05-22] MEDS: DOCUSATE SODIUM 100MG CAPSULE PO SCH ×3 (09:00→21:14)
[2022-05-22] MEDS: ASPIRIN 81MG ENTERIC TABLET PO SCH ×2 (09:00→10:57)
[2022-05-22] MEDS: GABAPENTIN 300 MG CAP PO SCH ×4 (09:00→21:14)
[2022-05-22] MEDS: fluPHENAZine 5MG TABLET PO SCH ×3 (09:00→21:14)
[2022-05-22] MEDS: ASCORBIC ACID 500 MG TAB PO SCH (09:00)
[2022-05-22] MEDS: PROPRANOLOL 10 MG TAB PO SCH ×3 (09:00→21:16)
[2022-05-22] MEDS: VALPROIC ACID 250MG CAP PO SCH ×3 (09:00→21:13)
[2022-05-22 10:47] VITALS: BP 160/100
[2022-05-22] MEDS: NICOTINE POLACRILEX 2 MG GUM PO PRN ×2 (15:20→21:51)
[2022-05-22] MEDS: TAMSULOSIN 0.4 MG CAP PO SCH (21:14)
[2022-05-23] MEDS: NICOTINE POLACRILEX 2 MG GUM PO PRN ×3 (05:39→20:35)
[2022-05-23 06:50] VITALS: BP 126/87
[2022-05-23] MEDS: ASCORBIC ACID 500 MG TAB PO SCH (08:28)
[2022-05-23] MEDS: fluPHENAZine 5MG TABLET PO SCH ×2 (08:30→20:32)
[2022-05-23] MEDS: DOCUSATE SODIUM 100MG CAPSULE PO SCH ×2 (08:30→20:32)
[2022-05-23] MEDS: BENZTROPINE 1 MG TAB PO SCH ×2 (08:30→20:32)
[2022-05-23] MEDS: GABAPENTIN 300 MG CAP PO SCH ×3 (08:30→20:31)
[2022-05-23] MEDS: FUROSEMIDE 20 MG TAB PO SCH (08:30)
[2022-05-23] MEDS: ASPIRIN 81MG ENTERIC TABLET PO SCH (08:30)
[2022-05-23] MEDS: VALPROIC ACID 250MG CAP PO SCH ×2 (08:31→20:31)
[2022-05-23] MEDS: PROPRANOLOL 10 MG TAB PO SCH ×2 (08:31→20:32)
[2022-05-23] MEDS: CYCLOBENZAPRINE 5MG TABLET PO PRN (15:12)
[2022-05-23] MEDS: TAMSULOSIN 0.4 MG CAP PO SCH (20:31)
[2022-05-24] MEDS: IBUPROFEN 400MG TAB PO PRN (01:05)
[2022-05-24] MEDS: diphenhydrAMINE 25MG CAP PO PRN (01:33)
[2022-05-24] MEDS: LORazepam 2 MG TAB PO PRN (01:33)
[2022-05-24] MEDS: NICOTINE POLACRILEX 2 MG GUM PO PRN ×3 (09:37→23:34)
[2022-05-24] MEDS: DOCUSATE SODIUM 100MG CAPSULE PO SCH ×2 (09:53→20:39)
[2022-05-24] MEDS: VALPROIC ACID 250MG CAP PO SCH ×2 (09:53→20:39)
[2022-05-24] MEDS: BENZTROPINE 1 MG TAB PO SCH ×2 (09:53→20:40)
[2022-05-24] MEDS: ASPIRIN 81MG ENTERIC TABLET PO SCH (09:53)
[2022-05-24] MEDS: ASCORBIC ACID 500 MG TAB PO SCH (09:53)
[2022-05-24] MEDS: FUROSEMIDE 20 MG TAB PO SCH (09:53)
[2022-05-24] MEDS: GABAPENTIN 300 MG CAP PO SCH ×3 (09:54→20:40)
[2022-05-24] MEDS: PROPRANOLOL 10 MG TAB PO SCH ×2 (09:55→20:39)
[2022-05-24] MEDS: fluPHENAZine 5MG TABLET PO SCH ×2 (09:59→20:40)
[2022-05-24] MEDS: MOM 30ML SUSPENSION UDC PO PRN (11:14)
[2022-05-24 16:31] VITALS: BP 127/70
[2022-05-24] MEDS: TAMSULOSIN 0.4 MG CAP PO SCH (20:40)
[2022-05-25] MEDS: CYCLOBENZAPRINE 5MG TABLET PO PRN ×2 (01:41→22:01)
[2022-05-25] MEDS: MAALOX 30 ML SUSP *UDC PO PRN ×2 (01:47→15:51)
[2022-05-25] MEDS: LORazepam 2 MG TAB PO PRN (02:10)
[2022-05-25] MEDS: diphenhydrAMINE 25MG CAP PO PRN (02:10)
[2022-05-25 06:25] VITALS: BP 129/78
[2022-05-25] MEDS: NICOTINE 14 MG/24 HR TRANSDERMAL TD PRN (06:39)
[2022-05-25] MEDS: ASCORBIC ACID 500 MG TAB PO SCH (08:02)
[2022-05-25] MEDS: ASPIRIN 81MG ENTERIC TABLET PO SCH (08:02)
[2022-05-25] MEDS: PROPRANOLOL 10 MG TAB PO SCH ×2 (08:02→20:36)
[2022-05-25] MEDS: VALPROIC ACID 250MG CAP PO SCH ×2 (08:02→20:35)
[2022-05-25] MEDS: fluPHENAZine 5MG TABLET PO SCH ×2 (08:02→20:34)
[2022-05-25] MEDS: BENZTROPINE 1 MG TAB PO SCH ×2 (08:02→20:36)
[2022-05-25] MEDS: GABAPENTIN 300 MG CAP PO SCH ×3 (08:02→20:36)
[2022-05-25] MEDS: FUROSEMIDE 20 MG TAB PO SCH (08:02)
[2022-05-25] MEDS: DOCUSATE SODIUM 100MG CAPSULE PO SCH ×2 (08:03→20:36)
[2022-05-25] MEDS: IBUPROFEN 400MG TAB PO PRN (16:41)
[2022-05-25] MEDS: TAMSULOSIN 0.4 MG CAP PO SCH (20:36)
[2022-05-25] MEDS: NICOTINE POLACRILEX 2 MG GUM PO PRN (20:51)
[2022-05-25] MEDS: MOM 30ML SUSPENSION UDC PO PRN (21:20)
[2022-05-26] MEDS: LORazepam 2 MG TAB PO PRN (00:20)
[2022-05-26] MEDS: diphenhydrAMINE 25MG CAP PO PRN (00:20)
[2022-05-26] MEDS: NICOTINE 14 MG/24 HR TRANSDERMAL TD PRN (06:31)
[2022-05-26 06:46] VITALS: BP 134/85
[2022-05-26] MEDS: VALPROIC ACID 250MG CAP PO SCH ×2 (09:07→20:19)
[2022-05-26] MEDS: FUROSEMIDE 20 MG TAB PO SCH (09:07)
[2022-05-26] MEDS: ASCORBIC ACID 500 MG TAB PO SCH (09:07)
[2022-05-26] MEDS: DOCUSATE SODIUM 100MG CAPSULE PO SCH ×2 (09:07→20:18)
[2022-05-26] MEDS: ASPIRIN 81MG ENTERIC TABLET PO SCH (09:07)
[2022-05-26] MEDS: GABAPENTIN 300 MG CAP PO SCH ×3 (09:07→20:18)
[2022-05-26] MEDS: fluPHENAZine 5MG TABLET PO SCH ×2 (09:08→20:19)
[2022-05-26] MEDS: BENZTROPINE 1 MG TAB PO SCH ×2 (09:08→20:18)
[2022-05-26] MEDS: PROPRANOLOL 10 MG TAB PO SCH ×2 (09:08→20:20)
[2022-05-26] MEDS: CYCLOBENZAPRINE 5MG TABLET PO PRN (16:16)
[2022-05-26 16:43] VITALS: BP 134/76
[2022-05-26] MEDS: MAALOX 30 ML SUSP *UDC PO PRN (19:16)
[2022-05-26] MEDS: MOM 30ML SUSPENSION UDC PO PRN (19:16)
[2022-05-26] MEDS: TAMSULOSIN 0.4 MG CAP PO SCH (20:19)
[2022-05-26] MEDS: ACETAMINOPHEN TAB 650MG DOSE (2X325MG) PO PRN (20:21)
[2022-05-26] MEDS: IBUPROFEN 400MG TAB PO PRN (23:30)
[2022-05-27] MEDS: NICOTINE POLACRILEX 2 MG GUM PO PRN ×2 (00:37→19:40)
[2022-05-27 07:02] VITALS: BP 116/67
[2022-05-27] MEDS: ASPIRIN 81MG ENTERIC TABLET PO SCH (10:59)
[2022-05-27] MEDS: VALPROIC ACID 250MG CAP PO SCH ×2 (10:59→20:40)
[2022-05-27] MEDS: DOCUSATE SODIUM 100MG CAPSULE PO SCH ×2 (10:59→20:40)
[2022-05-27] MEDS: PROPRANOLOL 10 MG TAB PO SCH ×2 (11:00→20:40)
[2022-05-27] MEDS: GABAPENTIN 300 MG CAP PO SCH ×3 (11:00→20:40)
[2022-05-27] MEDS: FUROSEMIDE 20 MG TAB PO SCH (11:00)
[2022-05-27] MEDS: fluPHENAZine 5MG TABLET PO SCH ×2 (11:00→20:41)
[2022-05-27] MEDS: ASCORBIC ACID 500 MG TAB PO SCH (11:00)
[2022-05-27] MEDS: BENZTROPINE 1 MG TAB PO SCH ×2 (11:01→20:40)
[2022-05-27] MEDS: NICOTINE 14 MG/24 HR TRANSDERMAL TD PRN (11:04)
[2022-05-27 19:05] VITALS: BP 144/84
[2022-05-27] MEDS: TAMSULOSIN 0.4 MG CAP PO SCH (20:40)
[2022-05-28] MEDS: NICOTINE POLACRILEX 2 MG GUM PO PRN ×2 (02:06→11:07)
[2022-05-28] MEDS: CYCLOBENZAPRINE 5MG TABLET PO PRN (03:00)
[2022-05-28] MEDS ORDERED: fluPHENAZine DECAN 25MG/ML 5ML VIAL (J2680) IM SCH (08:00)
[2022-05-28] MEDS: VALPROIC ACID 250MG CAP PO SCH (08:29)
[2022-05-28] MEDS: fluPHENAZine 5MG TABLET PO SCH (08:30)
[2022-05-28] MEDS: PROPRANOLOL 10 MG TAB PO SCH (08:30)
[2022-05-28] MEDS: ASPIRIN 81MG ENTERIC TABLET PO SCH (08:30)
[2022-05-28] MEDS: DOCUSATE SODIUM 100MG CAPSULE PO SCH (08:30)
[2022-05-28] MEDS: BENZTROPINE 1 MG TAB PO SCH (08:30)
[2022-05-28] MEDS: GABAPENTIN 300 MG CAP PO SCH (08:30)
[2022-05-28] MEDS: FUROSEMIDE 20 MG TAB PO SCH (08:31)
[2022-05-28] MEDS: ASCORBIC ACID 500 MG TAB PO SCH (08:31)
[2022-05-28 08:36] VITALS: BP 130/67
[2022-05-28] MEDS: NICOTINE 14 MG/24 HR TRANSDERMAL TD PRN (08:56)
[2022-05-28] MEDS ORDERED: NICO2GUM PO (09:13)
[2022-05-28] MEDS ORDERED: LIDO5TD TD (09:13)
[2022-05-28] MEDS ORDERED: FLUP25VL IM (09:13)
[2022-05-28] MEDS ORDERED: FLUP5TAB13 PO (09:13)
[2022-05-28] MEDS ORDERED: VALP1CAP2 PO (09:13)
[2022-05-28] MEDS: MAALOX 30 ML SUSP *UDC PO PRN (10:38)
== END 2022-05-28 12:50 | disposition home or self-care (01) | DRG 885 ==
LOC: M ED 14:07 → M ED INP 05-14 00:07 → M PSY 05-14 03:56
PROVIDERS: ADMIT Student in an Organized Health Care Education/Training Program; ATTEND Student in an Organized Health Care Education/Training Program
DX: F20.9 Schizophrenia, unspecified (principal); Z91.14 Patient's other noncompliance with medication regimen; Z79.899 Other long term (current) drug therapy; Z79.82 Long term (current) use of aspirin; Z88.8 Allergy status to other drugs, medicaments and biological substances; I10 Essential (primary) hypertension; N40.0 Benign prostatic hyperplasia without lower urinary tract symptoms; R25.1 Tremor, unspecified; G62.9 Polyneuropathy, unspecified

== ENCOUNTER 2022-07-01 22:12 | Inpatient (IN) | payer MEDICARE, MEDICAID ==
[~2022-07-01] VITALS: Ht 185.4 cm; Wt 118.8 kg
[~2022-07-01 22:12] MED LIST changes: +ASCO500T PO; +ASPI81TA27 PO; +DOCU100C17 PO; +LIDO5TD TD; +MED REC COMMENT; +NICO2GUM PO
[2022-07-01 23:24] LABS: HEMATOCRIT 44.6 % (42.0-52.0); HEMOGLOBIN 14.2 g/dl (13.5-17.5); MEAN CORPUSCULAR HEMOGLOBIN 29.8 pg (27.0-33.0); MEAN CORPUSCULAR HGB CONC 31.8 g/dl (32.0-36.5); MEAN CORPUSCULAR VOLUME 93.7 fl (80.0-96.0); PLATELET COUNT, AUTOMATED 161 10^3/uL (150-450); RED BLOOD COUNT 4.76 10^6/uL (4.30-6.10)
[2022-07-01 23:31] LABS: ETHYL ALCOHOL (ETHANOL) 0.003 % (0.000-0.010)
[2022-07-01 23:33] LABS: ACETAMINOPHEN LEVEL < 2.0 UG/ML (10.0-20.0); ALBUMIN 3.9 G/DL (3.2-5.2); ALKALINE PHOSPHATASE 65 U/L (46-116); ALT/SGPT 14 U/L (7.0-40); AST/SGOT 17 U/L (<34); BILIRUBIN,DIRECT 0.1 MG/DL (<0.4); BILIRUBIN,TOTAL 0.4 MG/DL (0.3-1.2); BLOOD UREA NITROGEN 17 MG/DL (9-23); CALCIUM LEVEL 9.1 MG/DL (8.5-10.1); CARBON DIOXIDE LEVEL 27 MMOL/L (20-31); CHLORIDE LEVEL 103 MMOL/L (98-107); CREATININE FOR GFR 1.35 MG/DL (0.70-1.30); GLOMERULAR FILTRATION RATE 57.6 (>56); GLUCOSE, FASTING 99 MG/DL (60-100); SALICYLATE LEVEL < 3.0 MG/DL (<30); SODIUM LEVEL 140 MMOL/L (136-145); TOTAL PROTEIN 7.4 G/DL (5.7-8.2)
[2022-07-01 23:36] LABS: THYROID STIMULATING HORMONE 1.641 uIU/ML (0.55-4.78)
[2022-07-01 23:54] LABS: RSV AMPLIFICATION NEGATIVE (NEGATIVE)
[2022-07-02 03:15] LABS: AMPHETAMINES LEVEL URINE NEGATIVE (NEGATIVE); BARBITURATES URINE NEGATIVE (NEGATIVE); BENZODIAZEPINES URINE NEGATIVE (NEGATIVE); CANNABINOIDS URINE NEGATIVE (NEGATIVE); METHADONE URINE NEGATIVE (NEGATIVE); OPIATES URINE NEGATIVE (NEGATIVE); PHENCYCLIDINE URINE NEGATIVE (NEGATIVE)
[2022-07-02 03:16] LABS: COCAINE METABOLITE URINE NEGATIVE (NEGATIVE)
[2022-07-02] MEDS ORDERED: FLUP25VL IM (08:56)
[2022-07-02] MEDS ORDERED: FLUP5TAB13 PO (08:56)
[2022-07-02] MEDS ORDERED: VALP1CAP2 PO (08:58)
[2022-07-02] MEDS ORDERED: PROPRANOLOL 10 MG TAB PO SCH (09:00)
[2022-07-02] MEDS ORDERED: ASPIRIN 81MG ENTERIC TABLET PO SCH (09:00)
[2022-07-02] MEDS ORDERED: GABAPENTIN 300 MG CAP PO SCH (09:00)
[2022-07-02] MEDS: VALPROIC ACID 250MG CAP PO SCH ×3 (09:00→21:00)
[2022-07-02] MEDS ORDERED: BENZTROPINE 1 MG TAB PO SCH (09:00)
[2022-07-02] MEDS ORDERED: FUROSEMIDE 20 MG TAB PO SCH (09:00)
[2022-07-02] MEDS ORDERED: PANTOPRAZOLE 40MG TAB (PROTONIX) PO SCH (09:00)
[2022-07-02] MEDS: ASCORBIC ACID 500 MG TAB PO SCH (09:00)
[2022-07-02] MEDS ORDERED: SM N0.65 NARES (09:01)
[2022-07-02] MEDS ORDERED: POLYOPD OU (09:01)
[2022-07-02] MEDS ORDERED: PANT40TA29 PO (09:13)
[2022-07-02] MEDS ORDERED: VITA-148 PO (09:13)
[2022-07-02] MEDS ORDERED: HOME MED LIST COMPLETE! XX SCH (09:15)
[2022-07-02] MEDS: fluPHENAZine 5MG TABLET PO SCH ×3 (11:17→21:00)
[2022-07-02] MEDS ORDERED: MAALOX 30 ML SUSP *UDC PO PRN (12:25)
[2022-07-02] MEDS ORDERED: diphenhydrAMINE 25MG CAP PO PRN (12:25)
[2022-07-02] MEDS ORDERED: MOM 30ML SUSPENSION UDC PO PRN (12:25)
[2022-07-02] MEDS ORDERED: OLANZapine ORAL DISINTEGRATING TAB 5MG PO PRN (12:25)
[2022-07-02] MEDS: SODIUM CHLORIDE NASAL 0.65% SPRAY BTL (OCEAN) SCH ×2 (16:00→21:00)
[2022-07-02] MEDS: POLYVINYL ALCOHOL OPHTH SOLN 15ML (LIQUITEARS) OU SCH ×2 (16:00→21:00)
[2022-07-02] MEDS: GABAPENTIN 300 MG CAP PO SCH ×2 (16:00→21:00)
[2022-07-02] MEDS: DOCUSATE SODIUM 100MG CAPSULE PO SCH (21:00)
[2022-07-02] MEDS: PROPRANOLOL 10 MG TAB PO SCH (21:00)
[2022-07-02] MEDS: TAMSULOSIN 0.4 MG CAP PO SCH (21:00)
[2022-07-02] MEDS: BENZTROPINE 1 MG TAB PO SCH (21:00)
[2022-07-02] MEDS ORDERED: TAMSULOSIN 0.4 MG CAP PO SCH (21:00)
[2022-07-03 07:00] VITALS: BP 180/98
[2022-07-03] MEDS: NICOTINE 21MG/24HR 1 EA TRANSDERMAL TD SCH ×2 (09:00→16:30)
[2022-07-03] MEDS: fluPHENAZine 5MG TABLET PO SCH ×2 (09:00→21:00)
[2022-07-03] MEDS: ASPIRIN 81MG ENTERIC TABLET PO SCH (09:00)
[2022-07-03] MEDS: PROPRANOLOL 10 MG TAB PO SCH ×2 (09:00→21:00)
[2022-07-03] MEDS: POLYVINYL ALCOHOL OPHTH SOLN 15ML (LIQUITEARS) OU SCH ×3 (09:00→21:00)
[2022-07-03] MEDS: SODIUM CHLORIDE NASAL 0.65% SPRAY BTL (OCEAN) SCH ×3 (09:00→21:00)
[2022-07-03] MEDS ORDERED: FUROSEMIDE 20 MG TAB PO SCH (09:00)
[2022-07-03] MEDS: FUROSEMIDE 20 MG TAB PO SCH ×2 (09:00→12:51)
[2022-07-03] MEDS: GABAPENTIN 300 MG CAP PO SCH ×4 (09:00→21:00)
[2022-07-03] MEDS: DOCUSATE SODIUM 100MG CAPSULE PO SCH ×2 (09:00→21:00)
[2022-07-03] MEDS: ASCORBIC ACID 500 MG TAB PO SCH (09:00)
[2022-07-03] MEDS: VALPROIC ACID 250MG CAP PO SCH ×2 (09:00→21:00)
[2022-07-03] MEDS: BENZTROPINE 1 MG TAB PO SCH ×2 (09:00→21:00)
[2022-07-03] MEDS: lisinopriL 40MG TAB PO SCH ×2 (09:00→12:55)
[2022-07-03] MEDS: PANTOPRAZOLE 40MG TAB (PROTONIX) PO SCH (09:00)
[2022-07-03 11:13] LABS: BLOOD UREA NITROGEN 9 MG/DL (9-23); CALCIUM LEVEL 9.4 MG/DL (8.5-10.1); CARBON DIOXIDE LEVEL 27 MMOL/L (20-31); CHLORIDE LEVEL 101 MMOL/L (98-107); GLOMERULAR FILTRATION RATE > 60.0 (>56); GLUCOSE, FASTING 109 MG/DL (60-100); POTASSIUM SERUM 4.1 MMOL/L (3.5-5.1); SODIUM LEVEL 136 MMOL/L (136-145)
[2022-07-03 16:06] VITALS: BP 168/108
[2022-07-03] MEDS: TAMSULOSIN 0.4 MG CAP PO SCH (21:00)
[2022-07-04] MEDS: traZODone 50 MG TAB PO PRN ×2 (02:42→21:59)
[2022-07-04] MEDS: GABAPENTIN 300 MG CAP PO SCH ×3 (07:53→20:44)
[2022-07-04] MEDS: FUROSEMIDE 20 MG TAB PO SCH (07:53)
[2022-07-04] MEDS: lisinopriL 40MG TAB PO SCH (07:53)
[2022-07-04] MEDS: ASCORBIC ACID 500 MG TAB PO SCH (07:53)
[2022-07-04] MEDS: VALPROIC ACID 250MG CAP PO SCH ×2 (07:54→20:44)
[2022-07-04] MEDS: DOCUSATE SODIUM 100MG CAPSULE PO SCH ×2 (07:54→20:44)
[2022-07-04] MEDS: fluPHENAZine 5MG TABLET PO SCH ×2 (07:54→20:45)
[2022-07-04] MEDS: PANTOPRAZOLE 40MG TAB (PROTONIX) PO SCH (07:54)
[2022-07-04] MEDS: ASPIRIN 81MG ENTERIC TABLET PO SCH (07:55)
[2022-07-04] MEDS: BENZTROPINE 1 MG TAB PO SCH ×2 (07:55→20:45)
[2022-07-04] MEDS: SODIUM CHLORIDE NASAL 0.65% SPRAY BTL (OCEAN) SCH ×3 (07:55→20:44)
[2022-07-04] MEDS: POLYVINYL ALCOHOL OPHTH SOLN 15ML (LIQUITEARS) OU SCH ×3 (07:55→20:50)
[2022-07-04] MEDS: PROPRANOLOL 10 MG TAB PO SCH ×2 (07:55→20:45)
[2022-07-04] MEDS: NICOTINE 21MG/24HR 1 EA TRANSDERMAL TD SCH (07:56)
[2022-07-04 18:12] VITALS: BP 152/88
[2022-07-04] MEDS: TAMSULOSIN 0.4 MG CAP PO SCH (20:44)
[2022-07-04] MEDS: IBUPROFEN 400MG TAB PO PRN (20:51)
[2022-07-04] MEDS: diphenhydrAMINE 50MG CAP PO PRN (21:59)
[2022-07-04] MEDS: LORazepam 2 MG TAB PO PRN (22:01)
[2022-07-05 05:58] VITALS: BP 109/59
[2022-07-05 08:01] LABS: BLOOD UREA NITROGEN 9 MG/DL (9-23); CALCIUM LEVEL 8.7 MG/DL (8.5-10.1); CARBON DIOXIDE LEVEL 29 MMOL/L (20-31); CHLORIDE LEVEL 101 MMOL/L (98-107); CREATININE FOR GFR 0.64 MG/DL (0.70-1.30); GLOMERULAR FILTRATION RATE > 60.0 (>56); GLUCOSE, FASTING 89 MG/DL (60-100); POTASSIUM SERUM 4.4 MMOL/L (3.5-5.1); SODIUM LEVEL 136 MMOL/L (136-145)
[2022-07-05] MEDS: SODIUM CHLORIDE NASAL 0.65% SPRAY BTL (OCEAN) SCH ×3 (09:00→20:27)
[2022-07-05] MEDS: DOCUSATE SODIUM 100MG CAPSULE PO SCH ×2 (09:33→20:26)
[2022-07-05] MEDS: fluPHENAZine 5MG TABLET PO SCH ×2 (09:33→20:25)
[2022-07-05] MEDS: lisinopriL 40MG TAB PO SCH (09:34)
[2022-07-05] MEDS: ASPIRIN 81MG ENTERIC TABLET PO SCH (09:34)
[2022-07-05] MEDS: PANTOPRAZOLE 40MG TAB (PROTONIX) PO SCH (09:34)
[2022-07-05] MEDS: FUROSEMIDE 20 MG TAB PO SCH (09:34)
[2022-07-05] MEDS: ASCORBIC ACID 500 MG TAB PO SCH (09:34)
[2022-07-05] MEDS: GABAPENTIN 300 MG CAP PO SCH ×3 (09:34→20:25)
[2022-07-05] MEDS: PROPRANOLOL 10 MG TAB PO SCH ×2 (09:35→20:26)
[2022-07-05] MEDS: BENZTROPINE 1 MG TAB PO SCH ×2 (09:35→20:26)
[2022-07-05] MEDS: VALPROIC ACID 250MG CAP PO SCH ×2 (09:35→20:25)
[2022-07-05] MEDS: POLYVINYL ALCOHOL OPHTH SOLN 15ML (LIQUITEARS) OU SCH ×3 (09:36→20:27)
[2022-07-05] MEDS: IBUPROFEN 400MG TAB PO PRN ×2 (09:41→23:19)
[2022-07-05] MEDS: NICOTINE POLACRILEX 2 MG GUM PO PRN ×2 (12:10→16:12)
[2022-07-05] MEDS ORDERED: fluPHENAZine DECAN 25MG/ML 5ML VIAL IM ONE (14:00)
[2022-07-05 16:24] VITALS: BP 139/87
[2022-07-05] MEDS: TAMSULOSIN 0.4 MG CAP PO SCH (20:26)
[2022-07-05] MEDS: traZODone 50 MG TAB PO PRN (22:06)
[2022-07-05] MEDS: diphenhydrAMINE 50MG CAP PO PRN (22:06)
[2022-07-05] MEDS: LORazepam 2 MG TAB PO PRN (22:06)
[2022-07-06] MEDS: VALPROIC ACID 250MG CAP PO SCH ×2 (09:29→20:51)
[2022-07-06] MEDS: FUROSEMIDE 20 MG TAB PO SCH (09:29)
[2022-07-06] MEDS: fluPHENAZine 5MG TABLET PO SCH ×2 (09:29→20:52)
[2022-07-06] MEDS: GABAPENTIN 300 MG CAP PO SCH ×3 (09:29→20:51)
[2022-07-06] MEDS: SODIUM CHLORIDE NASAL 0.65% SPRAY BTL (OCEAN) SCH ×3 (09:30→20:53)
[2022-07-06] MEDS: PANTOPRAZOLE 40MG TAB (PROTONIX) PO SCH (09:30)
[2022-07-06] MEDS: DOCUSATE SODIUM 100MG CAPSULE PO SCH ×2 (09:30→20:51)
[2022-07-06] MEDS: POLYVINYL ALCOHOL OPHTH SOLN 15ML (LIQUITEARS) OU SCH ×3 (09:30→20:54)
[2022-07-06] MEDS: PROPRANOLOL 10 MG TAB PO SCH ×2 (09:30→20:52)
[2022-07-06] MEDS: ASCORBIC ACID 500 MG TAB PO SCH (09:30)
[2022-07-06] MEDS: lisinopriL 40MG TAB PO SCH (09:30)
[2022-07-06] MEDS: ASPIRIN 81MG ENTERIC TABLET PO SCH (09:30)
[2022-07-06] MEDS: BENZTROPINE 1 MG TAB PO SCH ×2 (09:31→20:51)
[2022-07-06 09:42] VITALS: BP 146/94
[2022-07-06] MEDS: NICOTINE POLACRILEX 2 MG GUM PO PRN ×2 (10:24→16:35)
[2022-07-06] MEDS ORDERED: BOOSTRIX/ADACEL VACCINE (DIPHTH/PERTUSS/ACELL/TETANUS) 0.5ML SYR IM ONE (15:00)
[2022-07-06 16:11] VITALS: BP 138/88
[2022-07-06] MEDS: NEOSPORIN TOP OINT 15GM TOP SCH (17:51)
[2022-07-06] MEDS: TAMSULOSIN 0.4 MG CAP PO SCH (20:52)
[2022-07-06] MEDS: LORazepam 2 MG TAB PO PRN (23:01)
[2022-07-06] MEDS: traZODone 50 MG TAB PO PRN (23:01)
[2022-07-06] MEDS: diphenhydrAMINE 50MG CAP PO PRN (23:01)
[2022-07-07 06:37] VITALS: BP 154/97
[2022-07-07] MEDS: PANTOPRAZOLE 40MG TAB (PROTONIX) PO SCH (09:30)
[2022-07-07] MEDS: ASCORBIC ACID 500 MG TAB PO SCH (09:31)
[2022-07-07] MEDS: VALPROIC ACID 250MG CAP PO SCH ×2 (09:31→21:27)
[2022-07-07] MEDS: ASPIRIN 81MG ENTERIC TABLET PO SCH (09:31)
[2022-07-07] MEDS: fluPHENAZine 5MG TABLET PO SCH ×2 (09:31→21:27)
[2022-07-07] MEDS: lisinopriL 40MG TAB PO SCH (09:31)
[2022-07-07] MEDS: GABAPENTIN 300 MG CAP PO SCH ×3 (09:31→21:27)
[2022-07-07] MEDS: SODIUM CHLORIDE NASAL 0.65% SPRAY BTL (OCEAN) SCH ×3 (09:31→21:00)
[2022-07-07] MEDS: DOCUSATE SODIUM 100MG CAPSULE PO SCH ×2 (09:31→21:27)
[2022-07-07] MEDS: BENZTROPINE 1 MG TAB PO SCH ×2 (09:31→21:27)
[2022-07-07] MEDS: FUROSEMIDE 20 MG TAB PO SCH (09:32)
[2022-07-07] MEDS: NEOSPORIN TOP OINT 15GM TOP SCH (09:32)
[2022-07-07] MEDS: POLYVINYL ALCOHOL OPHTH SOLN 15ML (LIQUITEARS) OU SCH ×3 (09:32→21:00)
[2022-07-07] MEDS: PROPRANOLOL 10 MG TAB PO SCH ×2 (09:33→21:27)
[2022-07-07] MEDS: NICOTINE POLACRILEX 2 MG GUM PO PRN (13:51)
[2022-07-07] MEDS: IBUPROFEN 400MG TAB PO PRN ×2 (13:51→21:34)
[2022-07-07] MEDS: TAMSULOSIN 0.4 MG CAP PO SCH (21:27)
[2022-07-07] MEDS: traZODone 50 MG TAB PO PRN (21:31)
[2022-07-07] MEDS: diphenhydrAMINE 50MG CAP PO PRN (21:31)
[2022-07-07] MEDS: LORazepam 2 MG TAB PO PRN (21:33)
[2022-07-08 06:39] VITALS: BP 130/80
[2022-07-08] MEDS: NICOTINE POLACRILEX 2 MG GUM PO PRN (07:10)
[2022-07-08] MEDS: DOCUSATE SODIUM 100MG CAPSULE PO SCH (09:41)
[2022-07-08] MEDS: BENZTROPINE 1 MG TAB PO SCH (09:41)
[2022-07-08] MEDS: PANTOPRAZOLE 40MG TAB (PROTONIX) PO SCH (09:41)
[2022-07-08 09:42] VITALS: BP 130/80
[2022-07-08] MEDS: FUROSEMIDE 20 MG TAB PO SCH (09:42)
[2022-07-08] MEDS: PROPRANOLOL 10 MG TAB PO SCH (09:42)
[2022-07-08] MEDS: ASPIRIN 81MG ENTERIC TABLET PO SCH (09:42)
[2022-07-08] MEDS: GABAPENTIN 300 MG CAP PO SCH (09:42)
[2022-07-08] MEDS: ASCORBIC ACID 500 MG TAB PO SCH (09:42)
[2022-07-08] MEDS: lisinopriL 40MG TAB PO SCH (09:42)
[2022-07-08] MEDS: fluPHENAZine 5MG TABLET PO SCH (09:42)
[2022-07-08] MEDS: NEOSPORIN TOP OINT 15GM TOP SCH (09:46)
[2022-07-08] MEDS: POLYVINYL ALCOHOL OPHTH SOLN 15ML (LIQUITEARS) OU SCH (09:47)
[2022-07-08] MEDS: VALPROIC ACID 250MG CAP PO SCH (09:47)
[2022-07-08] MEDS: SODIUM CHLORIDE NASAL 0.65% SPRAY BTL (OCEAN) SCH (09:47)
[2022-07-08] MEDS ORDERED: VALP1CAP2 PO (10:43)
[2022-07-08] MEDS ORDERED: HALO5TAB33 PO (10:43)
[2022-07-08] MEDS ORDERED: NICO2GUM PO (10:43)
[2022-07-08] MEDS ORDERED: FLUP5TAB13 PO (10:43)
[2022-07-08] MEDS ORDERED: TRAZ-252 PO (10:43)
[2022-07-08] MEDS ORDERED: LORA2TA PO (10:43)
[2022-07-08] MEDS ORDERED: DIPH50CA PO (10:43)
[2022-07-08] MEDS ORDERED: FLUP25VL IM (10:43)
== END 2022-07-08 12:51 | disposition home or self-care (01) | DRG 885 ==
LOC: M ED 22:12 → M ED INP 07-02 12:23 → M PSY 07-02 14:11
PROVIDERS: ADMIT Psychiatry & Neurology Psychiatry; ATTEND Student in an Organized Health Care Education/Training Program
DX: F20.9 Schizophrenia, unspecified (principal); I10 Essential (primary) hypertension; G25.0 Essential tremor; N40.0 Benign prostatic hyperplasia without lower urinary tract symptoms; F17.210 Nicotine dependence, cigarettes, uncomplicated; Z79.82 Long term (current) use of aspirin; Z79.899 Other long term (current) drug therapy; Z88.8 Allergy status to other drugs, medicaments and biological substances; Z20.822 Contact with and (suspected) exposure to COVID-19

== ENCOUNTER 2022-07-11 11:35 | Inpatient (IN) | payer MEDICARE, MEDICAID ==
[~2022-07-11] VITALS: Ht 182.9 cm; Wt 122.0 kg
[~2022-07-11 11:35] MED LIST changes: -BENZ-52 PO; +BENZ1TAB5 PO; +DIPH50CA PO; +LORA2TA PO; +PANT40TA29 PO; +POLYOPD OU; +SM N0.65 NARES; +VITA-148 PO
[2022-07-11 12:14] LABS: HEMOGLOBIN 14.3 g/dl (13.5-17.5); MEAN CORPUSCULAR HEMOGLOBIN 30.1 pg (27.0-33.0); MEAN CORPUSCULAR HGB CONC 31.8 g/dl (32.0-36.5); MEAN CORPUSCULAR VOLUME 94.7 fl (80.0-96.0); PLATELET COUNT, AUTOMATED 202 10^3/uL (150-450); RED BLOOD COUNT 4.75 10^6/uL (4.30-6.10); WHITE BLOOD COUNT 8.5 10^3/uL (4.0-10.0)
[2022-07-11 12:40] LABS: AMPHETAMINES LEVEL URINE NEGATIVE (NEGATIVE)
[2022-07-11 12:41] LABS: BARBITURATES URINE NEGATIVE (NEGATIVE); BENZODIAZEPINES URINE NEGATIVE (NEGATIVE); CANNABINOIDS URINE NEGATIVE (NEGATIVE); COCAINE METABOLITE URINE NEGATIVE (NEGATIVE); METHADONE URINE NEGATIVE (NEGATIVE); OPIATES URINE NEGATIVE (NEGATIVE); PHENCYCLIDINE URINE NEGATIVE (NEGATIVE)
[2022-07-11 12:43] LABS: ETHYL ALCOHOL (ETHANOL) 0.005 % (0.000-0.010)
[2022-07-11 12:44] LABS: ACETAMINOPHEN LEVEL < 2.0 UG/ML (10.0-20.0)
[2022-07-11 12:45] LABS: ALBUMIN 3.9 G/DL (3.2-5.2); ALKALINE PHOSPHATASE 66 U/L (46-116); ALT/SGPT 23 U/L (7.0-40); AST/SGOT 21 U/L (<34); BILIRUBIN,DIRECT 0.1 MG/DL (<0.4); BILIRUBIN,TOTAL 0.3 MG/DL (0.3-1.2); BLOOD UREA NITROGEN 19 MG/DL (9-23); CALCIUM LEVEL 9.5 MG/DL (8.5-10.1); CARBON DIOXIDE LEVEL 33 MMOL/L (20-31); CHLORIDE LEVEL 99 MMOL/L (98-107); CREATININE FOR GFR 0.78 MG/DL (0.70-1.30); GLOMERULAR FILTRATION RATE > 60.0 (>56); GLUCOSE, FASTING 72 MG/DL (60-100); POTASSIUM SERUM 4.1 MMOL/L (3.5-5.1); RSV AMPLIFICATION NEGATIVE (NEGATIVE); SALICYLATE LEVEL < 3.0 MG/DL (<30); SODIUM LEVEL 136 MMOL/L (136-145); TOTAL PROTEIN 7.4 G/DL (5.7-8.2)
[2022-07-11 12:46] LABS: THYROID STIMULATING HORMONE 0.677 uIU/ML (0.55-4.78)
[2022-07-11 14:25] LABS: VALPROIC ACID (DEPAKOTE) 119.5 UG/ML (50.0-100.0)
[2022-07-11] MEDS ORDERED: FLUP5TAB13 PO (15:23)
[2022-07-11] MEDS ORDERED: HOME MED LIST COMPLETE! XX SCH (15:25)
[2022-07-11] MEDS ORDERED: GABAPENTIN 300 MG CAP PO ONE (16:30)
[2022-07-11] MEDS ORDERED: DOCUSATE SODIUM 100MG CAPSULE PO ONE (16:30)
[2022-07-11] MEDS ORDERED: PROPRANOLOL 10 MG TAB PO ONE (16:30)
[2022-07-11] MEDS ORDERED: BENZTROPINE 1 MG TAB PO ONE (16:30)
[2022-07-11] MEDS ORDERED: fluPHENAZine 5MG TABLET PO ONE (16:30)
[2022-07-11] MEDS ORDERED: TAMSULOSIN 0.4 MG CAP PO ONE (22:00)
[2022-07-12] MEDS ORDERED: DOCUSATE SODIUM 100MG CAPSULE PO SCH (09:00)
[2022-07-12] MEDS ORDERED: GABAPENTIN 300 MG CAP PO SCH (09:00)
[2022-07-12] MEDS ORDERED: PROPRANOLOL 10 MG TAB PO SCH (09:00)
[2022-07-12] MEDS ORDERED: BENZTROPINE 1 MG TAB PO SCH (09:00)
[2022-07-12] MEDS ORDERED: ASPIRIN 81MG ENTERIC TABLET PO SCH (09:00)
[2022-07-12] MEDS ORDERED: NICOTINE 21MG/24HR 1 EA TRANSDERMAL TD SCH (09:00)
[2022-07-12] MEDS ORDERED: PANTOPRAZOLE 40MG TAB (PROTONIX) PO SCH (09:00)
[2022-07-12] MEDS ORDERED: fluPHENAZine 5MG TABLET PO SCH (09:00)
[2022-07-12] MEDS ORDERED: traZODone 50 MG TAB PO PRN (09:15)
[2022-07-12] MEDS: VALPROIC ACID 250MG CAP PO SCH ×2 (15:09→21:00)
[2022-07-12] MEDS: ASCORBIC ACID 500 MG TAB PO SCH (15:09)
[2022-07-12] MEDS: IBUPROFEN 400MG TAB PO PRN (15:11)
[2022-07-12] MEDS: fluPHENAZine 5MG TABLET PO SCH ×2 (15:58→21:00)
[2022-07-12] MEDS: FUROSEMIDE 20 MG TAB PO SCH (15:58)
[2022-07-12] MEDS: SODIUM CHLORIDE NASAL 0.65% SPRAY BTL (OCEAN) SCH ×2 (16:00→21:00)
[2022-07-12] MEDS: GABAPENTIN 300 MG CAP PO SCH ×2 (16:00→21:00)
[2022-07-12] MEDS: POLYVINYL ALCOHOL OPHTH SOLN 15ML (LIQUITEARS) OU SCH ×2 (16:00→21:00)
[2022-07-12] MEDS: NICOTINE POLACRILEX 2 MG GUM PO PRN ×2 (16:41→21:37)
[2022-07-12] MEDS: BENZTROPINE 1 MG TAB PO SCH (21:00)
[2022-07-12] MEDS ORDERED: TAMSULOSIN 0.4 MG CAP PO SCH (21:00)
[2022-07-12] MEDS: DOCUSATE SODIUM 100MG CAPSULE PO SCH (21:00)
[2022-07-12] MEDS: PROPRANOLOL 10 MG TAB PO SCH (21:00)
[2022-07-12] MEDS: TAMSULOSIN 0.4 MG CAP PO SCH (21:00)
[2022-07-12] MEDS: LORazepam 1 MG TAB PO PRN (21:37)
[2022-07-12] MEDS: diphenhydrAMINE 50MG CAP PO PRN (21:49)
[2022-07-12] MEDS: traZODone 50 MG TAB PO PRN (23:40)
[2022-07-13] MEDS: NICOTINE POLACRILEX 2 MG GUM PO PRN ×3 (02:23→21:48)
[2022-07-13] MEDS: DOCUSATE SODIUM 100MG CAPSULE PO SCH ×3 (09:00→21:00)
[2022-07-13] MEDS ORDERED: NICOTINE 14 MG/24 HR TRANSDERMAL TD SCH (09:00)
[2022-07-13] MEDS: ASCORBIC ACID 500 MG TAB PO SCH (09:00)
[2022-07-13] MEDS ORDERED: FUROSEMIDE 20 MG TAB PO SCH (09:00)
[2022-07-13] MEDS: POLYVINYL ALCOHOL OPHTH SOLN 15ML (LIQUITEARS) OU SCH ×3 (09:00→21:00)
[2022-07-13] MEDS: VALPROIC ACID 250MG CAP PO SCH ×2 (09:00→21:00)
[2022-07-13] MEDS: PROPRANOLOL 10 MG TAB PO SCH ×2 (09:00→21:00)
[2022-07-13] MEDS: GABAPENTIN 300 MG CAP PO SCH ×4 (09:00→21:00)
[2022-07-13] MEDS: PANTOPRAZOLE 40MG TAB (PROTONIX) PO SCH ×2 (09:00→11:22)
[2022-07-13] MEDS: ASPIRIN 81MG ENTERIC TABLET PO SCH ×2 (09:00→11:22)
[2022-07-13] MEDS: BENZTROPINE 1 MG TAB PO SCH ×3 (09:00→21:00)
[2022-07-13] MEDS: FUROSEMIDE 20 MG TAB PO SCH (09:00)
[2022-07-13] MEDS: fluPHENAZine 5MG TABLET PO SCH ×2 (09:00→21:00)
[2022-07-13] MEDS: SODIUM CHLORIDE NASAL 0.65% SPRAY BTL (OCEAN) SCH ×3 (09:00→21:00)
[2022-07-13 17:40] VITALS: BP 152/96
[2022-07-13] MEDS: TAMSULOSIN 0.4 MG CAP PO SCH (21:00)
[2022-07-13] MEDS: diphenhydrAMINE 50MG CAP PO PRN (21:19)
[2022-07-13] MEDS: LORazepam 1 MG TAB PO PRN (21:19)
[2022-07-13] MEDS: traZODone 50 MG TAB PO PRN (23:40)
[2022-07-14] MEDS: NICOTINE POLACRILEX 2 MG GUM PO PRN ×3 (02:06→13:51)
[2022-07-14] MEDS: IBUPROFEN 400MG TAB PO PRN ×2 (02:10→20:52)
[2022-07-14 06:46] VITALS: BP 146/97
[2022-07-14] MEDS: BENZTROPINE 1 MG TAB PO SCH ×2 (08:48→20:50)
[2022-07-14] MEDS: ASPIRIN 81MG ENTERIC TABLET PO SCH (08:48)
[2022-07-14] MEDS: SODIUM CHLORIDE NASAL 0.65% SPRAY BTL (OCEAN) SCH ×3 (08:52→20:53)
[2022-07-14] MEDS: DOCUSATE SODIUM 100MG CAPSULE PO SCH ×2 (08:52→20:52)
[2022-07-14] MEDS: POLYVINYL ALCOHOL OPHTH SOLN 15ML (LIQUITEARS) OU SCH ×3 (08:52→20:53)
[2022-07-14] MEDS: VALPROIC ACID 250MG CAP PO SCH ×2 (09:00→20:52)
[2022-07-14] MEDS: FUROSEMIDE 20 MG TAB PO SCH ×2 (09:00→15:53)
[2022-07-14] MEDS: PROPRANOLOL 10 MG TAB PO SCH ×2 (09:00→20:53)
[2022-07-14] MEDS: PANTOPRAZOLE 40MG TAB (PROTONIX) PO SCH (09:00)
[2022-07-14] MEDS: fluPHENAZine 5MG TABLET PO SCH ×2 (09:00→20:53)
[2022-07-14] MEDS: ASCORBIC ACID 500 MG TAB PO SCH (09:00)
[2022-07-14] MEDS: GABAPENTIN 300 MG CAP PO SCH ×3 (09:00→20:53)
[2022-07-14] MEDS: diphenhydrAMINE 50MG CAP PO PRN (15:54)
[2022-07-14] MEDS: LORazepam 1 MG TAB PO PRN (15:55)
[2022-07-14] MEDS: NICOTINE 14 MG/24 HR TRANSDERMAL TD SCH (16:19)
[2022-07-14 20:36] VITALS: BP 170/92
[2022-07-14] MEDS: traZODone 50 MG TAB PO PRN (20:50)
[2022-07-14] MEDS: TAMSULOSIN 0.4 MG CAP PO SCH (20:53)
[2022-07-15 06:37] VITALS: BP 142/90
[2022-07-15 07:17] LABS: ALBUMIN 3.5 G/DL (3.2-5.2); ALKALINE PHOSPHATASE 57 U/L (46-116); ALT/SGPT 17 U/L (7.0-40); AST/SGOT 18 U/L (<34); BILIRUBIN,TOTAL 0.3 MG/DL (0.3-1.2); BLOOD UREA NITROGEN 10 MG/DL (9-23); CARBON DIOXIDE LEVEL 30 MMOL/L (20-31); CHLORIDE LEVEL 106 MMOL/L (98-107); CREATININE FOR GFR 0.69 MG/DL (0.70-1.30); GLOMERULAR FILTRATION RATE > 60.0 (>56); GLUCOSE, FASTING 88 MG/DL (60-100); POTASSIUM SERUM 4.3 MMOL/L (3.5-5.1); SODIUM LEVEL 140 MMOL/L (136-145)
[2022-07-15] MEDS: FUROSEMIDE 20 MG TAB PO SCH (07:43)
[2022-07-15] MEDS: BENZTROPINE 1 MG TAB PO SCH ×2 (07:43→21:22)
[2022-07-15] MEDS: ASPIRIN 81MG ENTERIC TABLET PO SCH (07:44)
[2022-07-15] MEDS: PROPRANOLOL 10 MG TAB PO SCH ×2 (07:44→21:23)
[2022-07-15] MEDS: DOCUSATE SODIUM 100MG CAPSULE PO SCH ×2 (07:47→21:00)
[2022-07-15] MEDS: fluPHENAZine 5MG TABLET PO SCH ×2 (07:47→21:00)
[2022-07-15] MEDS: VALPROIC ACID 250MG CAP PO SCH ×2 (07:47→21:00)
[2022-07-15] MEDS: GABAPENTIN 300 MG CAP PO SCH ×3 (07:47→21:00)
[2022-07-15] MEDS: SODIUM CHLORIDE NASAL 0.65% SPRAY BTL (OCEAN) SCH ×3 (07:48→21:00)
[2022-07-15] MEDS: POLYVINYL ALCOHOL OPHTH SOLN 15ML (LIQUITEARS) OU SCH ×3 (07:48→21:00)
[2022-07-15] MEDS: ASCORBIC ACID 500 MG TAB PO SCH (07:48)
[2022-07-15] MEDS: PANTOPRAZOLE 40MG TAB (PROTONIX) PO SCH (07:48)
[2022-07-15] MEDS: NICOTINE 14 MG/24 HR TRANSDERMAL TD SCH (07:49)
[2022-07-15] MEDS ORDERED: NICOTINE 14 MG/24 HR TRANSDERMAL TD SCH (09:00)
[2022-07-15 17:35] VITALS: BP 158/92
[2022-07-15] MEDS: TAMSULOSIN 0.4 MG CAP PO SCH (21:00)
[2022-07-15] MEDS: LORazepam 1 MG TAB PO PRN (21:23)
[2022-07-15] MEDS: IBUPROFEN 400MG TAB PO PRN (21:23)
[2022-07-15] MEDS: diphenhydrAMINE 50MG CAP PO PRN (21:23)
[2022-07-15] MEDS: traZODone 50 MG TAB PO PRN (22:22)
[2022-07-16 06:42] VITALS: BP 135/82
[2022-07-16] MEDS: ASPIRIN 81MG ENTERIC TABLET PO SCH (06:51)
[2022-07-16] MEDS: FUROSEMIDE 20 MG TAB PO SCH (06:51)
[2022-07-16] MEDS: PROPRANOLOL 10 MG TAB PO SCH ×2 (06:51→21:00)
[2022-07-16] MEDS: BENZTROPINE 1 MG TAB PO SCH ×2 (06:51→21:00)
[2022-07-16] MEDS: NICOTINE 14 MG/24 HR TRANSDERMAL TD SCH (06:52)
[2022-07-16] MEDS: SODIUM CHLORIDE NASAL 0.65% SPRAY BTL (OCEAN) SCH ×3 (06:58→21:00)
[2022-07-16] MEDS: PANTOPRAZOLE 40MG TAB (PROTONIX) PO SCH (06:58)
[2022-07-16] MEDS: ASCORBIC ACID 500 MG TAB PO SCH (06:58)
[2022-07-16] MEDS: POLYVINYL ALCOHOL OPHTH SOLN 15ML (LIQUITEARS) OU SCH ×3 (06:58→21:00)
[2022-07-16] MEDS: GABAPENTIN 300 MG CAP PO SCH ×3 (06:58→21:00)
[2022-07-16] MEDS: fluPHENAZine 5MG TABLET PO SCH ×2 (06:58→21:00)
[2022-07-16] MEDS: VALPROIC ACID 250MG CAP PO SCH ×2 (06:59→21:00)
[2022-07-16] MEDS: DOCUSATE SODIUM 100MG CAPSULE PO SCH ×2 (06:59→21:00)
[2022-07-16] MEDS: IBUPROFEN 400MG TAB PO PRN (15:09)
[2022-07-16 16:52] VITALS: BP 156/96
[2022-07-16] MEDS: traZODone 50 MG TAB PO PRN (20:59)
[2022-07-16] MEDS: diphenhydrAMINE 50MG CAP PO PRN (20:59)
[2022-07-16] MEDS: LORazepam 1 MG TAB PO PRN (21:00)
[2022-07-16] MEDS: TAMSULOSIN 0.4 MG CAP PO SCH (21:00)
[2022-07-17 06:29] VITALS: BP_SYST 119; BP_SYST 144; BP_DIAS 71; BP_DIAS 90
[2022-07-17] MEDS: BENZTROPINE 1 MG TAB PO SCH ×2 (07:25→20:58)
[2022-07-17] MEDS: NICOTINE 14 MG/24 HR TRANSDERMAL TD SCH (07:25)
[2022-07-17] MEDS: PROPRANOLOL 10 MG TAB PO SCH ×2 (07:26→20:59)
[2022-07-17] MEDS: ASPIRIN 81MG ENTERIC TABLET PO SCH (07:26)
[2022-07-17] MEDS: FUROSEMIDE 20 MG TAB PO SCH (07:26)
[2022-07-17] MEDS: **PENDING PPD ENTRY XX SCH (09:00)
[2022-07-17] MEDS: SODIUM CHLORIDE NASAL 0.65% SPRAY BTL (OCEAN) SCH ×3 (09:00→20:59)
[2022-07-17] MEDS: GABAPENTIN 300 MG CAP PO SCH ×3 (09:00→20:59)
[2022-07-17] MEDS: VALPROIC ACID 250MG CAP PO SCH ×2 (09:00→20:58)
[2022-07-17] MEDS: ASCORBIC ACID 500 MG TAB PO SCH (09:00)
[2022-07-17] MEDS: PANTOPRAZOLE 40MG TAB (PROTONIX) PO SCH (09:00)
[2022-07-17] MEDS: DOCUSATE SODIUM 100MG CAPSULE PO SCH ×2 (09:00→20:58)
[2022-07-17] MEDS: fluPHENAZine 5MG TABLET PO SCH ×2 (09:00→20:59)
[2022-07-17] MEDS: POLYVINYL ALCOHOL OPHTH SOLN 15ML (LIQUITEARS) OU SCH ×3 (09:00→20:59)
[2022-07-17] MEDS: IBUPROFEN 400MG TAB PO PRN (10:06)
[2022-07-17 16:21] VITALS: BP 148/90
[2022-07-17] MEDS: TAMSULOSIN 0.4 MG CAP PO SCH (20:58)
[2022-07-17] MEDS: diphenhydrAMINE 50MG CAP PO PRN (21:05)
[2022-07-17] MEDS: traZODone 50 MG TAB PO PRN (21:05)
[2022-07-17] MEDS: LORazepam 1 MG TAB PO PRN (21:07)
[2022-07-18] MEDS ORDERED: IBUPROFEN 400MG TAB As Ordered ONE (04:07)
[2022-07-18 07:01] VITALS: BP 158/90
[2022-07-18] MEDS: ASCORBIC ACID 500 MG TAB PO SCH (08:38)
[2022-07-18] MEDS: ASPIRIN 81MG ENTERIC TABLET PO SCH (08:38)
[2022-07-18] MEDS: BENZTROPINE 1 MG TAB PO SCH ×2 (08:38→20:06)
[2022-07-18] MEDS: NICOTINE 14 MG/24 HR TRANSDERMAL TD SCH (08:39)
[2022-07-18] MEDS: FUROSEMIDE 20 MG TAB PO SCH (08:39)
[2022-07-18] MEDS: PROPRANOLOL 10 MG TAB PO SCH ×2 (08:39→20:06)
[2022-07-18] MEDS: PANTOPRAZOLE 40MG TAB (PROTONIX) PO SCH (08:39)
[2022-07-18] MEDS: GABAPENTIN 300 MG CAP PO SCH ×3 (09:00→20:07)
[2022-07-18] MEDS: **PENDING PPD ENTRY XX SCH (09:00)
[2022-07-18] MEDS: SODIUM CHLORIDE NASAL 0.65% SPRAY BTL (OCEAN) SCH ×3 (09:00→20:07)
[2022-07-18] MEDS: POLYVINYL ALCOHOL OPHTH SOLN 15ML (LIQUITEARS) OU SCH ×3 (09:00→20:07)
[2022-07-18] MEDS: DOCUSATE SODIUM 100MG CAPSULE PO SCH ×2 (09:00→20:06)
[2022-07-18] MEDS: fluPHENAZine 5MG TABLET PO SCH ×3 (09:00→20:07)
[2022-07-18] MEDS: VALPROIC ACID 250MG CAP PO SCH ×3 (09:00→22:49)
[2022-07-18] MEDS ORDERED: TUBERCULIN PPD 5 UNITS/0.1 ML ID ONE (10:00)
[2022-07-18] MEDS: IBUPROFEN 400MG TAB PO PRN (16:41)
[2022-07-18 18:22] VITALS: BP 160/90
[2022-07-18] MEDS: traZODone 50 MG TAB PO PRN (20:03)
[2022-07-18] MEDS: LORazepam 1 MG TAB PO PRN (20:04)
[2022-07-18] MEDS: diphenhydrAMINE 50MG CAP PO PRN (20:04)
[2022-07-18] MEDS: TAMSULOSIN 0.4 MG CAP PO SCH (20:06)
[2022-07-19 06:05] VITALS: BP 142/100
[2022-07-19] MEDS: IBUPROFEN 400MG TAB PO PRN (06:51)
[2022-07-19] MEDS: NICOTINE 14 MG/24 HR TRANSDERMAL TD SCH (08:43)
[2022-07-19] MEDS: VALPROIC ACID 250MG CAP PO SCH ×2 (08:43→20:18)
[2022-07-19] MEDS: BENZTROPINE 1 MG TAB PO SCH ×2 (08:44→20:19)
[2022-07-19] MEDS: ASPIRIN 81MG ENTERIC TABLET PO SCH (08:44)
[2022-07-19] MEDS: PROPRANOLOL 10 MG TAB PO SCH ×2 (08:44→20:19)
[2022-07-19] MEDS: DOCUSATE SODIUM 100MG CAPSULE PO SCH ×2 (08:44→20:19)
[2022-07-19] MEDS: GABAPENTIN 300 MG CAP PO SCH ×3 (08:44→20:18)
[2022-07-19] MEDS: PANTOPRAZOLE 40MG TAB (PROTONIX) PO SCH (08:44)
[2022-07-19] MEDS: FUROSEMIDE 20 MG TAB PO SCH (08:44)
[2022-07-19] MEDS: fluPHENAZine 5MG TABLET PO SCH ×2 (08:44→20:19)
[2022-07-19] MEDS: ASCORBIC ACID 500 MG TAB PO SCH (08:45)
[2022-07-19] MEDS: POLYVINYL ALCOHOL OPHTH SOLN 15ML (LIQUITEARS) OU SCH ×3 (08:49→20:21)
[2022-07-19] MEDS: SODIUM CHLORIDE NASAL 0.65% SPRAY BTL (OCEAN) SCH ×3 (08:49→20:21)
[2022-07-19] MEDS ORDERED: fluPHENAZine DECAN 25MG/ML 5ML VIAL IM SCH (09:00)
[2022-07-19] MEDS ORDERED: PPD DOCUMENTATION ENTRY MISC XX SCH (10:00)
[2022-07-19] MEDS ORDERED: TUBERCULIN PPD 5 UNITS/0.1 ML ID ONE (12:00)
[2022-07-19] MEDS: diphenhydrAMINE 50MG CAP PO PRN (15:56)
[2022-07-19 16:46] VITALS: BP 156/94
[2022-07-19] MEDS: NICOTINE POLACRILEX 2 MG GUM PO PRN (17:03)
[2022-07-19] MEDS: TAMSULOSIN 0.4 MG CAP PO SCH (20:19)
[2022-07-20 06:36] VITALS: BP 140/84
[2022-07-20] MEDS: IBUPROFEN 400MG TAB PO PRN (06:56)
[2022-07-20] MEDS: VALPROIC ACID 250MG CAP PO SCH ×2 (09:13→20:31)
[2022-07-20] MEDS: DOCUSATE SODIUM 100MG CAPSULE PO SCH ×2 (09:13→20:31)
[2022-07-20] MEDS: BENZTROPINE 1 MG TAB PO SCH ×2 (09:14→20:31)
[2022-07-20] MEDS: PROPRANOLOL 10 MG TAB PO SCH ×2 (09:14→20:33)
[2022-07-20] MEDS: GABAPENTIN 300 MG CAP PO SCH ×3 (09:14→20:31)
[2022-07-20] MEDS: PANTOPRAZOLE 40MG TAB (PROTONIX) PO SCH (09:14)
[2022-07-20] MEDS: ASPIRIN 81MG ENTERIC TABLET PO SCH (09:14)
[2022-07-20] MEDS: ASCORBIC ACID 500 MG TAB PO SCH (09:15)
[2022-07-20] MEDS: fluPHENAZine 5MG TABLET PO SCH ×2 (09:15→20:31)
[2022-07-20] MEDS: FUROSEMIDE 20 MG TAB PO SCH (09:15)
[2022-07-20] MEDS: NICOTINE POLACRILEX 2 MG GUM PO PRN ×3 (10:03→20:45)
[2022-07-20] MEDS: SODIUM CHLORIDE NASAL 0.65% SPRAY BTL (OCEAN) SCH ×3 (12:11→20:33)
[2022-07-20] MEDS: POLYVINYL ALCOHOL OPHTH SOLN 15ML (LIQUITEARS) OU SCH ×3 (12:12→20:33)
[2022-07-20 16:57] VITALS: BP 156/88
[2022-07-20] MEDS: TAMSULOSIN 0.4 MG CAP PO SCH (20:30)
[2022-07-21] MEDS: diphenhydrAMINE 50MG CAP PO PRN
[2022-07-21] MEDS: NICOTINE POLACRILEX 2 MG GUM PO PRN ×4 (02:11→21:14)
[2022-07-21] MEDS: FUROSEMIDE 20 MG TAB PO SCH (08:24)
[2022-07-21] MEDS: ASPIRIN 81MG ENTERIC TABLET PO SCH (08:24)
[2022-07-21] MEDS: DOCUSATE SODIUM 100MG CAPSULE PO SCH ×2 (08:24→21:00)
[2022-07-21] MEDS: fluPHENAZine 5MG TABLET PO SCH ×2 (08:25→21:00)
[2022-07-21] MEDS: PANTOPRAZOLE 40MG TAB (PROTONIX) PO SCH (08:25)
[2022-07-21] MEDS: GABAPENTIN 300 MG CAP PO SCH ×3 (08:25→21:01)
[2022-07-21] MEDS: BENZTROPINE 1 MG TAB PO SCH ×2 (08:25→21:00)
[2022-07-21] MEDS: VALPROIC ACID 250MG CAP PO SCH ×2 (08:25→21:01)
[2022-07-21] MEDS: SODIUM CHLORIDE NASAL 0.65% SPRAY BTL (OCEAN) SCH ×4 (08:26→22:08)
[2022-07-21] MEDS: POLYVINYL ALCOHOL OPHTH SOLN 15ML (LIQUITEARS) OU SCH ×4 (08:26→22:08)
[2022-07-21] MEDS: ASCORBIC ACID 500 MG TAB PO SCH (08:26)
[2022-07-21] MEDS: PROPRANOLOL 10 MG TAB PO SCH ×2 (08:28→21:01)
[2022-07-21] MEDS: IBUPROFEN 400MG TAB PO PRN ×2 (10:50→22:01)
[2022-07-21] MEDS ORDERED: PPD DOCUMENTATION ENTRY MISC XX ONE (12:00)
[2022-07-21] MEDS: MAALOX 30 ML SUSP *UDC PO PRN (14:37)
[2022-07-21] MEDS: MOM 30ML SUSPENSION UDC PO PRN (15:17)
[2022-07-21 16:26] VITALS: BP 150/86
[2022-07-21] MEDS: TAMSULOSIN 0.4 MG CAP PO SCH (21:01)
[2022-07-22] MEDS: NICOTINE POLACRILEX 2 MG GUM PO PRN ×2 (02:49→10:51)
[2022-07-22] MEDS: diphenhydrAMINE 50MG CAP PO PRN (04:24)
[2022-07-22 06:26] VITALS: BP 134/81
[2022-07-22] MEDS: ASPIRIN 81MG ENTERIC TABLET PO SCH (09:00)
[2022-07-22] MEDS: VALPROIC ACID 250MG CAP PO SCH ×2 (09:00→21:00)
[2022-07-22] MEDS: SODIUM CHLORIDE NASAL 0.65% SPRAY BTL (OCEAN) SCH ×3 (09:00→21:00)
[2022-07-22] MEDS: PROPRANOLOL 10 MG TAB PO SCH ×2 (09:00→21:00)
[2022-07-22] MEDS: PANTOPRAZOLE 40MG TAB (PROTONIX) PO SCH (09:00)
[2022-07-22] MEDS: GABAPENTIN 300 MG CAP PO SCH ×3 (09:00→21:00)
[2022-07-22] MEDS: FUROSEMIDE 20 MG TAB PO SCH (09:00)
[2022-07-22] MEDS: fluPHENAZine 5MG TABLET PO SCH ×2 (09:00→21:00)
[2022-07-22] MEDS: BENZTROPINE 1 MG TAB PO SCH ×2 (09:00→21:00)
[2022-07-22] MEDS: ASCORBIC ACID 500 MG TAB PO SCH (09:00)
[2022-07-22] MEDS: DOCUSATE SODIUM 100MG CAPSULE PO SCH ×2 (09:00→21:00)
[2022-07-22] MEDS: POLYVINYL ALCOHOL OPHTH SOLN 15ML (LIQUITEARS) OU SCH ×3 (09:00→21:00)
[2022-07-22] MEDS: IBUPROFEN 400MG TAB PO PRN (10:31)
[2022-07-22] MEDS: NICOTINE 14 MG/24 HR TRANSDERMAL TD SCH (15:13)
[2022-07-22] MEDS: TAMSULOSIN 0.4 MG CAP PO SCH (21:00)
[2022-07-23] MEDS: IBUPROFEN 400MG TAB PO PRN ×2 (00:07→14:58)
[2022-07-23] MEDS: POLYVINYL ALCOHOL OPHTH SOLN 15ML (LIQUITEARS) OU SCH ×5 (00:37→21:00)
[2022-07-23] MEDS: SODIUM CHLORIDE NASAL 0.65% SPRAY BTL (OCEAN) SCH ×5 (00:37→21:00)
[2022-07-23] MEDS: NICOTINE 14 MG/24 HR TRANSDERMAL TD SCH (08:35)
[2022-07-23] MEDS: VALPROIC ACID 250MG CAP PO SCH ×2 (08:56→21:00)
[2022-07-23] MEDS: fluPHENAZine 5MG TABLET PO SCH ×2 (08:56→21:00)
[2022-07-23] MEDS: PANTOPRAZOLE 40MG TAB (PROTONIX) PO SCH (08:56)
[2022-07-23] MEDS: ASPIRIN 81MG ENTERIC TABLET PO SCH ×2 (08:56→10:26)
[2022-07-23] MEDS: PROPRANOLOL 10 MG TAB PO SCH ×3 (08:56→21:00)
[2022-07-23] MEDS: DOCUSATE SODIUM 100MG CAPSULE PO SCH ×2 (08:56→21:00)
[2022-07-23] MEDS: GABAPENTIN 300 MG CAP PO SCH ×3 (08:56→21:00)
[2022-07-23] MEDS: FUROSEMIDE 20 MG TAB PO SCH ×2 (08:56→10:26)
[2022-07-23] MEDS: BENZTROPINE 1 MG TAB PO SCH ×3 (08:56→21:00)
[2022-07-23] MEDS: ASCORBIC ACID 500 MG TAB PO SCH (08:57)
[2022-07-23] MEDS: diphenhydrAMINE 50MG CAP PO PRN (15:40)
[2022-07-23] MEDS: LORazepam 1 MG TAB PO PRN (15:40)
[2022-07-23] MEDS: traZODone 50 MG TAB PO PRN (20:33)
[2022-07-23] MEDS: MOM 30ML SUSPENSION UDC PO PRN (20:49)
[2022-07-23] MEDS: MAALOX 30 ML SUSP *UDC PO PRN (20:49)
[2022-07-23] MEDS: TAMSULOSIN 0.4 MG CAP PO SCH (21:00)
[2022-07-24 07:37] VITALS: BP 166/90
[2022-07-24] MEDS: ASPIRIN 81MG ENTERIC TABLET PO SCH (07:41)
[2022-07-24] MEDS: BENZTROPINE 1 MG TAB PO SCH ×2 (07:41→20:47)
[2022-07-24] MEDS: IBUPROFEN 400MG TAB PO PRN (07:42)
[2022-07-24] MEDS: PROPRANOLOL 10 MG TAB PO SCH ×2 (07:42→20:48)
[2022-07-24] MEDS: NICOTINE 14 MG/24 HR TRANSDERMAL TD SCH (07:42)
[2022-07-24] MEDS: VALPROIC ACID 250MG CAP PO SCH ×2 (09:00→20:47)
[2022-07-24] MEDS: fluPHENAZine 5MG TABLET PO SCH ×2 (09:00→20:48)
[2022-07-24] MEDS: PANTOPRAZOLE 40MG TAB (PROTONIX) PO SCH (09:00)
[2022-07-24] MEDS: DOCUSATE SODIUM 100MG CAPSULE PO SCH ×2 (09:00→20:47)
[2022-07-24] MEDS: GABAPENTIN 300 MG CAP PO SCH ×3 (09:00→20:48)
[2022-07-24] MEDS: POLYVINYL ALCOHOL OPHTH SOLN 15ML (LIQUITEARS) OU SCH ×3 (09:42→20:48)
[2022-07-24] MEDS: SODIUM CHLORIDE NASAL 0.65% SPRAY BTL (OCEAN) SCH ×3 (09:42→20:48)
[2022-07-24] MEDS: ASCORBIC ACID 500 MG TAB PO SCH (14:40)
[2022-07-24] MEDS: FUROSEMIDE 20 MG TAB PO SCH (14:41)
[2022-07-24] MEDS: diphenhydrAMINE 50MG CAP PO PRN (14:42)
[2022-07-24] MEDS: LORazepam 1 MG TAB PO PRN (14:44)
[2022-07-24] MEDS: MAALOX 30 ML SUSP *UDC PO PRN (16:50)
[2022-07-24] MEDS: traZODone 50 MG TAB PO PRN (20:45)
[2022-07-24] MEDS: TAMSULOSIN 0.4 MG CAP PO SCH (20:48)
[2022-07-24] MEDS: MOM 30ML SUSPENSION UDC PO PRN (21:23)
[2022-07-25] MEDS: FUROSEMIDE 20 MG TAB PO SCH (06:49)
[2022-07-25] MEDS: BENZTROPINE 1 MG TAB PO SCH ×2 (06:49→20:54)
[2022-07-25] MEDS: ASCORBIC ACID 500 MG TAB PO SCH (06:49)
[2022-07-25] MEDS: ASPIRIN 81MG ENTERIC TABLET PO SCH (06:49)
[2022-07-25] MEDS: PROPRANOLOL 10 MG TAB PO SCH ×2 (06:50→20:54)
[2022-07-25] MEDS: DOCUSATE SODIUM 100MG CAPSULE PO SCH ×2 (06:51→20:56)
[2022-07-25] MEDS: VALPROIC ACID 250MG CAP PO SCH ×4 (06:51→21:00)
[2022-07-25 06:52] VITALS: BP 156/92
[2022-07-25] MEDS: GABAPENTIN 300 MG CAP PO SCH ×3 (06:52→20:54)
[2022-07-25] MEDS: PANTOPRAZOLE 40MG TAB (PROTONIX) PO SCH (06:52)
[2022-07-25] MEDS: fluPHENAZine 5MG TABLET PO SCH ×2 (06:52→20:56)
[2022-07-25] MEDS: POLYVINYL ALCOHOL OPHTH SOLN 15ML (LIQUITEARS) OU SCH ×3 (06:53→20:56)
[2022-07-25] MEDS: SODIUM CHLORIDE NASAL 0.65% SPRAY BTL (OCEAN) SCH ×3 (06:53→20:56)
[2022-07-25] MEDS: NICOTINE 14 MG/24 HR TRANSDERMAL TD SCH (06:53)
[2022-07-25] MEDS: IBUPROFEN 400MG TAB PO PRN ×2 (09:58→16:49)
[2022-07-25] MEDS: diphenhydrAMINE 50MG CAP PO PRN (10:44)
[2022-07-25] MEDS: LORazepam 1 MG TAB PO PRN (10:44)
[2022-07-25] MEDS: MAALOX 30 ML SUSP *UDC PO PRN (20:55)
[2022-07-25] MEDS: TAMSULOSIN 0.4 MG CAP PO SCH (20:56)
[2022-07-26] MEDS: IBUPROFEN 400MG TAB PO PRN ×2 (04:10→11:21)
[2022-07-26 06:23] VITALS: BP 152/89
[2022-07-26] MEDS: ASPIRIN 81MG ENTERIC TABLET PO SCH (07:56)
[2022-07-26] MEDS: GABAPENTIN 300 MG CAP PO SCH ×3 (07:57→20:53)
[2022-07-26] MEDS: BENZTROPINE 1 MG TAB PO SCH ×2 (07:57→20:53)
[2022-07-26] MEDS: PROPRANOLOL 10 MG TAB PO SCH ×2 (07:57→20:53)
[2022-07-26] MEDS: FUROSEMIDE 20 MG TAB PO SCH (07:57)
[2022-07-26] MEDS: ASCORBIC ACID 500 MG TAB PO SCH (07:57)
[2022-07-26] MEDS: NICOTINE 14 MG/24 HR TRANSDERMAL TD SCH (08:56)
[2022-07-26] MEDS: PANTOPRAZOLE 40MG TAB (PROTONIX) PO SCH (09:00)
[2022-07-26] MEDS: POLYVINYL ALCOHOL OPHTH SOLN 15ML (LIQUITEARS) OU SCH ×3 (09:00→20:53)
[2022-07-26] MEDS: VALPROIC ACID 250MG CAP PO SCH ×2 (09:00→11:54)
[2022-07-26] MEDS: SODIUM CHLORIDE NASAL 0.65% SPRAY BTL (OCEAN) SCH ×3 (09:00→20:53)
[2022-07-26] MEDS: DOCUSATE SODIUM 100MG CAPSULE PO SCH ×2 (09:00→20:53)
[2022-07-26] MEDS: fluPHENAZine 5MG TABLET PO SCH ×3 (09:00→20:53)
[2022-07-26] MEDS: diphenhydrAMINE 50MG CAP PO PRN (14:25)
[2022-07-26] MEDS: LORazepam 1 MG TAB PO PRN (14:26)
[2022-07-26 18:38] VITALS: BP 150/90
[2022-07-26] MEDS: DIVALPROEX 500MG *ER* TAB PO SCH (20:53)
[2022-07-26] MEDS: TAMSULOSIN 0.4 MG CAP PO SCH (20:53)
[2022-07-27] MEDS: diphenhydrAMINE 50MG CAP PO PRN ×2 (01:18→12:15)
[2022-07-27] MEDS: LORazepam 1 MG TAB PO PRN ×2 (01:20→12:16)
[2022-07-27] MEDS: traZODone 50 MG TAB PO PRN ×2 (01:43→21:41)
[2022-07-27] MEDS: MOM 30ML SUSPENSION UDC PO PRN (03:17)
[2022-07-27 06:52] VITALS: BP 128/75
[2022-07-27] MEDS: DOCUSATE SODIUM 100MG CAPSULE PO SCH (07:42)
[2022-07-27] MEDS: ASPIRIN 81MG ENTERIC TABLET PO SCH (07:42)
[2022-07-27] MEDS: PANTOPRAZOLE 40MG TAB (PROTONIX) PO SCH (07:42)
[2022-07-27] MEDS: FUROSEMIDE 20 MG TAB PO SCH (07:42)
[2022-07-27] MEDS: PROPRANOLOL 10 MG TAB PO SCH ×2 (07:42→20:54)
[2022-07-27] MEDS: GABAPENTIN 300 MG CAP PO SCH ×3 (07:42→20:54)
[2022-07-27] MEDS: DIVALPROEX 500MG *ER* TAB PO SCH ×2 (07:43→20:54)
[2022-07-27] MEDS: BENZTROPINE 1 MG TAB PO SCH ×2 (07:44→20:54)
[2022-07-27] MEDS: fluPHENAZine 5MG TABLET PO SCH ×2 (07:44→20:54)
[2022-07-27] MEDS: ASCORBIC ACID 500 MG TAB PO SCH (07:44)
[2022-07-27] MEDS: NICOTINE 14 MG/24 HR TRANSDERMAL TD SCH (07:45)
[2022-07-27] MEDS: SODIUM CHLORIDE NASAL 0.65% SPRAY BTL (OCEAN) SCH ×3 (07:46→20:54)
[2022-07-27] MEDS: POLYVINYL ALCOHOL OPHTH SOLN 15ML (LIQUITEARS) OU SCH ×3 (07:47→20:54)
[2022-07-27] MEDS ORDERED: LOPERAMIDE 2 MG CAPLET PO PRN (11:30)
[2022-07-27] MEDS: IBUPROFEN 400MG TAB PO PRN (15:12)
[2022-07-27 18:23] VITALS: BP 143/76
[2022-07-27] MEDS ORDERED: ACETAMINOPHEN TAB 650MG DOSE (2X325MG) PO PRN (18:55)
[2022-07-27] MEDS: TAMSULOSIN 0.4 MG CAP PO SCH (20:54)
[2022-07-28 06:02] VITALS: BP 137/86
[2022-07-28] MEDS: ASCORBIC ACID 500 MG TAB PO SCH (08:41)
[2022-07-28] MEDS: ASPIRIN 81MG ENTERIC TABLET PO SCH (08:43)
[2022-07-28] MEDS: PROPRANOLOL 10 MG TAB PO SCH ×2 (08:43→19:57)
[2022-07-28] MEDS: FUROSEMIDE 20 MG TAB PO SCH (08:43)
[2022-07-28] MEDS: PANTOPRAZOLE 40MG TAB (PROTONIX) PO SCH (08:43)
[2022-07-28] MEDS: GABAPENTIN 300 MG CAP PO SCH ×3 (08:44→19:57)
[2022-07-28] MEDS: DIVALPROEX 500MG *ER* TAB PO SCH ×2 (08:44→19:56)
[2022-07-28] MEDS: BENZTROPINE 1 MG TAB PO SCH ×2 (08:44→19:56)
[2022-07-28] MEDS: fluPHENAZine 5MG TABLET PO SCH ×2 (08:44→19:57)
[2022-07-28] MEDS: NICOTINE 14 MG/24 HR TRANSDERMAL TD SCH (08:45)
[2022-07-28] MEDS: POLYVINYL ALCOHOL OPHTH SOLN 15ML (LIQUITEARS) OU SCH ×3 (08:50→22:26)
[2022-07-28] MEDS: SODIUM CHLORIDE NASAL 0.65% SPRAY BTL (OCEAN) SCH ×3 (08:50→22:26)
[2022-07-28] MEDS: diphenhydrAMINE 50MG CAP PO PRN ×2 (10:37→21:33)
[2022-07-28] MEDS: LORazepam 1 MG TAB PO PRN ×2 (10:37→21:33)
[2022-07-28 16:44] VITALS: BP 144/62
[2022-07-28] MEDS: TAMSULOSIN 0.4 MG CAP PO SCH (19:56)
[2022-07-28] MEDS: traZODone 50 MG TAB PO PRN (22:27)
[2022-07-29] MEDS: IBUPROFEN 400MG TAB PO PRN ×2 (03:24→15:46)
[2022-07-29 06:20] VITALS: BP 131/77
[2022-07-29] MEDS: fluPHENAZine 5MG TABLET PO SCH ×2 (08:45→19:55)
[2022-07-29] MEDS: GABAPENTIN 300 MG CAP PO SCH ×3 (08:45→19:56)
[2022-07-29] MEDS: PANTOPRAZOLE 40MG TAB (PROTONIX) PO SCH (08:45)
[2022-07-29] MEDS: ASPIRIN 81MG ENTERIC TABLET PO SCH (08:48)
[2022-07-29] MEDS: FUROSEMIDE 20 MG TAB PO SCH (08:48)
[2022-07-29] MEDS: BENZTROPINE 1 MG TAB PO SCH ×2 (08:48→19:56)
[2022-07-29] MEDS: ASCORBIC ACID 500 MG TAB PO SCH (08:48)
[2022-07-29] MEDS: DIVALPROEX 500MG *ER* TAB PO SCH ×2 (08:48→19:56)
[2022-07-29] MEDS: PROPRANOLOL 10 MG TAB PO SCH ×2 (08:52→19:56)
[2022-07-29] MEDS: POLYVINYL ALCOHOL OPHTH SOLN 15ML (LIQUITEARS) OU SCH ×3 (08:58→21:02)
[2022-07-29] MEDS: NICOTINE 14 MG/24 HR TRANSDERMAL TD SCH (08:58)
[2022-07-29] MEDS: SODIUM CHLORIDE NASAL 0.65% SPRAY BTL (OCEAN) SCH ×3 (08:58→21:03)
[2022-07-29] MEDS: LORazepam 1 MG TAB PO PRN ×2 (12:26→21:01)
[2022-07-29] MEDS: diphenhydrAMINE 50MG CAP PO PRN ×2 (12:26→21:00)
[2022-07-29 17:13] VITALS: BP 153/85
[2022-07-29] MEDS: TAMSULOSIN 0.4 MG CAP PO SCH (19:56)
[2022-07-29] MEDS: traZODone 50 MG TAB PO PRN (21:40)
[2022-07-30 06:50] VITALS: BP 157/82
[2022-07-30] MEDS: POLYVINYL ALCOHOL OPHTH SOLN 15ML (LIQUITEARS) OU SCH ×3 (09:00→20:19)
[2022-07-30] MEDS: SODIUM CHLORIDE NASAL 0.65% SPRAY BTL (OCEAN) SCH ×3 (09:00→20:19)
[2022-07-30] MEDS: NICOTINE 14 MG/24 HR TRANSDERMAL TD SCH ×2 (09:00→10:54)
[2022-07-30] MEDS: GABAPENTIN 300 MG CAP PO SCH ×3 (09:05→20:19)
[2022-07-30] MEDS: BENZTROPINE 1 MG TAB PO SCH ×2 (09:05→20:19)
[2022-07-30] MEDS: ASPIRIN 81MG ENTERIC TABLET PO SCH (09:05)
[2022-07-30] MEDS: DIVALPROEX 500MG *ER* TAB PO SCH ×2 (09:07→20:19)
[2022-07-30] MEDS: PANTOPRAZOLE 40MG TAB (PROTONIX) PO SCH (09:07)
[2022-07-30] MEDS: fluPHENAZine 5MG TABLET PO SCH ×2 (09:07→20:19)
[2022-07-30] MEDS: ASCORBIC ACID 500 MG TAB PO SCH (09:07)
[2022-07-30] MEDS: FUROSEMIDE 20 MG TAB PO SCH (09:07)
[2022-07-30] MEDS: PROPRANOLOL 10 MG TAB PO SCH ×2 (09:08→20:20)
[2022-07-30] MEDS: IBUPROFEN 400MG TAB PO PRN ×2 (11:01→17:23)
[2022-07-30] MEDS: diphenhydrAMINE 50MG CAP PO PRN ×2 (13:09→21:24)
[2022-07-30] MEDS: LORazepam 1 MG TAB PO PRN ×2 (13:09→21:24)
[2022-07-30 17:26] VITALS: BP 141/84
[2022-07-30] MEDS: TAMSULOSIN 0.4 MG CAP PO SCH (20:19)
[2022-07-31] MEDS: POLYVINYL ALCOHOL OPHTH SOLN 15ML (LIQUITEARS) OU SCH ×3 (08:36→21:51)
[2022-07-31] MEDS: SODIUM CHLORIDE NASAL 0.65% SPRAY BTL (OCEAN) SCH ×3 (08:36→21:51)
[2022-07-31] MEDS: BENZTROPINE 1 MG TAB PO SCH ×2 (08:37→21:51)
[2022-07-31] MEDS: GABAPENTIN 300 MG CAP PO SCH ×3 (08:37→21:50)
[2022-07-31] MEDS: ASCORBIC ACID 500 MG TAB PO SCH (08:37)
[2022-07-31] MEDS: fluPHENAZine 5MG TABLET PO SCH ×2 (08:38→21:50)
[2022-07-31] MEDS: PANTOPRAZOLE 40MG TAB (PROTONIX) PO SCH (08:38)
[2022-07-31] MEDS: FUROSEMIDE 20 MG TAB PO SCH (08:38)
[2022-07-31] MEDS: ASPIRIN 81MG ENTERIC TABLET PO SCH (08:38)
[2022-07-31] MEDS: DIVALPROEX 500MG *ER* TAB PO SCH ×2 (08:38→21:49)
[2022-07-31] MEDS: NICOTINE 14 MG/24 HR TRANSDERMAL TD SCH (08:46)
[2022-07-31] MEDS: PROPRANOLOL 10 MG TAB PO SCH ×2 (08:46→21:50)
[2022-07-31] MEDS: fluPHENAZine DECAN 25MG/ML 5ML VIAL IM SCH (09:38)
[2022-07-31] MEDS: IBUPROFEN 400MG TAB PO PRN ×2 (09:49→15:24)
[2022-07-31] MEDS: diphenhydrAMINE 50MG CAP PO PRN ×2 (13:41→22:52)
[2022-07-31] MEDS: LORazepam 1 MG TAB PO PRN ×2 (13:42→22:52)
[2022-07-31] MEDS: NICOTINE POLACRILEX 2 MG GUM PO PRN ×2 (16:20→21:57)
[2022-07-31 16:25] VITALS: BP 154/94
[2022-07-31] MEDS: TAMSULOSIN 0.4 MG CAP PO SCH (21:49)
[2022-08-01] MEDS: traZODone 50 MG TAB PO PRN (00:29)
[2022-08-01] MEDS: NICOTINE POLACRILEX 2 MG GUM PO PRN ×4 (04:06→21:22)
[2022-08-01] MEDS: IBUPROFEN 400MG TAB PO PRN ×2 (04:13→15:52)
[2022-08-01 04:58] VITALS: BP 146/84
[2022-08-01] MEDS: ASPIRIN 81MG ENTERIC TABLET PO SCH (09:00)
[2022-08-01] MEDS: POLYVINYL ALCOHOL OPHTH SOLN 15ML (LIQUITEARS) OU SCH ×3 (09:00→21:00)
[2022-08-01] MEDS: SODIUM CHLORIDE NASAL 0.65% SPRAY BTL (OCEAN) SCH ×3 (09:00→21:00)
[2022-08-01] MEDS: GABAPENTIN 300 MG CAP PO SCH ×3 (09:00→21:19)
[2022-08-01] MEDS: DIVALPROEX 500MG *ER* TAB PO SCH ×2 (09:01→21:19)
[2022-08-01] MEDS: FUROSEMIDE 20 MG TAB PO SCH (09:02)
[2022-08-01] MEDS: PANTOPRAZOLE 40MG TAB (PROTONIX) PO SCH (09:02)
[2022-08-01] MEDS: fluPHENAZine 5MG TABLET PO SCH ×2 (09:03→21:19)
[2022-08-01] MEDS: ASCORBIC ACID 500 MG TAB PO SCH (09:03)
[2022-08-01] MEDS: PROPRANOLOL 10 MG TAB PO SCH ×2 (09:04→21:19)
[2022-08-01] MEDS: BENZTROPINE 1 MG TAB PO SCH ×2 (09:18→21:19)
[2022-08-01] MEDS: LORazepam 1 MG TAB PO PRN (11:08)
[2022-08-01] MEDS: diphenhydrAMINE 50MG CAP PO PRN (11:08)
[2022-08-01 19:02] VITALS: BP 143/92
[2022-08-01] MEDS: TAMSULOSIN 0.4 MG CAP PO SCH (21:19)
[2022-08-02] MEDS: NICOTINE POLACRILEX 2 MG GUM PO PRN ×3 (01:32→22:46)
[2022-08-02] MEDS: diphenhydrAMINE 50MG CAP PO PRN ×2 (03:44→13:27)
[2022-08-02] MEDS: LORazepam 1 MG TAB PO PRN ×2 (03:46→13:27)
[2022-08-02] MEDS: IBUPROFEN 400MG TAB PO PRN ×2 (03:56→13:28)
[2022-08-02] MEDS: SODIUM CHLORIDE NASAL 0.65% SPRAY BTL (OCEAN) SCH ×3 (09:00→21:00)
[2022-08-02] MEDS: fluPHENAZine 5MG TABLET PO SCH ×2 (09:50→20:01)
[2022-08-02] MEDS: ASPIRIN 81MG ENTERIC TABLET PO SCH (09:50)
[2022-08-02] MEDS: FUROSEMIDE 20 MG TAB PO SCH (09:50)
[2022-08-02] MEDS: DIVALPROEX 500MG *ER* TAB PO SCH ×2 (09:50→20:01)
[2022-08-02] MEDS: BENZTROPINE 1 MG TAB PO SCH ×2 (09:50→20:02)
[2022-08-02] MEDS: ASCORBIC ACID 500 MG TAB PO SCH (09:51)
[2022-08-02] MEDS: GABAPENTIN 300 MG CAP PO SCH ×3 (09:51→20:02)
[2022-08-02] MEDS: PANTOPRAZOLE 40MG TAB (PROTONIX) PO SCH (09:51)
[2022-08-02] MEDS: PROPRANOLOL 10 MG TAB PO SCH ×2 (09:51→20:02)
[2022-08-02] MEDS: POLYVINYL ALCOHOL OPHTH SOLN 15ML (LIQUITEARS) OU SCH ×3 (10:08→21:00)
[2022-08-02] MEDS: CEPACOL LOZENGE PO PRN ×2 (16:30→22:46)
[2022-08-02] MEDS: TAMSULOSIN 0.4 MG CAP PO SCH (20:02)
[2022-08-03] MEDS: LORazepam 1 MG TAB PO PRN ×2 (00:09→12:07)
[2022-08-03] MEDS: IBUPROFEN 400MG TAB PO PRN ×2 (00:09→12:08)
[2022-08-03] MEDS: diphenhydrAMINE 50MG CAP PO PRN ×2 (00:09→12:07)
[2022-08-03] MEDS: FUROSEMIDE 20 MG TAB PO SCH (08:26)
[2022-08-03] MEDS: BENZTROPINE 1 MG TAB PO SCH ×2 (08:26→20:36)
[2022-08-03] MEDS: PANTOPRAZOLE 40MG TAB (PROTONIX) PO SCH (08:26)
[2022-08-03] MEDS: fluPHENAZine 5MG TABLET PO SCH ×2 (08:26→20:36)
[2022-08-03] MEDS: GABAPENTIN 300 MG CAP PO SCH ×3 (08:27→20:36)
[2022-08-03] MEDS: DIVALPROEX 500MG *ER* TAB PO SCH ×2 (08:27→20:36)
[2022-08-03] MEDS: ASCORBIC ACID 500 MG TAB PO SCH (08:28)
[2022-08-03] MEDS: ASPIRIN 81MG ENTERIC TABLET PO SCH (08:28)
[2022-08-03] MEDS: PROPRANOLOL 10 MG TAB PO SCH ×2 (08:28→20:36)
[2022-08-03] MEDS: SODIUM CHLORIDE NASAL 0.65% SPRAY BTL (OCEAN) SCH ×3 (08:28→20:37)
[2022-08-03] MEDS: POLYVINYL ALCOHOL OPHTH SOLN 15ML (LIQUITEARS) OU SCH ×3 (08:28→20:37)
[2022-08-03] MEDS: CEPACOL LOZENGE PO PRN ×2 (08:31→18:16)
[2022-08-03] MEDS: NICOTINE POLACRILEX 2 MG GUM PO PRN ×3 (11:03→22:36)
[2022-08-03] MEDS: TAMSULOSIN 0.4 MG CAP PO SCH (20:36)
[2022-08-03] MEDS: traZODone 50 MG TAB PO PRN (23:00)
[2022-08-04] MEDS: CEPACOL LOZENGE PO PRN ×4 (00:05→21:32)
[2022-08-04 06:18] VITALS: BP 135/87
[2022-08-04] MEDS: POLYVINYL ALCOHOL OPHTH SOLN 15ML (LIQUITEARS) OU SCH ×4 (08:56→20:51)
[2022-08-04] MEDS: GABAPENTIN 300 MG CAP PO SCH ×3 (08:57→20:45)
[2022-08-04] MEDS: SODIUM CHLORIDE NASAL 0.65% SPRAY BTL (OCEAN) SCH ×4 (08:57→20:51)
[2022-08-04] MEDS: PANTOPRAZOLE 40MG TAB (PROTONIX) PO SCH (08:57)
[2022-08-04] MEDS: ASPIRIN 81MG ENTERIC TABLET PO SCH (08:57)
[2022-08-04] MEDS: DIVALPROEX 500MG *ER* TAB PO SCH ×2 (08:58→20:45)
[2022-08-04] MEDS: BENZTROPINE 1 MG TAB PO SCH ×2 (08:58→20:45)
[2022-08-04] MEDS: ASCORBIC ACID 500 MG TAB PO SCH (08:58)
[2022-08-04] MEDS: FUROSEMIDE 20 MG TAB PO SCH (08:58)
[2022-08-04] MEDS: PROPRANOLOL 10 MG TAB PO SCH ×2 (08:58→20:46)
[2022-08-04] MEDS: fluPHENAZine 5MG TABLET PO SCH ×2 (08:59→20:45)
[2022-08-04] MEDS: NICOTINE POLACRILEX 2 MG GUM PO PRN ×2 (10:59→18:36)
[2022-08-04] MEDS: LORazepam 1 MG TAB PO PRN (14:56)
[2022-08-04] MEDS: diphenhydrAMINE 50MG CAP PO PRN (14:56)
[2022-08-04] MEDS: IBUPROFEN 400MG TAB PO PRN (15:12)
[2022-08-04 16:29] VITALS: BP 150/92
[2022-08-04] MEDS: TAMSULOSIN 0.4 MG CAP PO SCH (20:45)
[2022-08-04] MEDS: traZODone 50 MG TAB PO PRN (22:54)
[2022-08-05] MEDS: NICOTINE POLACRILEX 2 MG GUM PO PRN ×3 (04:52→21:31)
[2022-08-05 06:39] VITALS: BP 136/80
[2022-08-05] MEDS: IBUPROFEN 400MG TAB PO PRN ×2 (07:04→22:14)
[2022-08-05] MEDS: SODIUM CHLORIDE NASAL 0.65% SPRAY BTL (OCEAN) SCH ×3 (09:00→21:00)
[2022-08-05] MEDS: POLYVINYL ALCOHOL OPHTH SOLN 15ML (LIQUITEARS) OU SCH ×3 (09:00→21:00)
[2022-08-05] MEDS: ASPIRIN 81MG ENTERIC TABLET PO SCH (09:26)
[2022-08-05] MEDS: ASCORBIC ACID 500 MG TAB PO SCH (09:27)
[2022-08-05] MEDS: PROPRANOLOL 10 MG TAB PO SCH ×2 (09:28→21:17)
[2022-08-05] MEDS: GABAPENTIN 300 MG CAP PO SCH ×3 (09:29→21:17)
[2022-08-05] MEDS: BENZTROPINE 1 MG TAB PO SCH ×2 (09:29→21:17)
[2022-08-05] MEDS: PANTOPRAZOLE 40MG TAB (PROTONIX) PO SCH (09:30)
[2022-08-05] MEDS: FUROSEMIDE 20 MG TAB PO SCH (09:30)
[2022-08-05] MEDS: fluPHENAZine 5MG TABLET PO SCH ×2 (09:31→21:16)
[2022-08-05] MEDS: DIVALPROEX 500MG *ER* TAB PO SCH ×2 (09:32→21:17)
[2022-08-05] MEDS: diphenhydrAMINE 50MG CAP PO PRN (14:18)
[2022-08-05] MEDS: LORazepam 1 MG TAB PO PRN (14:18)
[2022-08-05 17:47] VITALS: BP 138/80
[2022-08-05] MEDS: TAMSULOSIN 0.4 MG CAP PO SCH (21:16)
[2022-08-06] MEDS: traZODone 50 MG TAB PO PRN (00:05)
[2022-08-06] MEDS: diphenhydrAMINE 50MG CAP PO PRN (00:05)
[2022-08-06] MEDS: LORazepam 1 MG TAB PO PRN (00:05)
[2022-08-06] MEDS: NICOTINE POLACRILEX 2 MG GUM PO PRN ×3 (04:26→21:40)
[2022-08-06] MEDS: IBUPROFEN 400MG TAB PO PRN ×2 (04:50→23:35)
[2022-08-06 06:20] VITALS: BP 167/88
[2022-08-06] MEDS: SODIUM CHLORIDE NASAL 0.65% SPRAY BTL (OCEAN) SCH ×3 (09:00→21:23)
[2022-08-06] MEDS: POLYVINYL ALCOHOL OPHTH SOLN 15ML (LIQUITEARS) OU SCH ×3 (09:00→21:24)
[2022-08-06] MEDS: fluPHENAZine 5MG TABLET PO SCH ×2 (09:09→21:24)
[2022-08-06] MEDS: GABAPENTIN 300 MG CAP PO SCH ×3 (09:10→21:24)
[2022-08-06] MEDS: ASCORBIC ACID 500 MG TAB PO SCH (09:10)
[2022-08-06] MEDS: ASPIRIN 81MG ENTERIC TABLET PO SCH (09:10)
[2022-08-06] MEDS: PANTOPRAZOLE 40MG TAB (PROTONIX) PO SCH (09:10)
[2022-08-06] MEDS: FUROSEMIDE 20 MG TAB PO SCH (09:11)
[2022-08-06] MEDS: PROPRANOLOL 10 MG TAB PO SCH ×2 (09:11→21:24)
[2022-08-06] MEDS: BENZTROPINE 1 MG TAB PO SCH ×2 (09:12→21:24)
[2022-08-06] MEDS: DIVALPROEX 500MG *ER* TAB PO SCH ×2 (09:13→21:24)
[2022-08-06] MEDS: CEPACOL LOZENGE PO PRN ×3 (10:25→15:33)
[2022-08-06 18:04] VITALS: BP 140/68
[2022-08-06] MEDS: TAMSULOSIN 0.4 MG CAP PO SCH (21:24)
[2022-08-07] MEDS: CEPACOL LOZENGE PO PRN ×4 (01:32→21:34)
[2022-08-07] MEDS: NICOTINE POLACRILEX 2 MG GUM PO PRN ×3 (02:28→21:35)
[2022-08-07] MEDS ORDERED: NORCO, ANEXSIA 5/325MG TABLET (HYDROcodone/ACETAMINOPHEN) PO ONE (06:00)
[2022-08-07 06:25] VITALS: BP 153/86
[2022-08-07] MEDS: SODIUM CHLORIDE NASAL 0.65% SPRAY BTL (OCEAN) SCH ×3 (09:00→21:30)
[2022-08-07] MEDS: POLYVINYL ALCOHOL OPHTH SOLN 15ML (LIQUITEARS) OU SCH ×3 (09:00→21:30)
[2022-08-07] MEDS: ASCORBIC ACID 500 MG TAB PO SCH (09:41)
[2022-08-07] MEDS: DIVALPROEX 500MG *ER* TAB PO SCH ×2 (09:47→21:30)
[2022-08-07] MEDS: ASPIRIN 81MG ENTERIC TABLET PO SCH (09:47)
[2022-08-07] MEDS: GABAPENTIN 300 MG CAP PO SCH ×3 (09:48→21:30)
[2022-08-07] MEDS: PROPRANOLOL 10 MG TAB PO SCH ×2 (09:49→21:30)
[2022-08-07] MEDS: PANTOPRAZOLE 40MG TAB (PROTONIX) PO SCH (09:49)
[2022-08-07] MEDS: fluPHENAZine 5MG TABLET PO SCH ×2 (09:49→21:30)
[2022-08-07] MEDS: FUROSEMIDE 20 MG TAB PO SCH (09:50)
[2022-08-07] MEDS: BENZTROPINE 1 MG TAB PO SCH ×2 (09:50→21:30)
[2022-08-07] MEDS: diphenhydrAMINE 50MG CAP PO PRN (15:18)
[2022-08-07] MEDS: LORazepam 1 MG TAB PO PRN (15:19)
[2022-08-07 17:55] VITALS: BP 136/91
[2022-08-07] MEDS: TAMSULOSIN 0.4 MG CAP PO SCH (21:30)
[2022-08-07] MEDS: traZODone 50 MG TAB PO PRN (23:12)
[2022-08-08] MEDS: ASPIRIN 81MG ENTERIC TABLET PO SCH (10:02)
[2022-08-08] MEDS: fluPHENAZine 5MG TABLET PO SCH ×2 (10:02→20:55)
[2022-08-08] MEDS: BENZTROPINE 1 MG TAB PO SCH ×2 (10:03→20:56)
[2022-08-08] MEDS: DIVALPROEX 500MG *ER* TAB PO SCH ×2 (10:03→20:56)
[2022-08-08] MEDS: GABAPENTIN 300 MG CAP PO SCH ×3 (10:03→20:56)
[2022-08-08] MEDS: PANTOPRAZOLE 40MG TAB (PROTONIX) PO SCH (10:03)
[2022-08-08] MEDS: FUROSEMIDE 20 MG TAB PO SCH (10:03)
[2022-08-08] MEDS: ASCORBIC ACID 500 MG TAB PO SCH (10:04)
[2022-08-08] MEDS: PROPRANOLOL 10 MG TAB PO SCH ×2 (10:04→20:56)
[2022-08-08] MEDS: POLYVINYL ALCOHOL OPHTH SOLN 15ML (LIQUITEARS) OU SCH ×3 (10:08→21:00)
[2022-08-08] MEDS: SODIUM CHLORIDE NASAL 0.65% SPRAY BTL (OCEAN) SCH ×3 (10:08→21:00)
[2022-08-08] MEDS: diphenhydrAMINE 50MG CAP PO PRN ×2 (15:59→23:59)
[2022-08-08] MEDS: LORazepam 1 MG TAB PO PRN ×2 (16:00→23:59)
[2022-08-08 18:10] VITALS: BP 134/88
[2022-08-08] MEDS: CEPACOL LOZENGE PO PRN (18:43)
[2022-08-08] MEDS: NICOTINE POLACRILEX 2 MG GUM PO PRN ×2 (18:43→23:05)
[2022-08-08] MEDS: TAMSULOSIN 0.4 MG CAP PO SCH (20:56)
[2022-08-08] MEDS: IBUPROFEN 400MG TAB PO PRN (23:06)
[2022-08-09] MEDS: ASCORBIC ACID 500 MG TAB PO SCH (09:00)
[2022-08-09] MEDS: SODIUM CHLORIDE NASAL 0.65% SPRAY BTL (OCEAN) SCH ×3 (09:00→21:00)
[2022-08-09] MEDS: BENZTROPINE 1 MG TAB PO SCH ×2 (09:00→22:03)
[2022-08-09] MEDS: ASPIRIN 81MG ENTERIC TABLET PO SCH (09:00)
[2022-08-09] MEDS: GABAPENTIN 300 MG CAP PO SCH ×3 (09:00→22:07)
[2022-08-09] MEDS: PANTOPRAZOLE 40MG TAB (PROTONIX) PO SCH (09:00)
[2022-08-09] MEDS: FUROSEMIDE 20 MG TAB PO SCH (09:00)
[2022-08-09] MEDS: fluPHENAZine 5MG TABLET PO SCH ×2 (09:00→22:05)
[2022-08-09] MEDS: POLYVINYL ALCOHOL OPHTH SOLN 15ML (LIQUITEARS) OU SCH ×3 (09:00→21:00)
[2022-08-09] MEDS: DIVALPROEX 500MG *ER* TAB PO SCH ×2 (09:00→22:06)
[2022-08-09] MEDS: PROPRANOLOL 10 MG TAB PO SCH ×2 (09:00→22:14)
[2022-08-09 10:39] VITALS: BP 130/82
[2022-08-09] MEDS: diphenhydrAMINE 50MG CAP PO PRN (14:27)
[2022-08-09] MEDS: LORazepam 1 MG TAB PO PRN (14:27)
[2022-08-09] MEDS: IBUPROFEN 400MG TAB PO PRN (14:30)
[2022-08-09 18:47] VITALS: BP 140/80
[2022-08-09] MEDS: TAMSULOSIN 0.4 MG CAP PO SCH (22:04)
[2022-08-10 06:48] VITALS: BP 138/88
[2022-08-10] MEDS: NICOTINE POLACRILEX 2 MG GUM PO PRN ×4 (07:36→20:14)
[2022-08-10] MEDS: CEPACOL LOZENGE PO PRN ×4 (08:09→20:14)
[2022-08-10] MEDS: GABAPENTIN 300 MG CAP PO SCH ×3 (08:50→20:14)
[2022-08-10] MEDS: FUROSEMIDE 20 MG TAB PO SCH (08:51)
[2022-08-10] MEDS: DIVALPROEX 500MG *ER* TAB PO SCH ×2 (08:51→20:15)
[2022-08-10] MEDS: PANTOPRAZOLE 40MG TAB (PROTONIX) PO SCH (08:51)
[2022-08-10] MEDS: ASPIRIN 81MG ENTERIC TABLET PO SCH (08:52)
[2022-08-10] MEDS: PROPRANOLOL 10 MG TAB PO SCH ×2 (08:52→21:00)
[2022-08-10] MEDS: BENZTROPINE 1 MG TAB PO SCH ×2 (08:53→20:14)
[2022-08-10] MEDS: ASCORBIC ACID 500 MG TAB PO SCH (08:53)
[2022-08-10] MEDS: fluPHENAZine 5MG TABLET PO SCH ×2 (08:54→20:15)
[2022-08-10] MEDS: POLYVINYL ALCOHOL OPHTH SOLN 15ML (LIQUITEARS) OU SCH ×4 (08:59→20:22)
[2022-08-10] MEDS: SODIUM CHLORIDE NASAL 0.65% SPRAY BTL (OCEAN) SCH ×3 (08:59→20:21)
[2022-08-10] MEDS: diphenhydrAMINE 50MG CAP PO PRN ×2 (13:38→22:36)
[2022-08-10] MEDS: IBUPROFEN 400MG TAB PO PRN (13:38)
[2022-08-10] MEDS: LORazepam 1 MG TAB PO PRN ×2 (13:38→22:35)
[2022-08-10 18:43] VITALS: BP 136/82
[2022-08-10] MEDS: TAMSULOSIN 0.4 MG CAP PO SCH (20:14)
[2022-08-10] MEDS: traZODone 50 MG TAB PO PRN (22:36)
[2022-08-10 22:40] VITALS: BP 162/90
[2022-08-11] MEDS: NICOTINE POLACRILEX 2 MG GUM PO PRN ×4 (05:46→22:13)
[2022-08-11] MEDS: CEPACOL LOZENGE PO PRN ×4 (05:46→20:33)
[2022-08-11 06:22] VITALS: BP 132/78
[2022-08-11] MEDS: POLYVINYL ALCOHOL OPHTH SOLN 15ML (LIQUITEARS) OU SCH ×3 (09:00→20:36)
[2022-08-11] MEDS: SODIUM CHLORIDE NASAL 0.65% SPRAY BTL (OCEAN) SCH ×3 (09:00→20:36)
[2022-08-11] MEDS: ASCORBIC ACID 500 MG TAB PO SCH (09:05)
[2022-08-11] MEDS: DIVALPROEX 500MG *ER* TAB PO SCH ×2 (09:06→20:33)
[2022-08-11] MEDS: BENZTROPINE 1 MG TAB PO SCH ×2 (09:06→20:34)
[2022-08-11] MEDS: GABAPENTIN 300 MG CAP PO SCH ×3 (09:07→20:34)
[2022-08-11] MEDS: PROPRANOLOL 10 MG TAB PO SCH ×2 (09:07→20:34)
[2022-08-11] MEDS: FUROSEMIDE 20 MG TAB PO SCH (09:07)
[2022-08-11] MEDS: PANTOPRAZOLE 40MG TAB (PROTONIX) PO SCH (09:07)
[2022-08-11] MEDS: ASPIRIN 81MG ENTERIC TABLET PO SCH (09:07)
[2022-08-11] MEDS: fluPHENAZine 5MG TABLET PO SCH ×2 (09:08→20:34)
[2022-08-11] MEDS: diphenhydrAMINE 50MG CAP PO PRN (15:27)
[2022-08-11] MEDS: LORazepam 1 MG TAB PO PRN (15:28)
[2022-08-11] MEDS: IBUPROFEN 400MG TAB PO PRN (15:32)
[2022-08-11 18:54] VITALS: BP 140/84
[2022-08-11] MEDS: TAMSULOSIN 0.4 MG CAP PO SCH (20:34)
[2022-08-12] MEDS: CEPACOL LOZENGE PO PRN (01:40)
[2022-08-12] MEDS: traZODone 50 MG TAB PO PRN ×2 (01:40→23:22)
[2022-08-12] MEDS: NICOTINE POLACRILEX 2 MG GUM PO PRN ×3 (05:36→18:31)
[2022-08-12 06:32] VITALS: BP 138/78
[2022-08-12] MEDS: POLYVINYL ALCOHOL OPHTH SOLN 15ML (LIQUITEARS) OU SCH ×3 (08:28→18:57)
[2022-08-12] MEDS: SODIUM CHLORIDE NASAL 0.65% SPRAY BTL (OCEAN) SCH ×3 (08:28→18:57)
[2022-08-12] MEDS: PANTOPRAZOLE 40MG TAB (PROTONIX) PO SCH (08:31)
[2022-08-12] MEDS: PROPRANOLOL 10 MG TAB PO SCH ×2 (08:32→20:17)
[2022-08-12] MEDS: GABAPENTIN 300 MG CAP PO SCH ×3 (08:32→20:14)
[2022-08-12] MEDS: ASCORBIC ACID 500 MG TAB PO SCH (08:32)
[2022-08-12] MEDS: DIVALPROEX 500MG *ER* TAB PO SCH ×2 (08:32→20:14)
[2022-08-12] MEDS: fluPHENAZine 5MG TABLET PO SCH ×2 (08:32→20:14)
[2022-08-12] MEDS: BENZTROPINE 1 MG TAB PO SCH ×2 (08:32→20:14)
[2022-08-12] MEDS: FUROSEMIDE 20 MG TAB PO SCH (08:32)
[2022-08-12] MEDS: ASPIRIN 81MG ENTERIC TABLET PO SCH (08:32)
[2022-08-12] MEDS: fluPHENAZine DECAN 25MG/ML 5ML VIAL IM SCH (10:23)
[2022-08-12 16:51] VITALS: BP 129/69
[2022-08-12] MEDS: TAMSULOSIN 0.4 MG CAP PO SCH (20:14)
[2022-08-12] MEDS: diphenhydrAMINE 50MG CAP PO PRN (23:19)
[2022-08-12] MEDS: IBUPROFEN 400MG TAB PO PRN (23:20)
[2022-08-12] MEDS: LORazepam 1 MG TAB PO PRN (23:20)
[2022-08-13 06:44] VITALS: BP 125/72
[2022-08-13] MEDS: NICOTINE POLACRILEX 2 MG GUM PO PRN ×2 (08:39→15:03)
[2022-08-13] MEDS: GABAPENTIN 300 MG CAP PO SCH ×3 (08:39→21:29)
[2022-08-13] MEDS: fluPHENAZine 5MG TABLET PO SCH ×2 (08:40→21:29)
[2022-08-13] MEDS: DIVALPROEX 500MG *ER* TAB PO SCH ×2 (08:40→21:29)
[2022-08-13] MEDS: FUROSEMIDE 20 MG TAB PO SCH (08:40)
[2022-08-13] MEDS: PROPRANOLOL 10 MG TAB PO SCH ×2 (08:42→21:40)
[2022-08-13] MEDS: ASPIRIN 81MG ENTERIC TABLET PO SCH (08:42)
[2022-08-13] MEDS: POLYVINYL ALCOHOL OPHTH SOLN 15ML (LIQUITEARS) OU SCH ×3 (08:42→21:00)
[2022-08-13] MEDS: ASCORBIC ACID 500 MG TAB PO SCH (08:42)
[2022-08-13] MEDS: SODIUM CHLORIDE NASAL 0.65% SPRAY BTL (OCEAN) SCH ×3 (08:42→21:00)
[2022-08-13] MEDS: PANTOPRAZOLE 40MG TAB (PROTONIX) PO SCH (08:42)
[2022-08-13] MEDS: BENZTROPINE 1 MG TAB PO SCH ×2 (08:42→21:29)
[2022-08-13] MEDS: MOM 30ML SUSPENSION UDC PO PRN (12:51)
[2022-08-13] MEDS: TAMSULOSIN 0.4 MG CAP PO SCH (21:29)
[2022-08-14] MEDS: diphenhydrAMINE 50MG CAP PO PRN
[2022-08-14] MEDS: LORazepam 1 MG TAB PO PRN
[2022-08-14] MEDS: traZODone 50 MG TAB PO PRN (01:43)
[2022-08-14 06:34] VITALS: BP 138/82
[2022-08-14] MEDS: NICOTINE POLACRILEX 2 MG GUM PO PRN ×4 (06:39→20:27)
[2022-08-14] MEDS: fluPHENAZine 5MG TABLET PO SCH ×2 (08:46→20:24)
[2022-08-14] MEDS: GABAPENTIN 300 MG CAP PO SCH ×3 (08:46→20:24)
[2022-08-14] MEDS: PANTOPRAZOLE 40MG TAB (PROTONIX) PO SCH (08:46)
[2022-08-14] MEDS: BENZTROPINE 1 MG TAB PO SCH ×2 (08:47→20:25)
[2022-08-14] MEDS: PROPRANOLOL 10 MG TAB PO SCH ×2 (08:47→20:25)
[2022-08-14] MEDS: DIVALPROEX 500MG *ER* TAB PO SCH ×2 (08:47→20:24)
[2022-08-14] MEDS: FUROSEMIDE 20 MG TAB PO SCH (08:47)
[2022-08-14] MEDS: ASCORBIC ACID 500 MG TAB PO SCH (08:47)
[2022-08-14] MEDS: ASPIRIN 81MG ENTERIC TABLET PO SCH (08:47)
[2022-08-14] MEDS: SODIUM CHLORIDE NASAL 0.65% SPRAY BTL (OCEAN) SCH ×3 (08:48→21:00)
[2022-08-14] MEDS: POLYVINYL ALCOHOL OPHTH SOLN 15ML (LIQUITEARS) OU SCH ×3 (08:48→21:00)
[2022-08-14 16:33] VITALS: BP 148/88
[2022-08-14] MEDS: TAMSULOSIN 0.4 MG CAP PO SCH (20:24)
[2022-08-15] MEDS: NICOTINE POLACRILEX 2 MG GUM PO PRN ×3 (07:09→21:14)
[2022-08-15] MEDS: PANTOPRAZOLE 40MG TAB (PROTONIX) PO SCH (08:56)
[2022-08-15] MEDS: ASCORBIC ACID 500 MG TAB PO SCH (08:56)
[2022-08-15] MEDS: fluPHENAZine 5MG TABLET PO SCH ×2 (08:57→20:26)
[2022-08-15] MEDS: GABAPENTIN 300 MG CAP PO SCH ×3 (08:58→20:26)
[2022-08-15] MEDS: FUROSEMIDE 20 MG TAB PO SCH (08:58)
[2022-08-15] MEDS: PROPRANOLOL 10 MG TAB PO SCH ×2 (09:00→20:27)
[2022-08-15] MEDS: POLYVINYL ALCOHOL OPHTH SOLN 15ML (LIQUITEARS) OU SCH ×3 (09:00→20:29)
[2022-08-15] MEDS: SODIUM CHLORIDE NASAL 0.65% SPRAY BTL (OCEAN) SCH ×3 (09:00→20:28)
[2022-08-15] MEDS: ASPIRIN 81MG ENTERIC TABLET PO SCH (09:00)
[2022-08-15] MEDS: BENZTROPINE 1 MG TAB PO SCH ×2 (09:01→20:26)
[2022-08-15] MEDS: DIVALPROEX 500MG *ER* TAB PO SCH ×2 (09:03→20:26)
[2022-08-15] MEDS: IBUPROFEN 400MG TAB PO PRN (14:44)
[2022-08-15] MEDS: MOM 30ML SUSPENSION UDC PO PRN (16:56)
[2022-08-15 18:51] VITALS: BP 140/78
[2022-08-15] MEDS: TAMSULOSIN 0.4 MG CAP PO SCH (20:26)
[2022-08-16 06:23] VITALS: BP 130/78
[2022-08-16] MEDS: NICOTINE POLACRILEX 2 MG GUM PO PRN ×2 (06:28→15:28)
[2022-08-16] MEDS: POLYVINYL ALCOHOL OPHTH SOLN 15ML (LIQUITEARS) OU SCH ×3 (09:00→21:00)
[2022-08-16] MEDS: SODIUM CHLORIDE NASAL 0.65% SPRAY BTL (OCEAN) SCH ×3 (09:00→21:00)
[2022-08-16] MEDS: fluPHENAZine 5MG TABLET PO SCH ×2 (09:09→21:18)
[2022-08-16] MEDS: PROPRANOLOL 10 MG TAB PO SCH ×2 (09:09→21:17)
[2022-08-16] MEDS: ASPIRIN 81MG ENTERIC TABLET PO SCH (09:09)
[2022-08-16] MEDS: GABAPENTIN 300 MG CAP PO SCH ×3 (09:10→21:17)
[2022-08-16] MEDS: DIVALPROEX 500MG *ER* TAB PO SCH ×2 (09:10→21:17)
[2022-08-16] MEDS: BENZTROPINE 1 MG TAB PO SCH ×2 (09:10→21:17)
[2022-08-16] MEDS: ASCORBIC ACID 500 MG TAB PO SCH (09:10)
[2022-08-16] MEDS: FUROSEMIDE 20 MG TAB PO SCH (09:10)
[2022-08-16] MEDS: PANTOPRAZOLE 40MG TAB (PROTONIX) PO SCH (09:10)
[2022-08-16 16:23] VITALS: BP 138/82
[2022-08-16] MEDS: TAMSULOSIN 0.4 MG CAP PO SCH (21:17)
[2022-08-17] MEDS: SODIUM CHLORIDE NASAL 0.65% SPRAY BTL (OCEAN) SCH ×3 (09:00→21:00)
[2022-08-17] MEDS: POLYVINYL ALCOHOL OPHTH SOLN 15ML (LIQUITEARS) OU SCH ×3 (09:00→21:00)
[2022-08-17 09:16] VITALS: BP 140/90
[2022-08-17] MEDS: ASPIRIN 81MG ENTERIC TABLET PO SCH (09:18)
[2022-08-17] MEDS: BENZTROPINE 1 MG TAB PO SCH ×2 (09:18→20:58)
[2022-08-17] MEDS: ASCORBIC ACID 500 MG TAB PO SCH (09:19)
[2022-08-17] MEDS: FUROSEMIDE 20 MG TAB PO SCH (09:19)
[2022-08-17] MEDS: GABAPENTIN 300 MG CAP PO SCH ×3 (09:19→20:58)
[2022-08-17] MEDS: PROPRANOLOL 10 MG TAB PO SCH ×2 (09:19→20:58)
[2022-08-17] MEDS: fluPHENAZine 5MG TABLET PO SCH ×2 (09:19→20:58)
[2022-08-17] MEDS: PANTOPRAZOLE 40MG TAB (PROTONIX) PO SCH (09:19)
[2022-08-17] MEDS: DIVALPROEX 500MG *ER* TAB PO SCH ×2 (09:19→20:58)
[2022-08-17 16:23] VITALS: BP 138/88
[2022-08-17] MEDS: TAMSULOSIN 0.4 MG CAP PO SCH (20:58)
[2022-08-18 06:45] VITALS: BP 121/59
[2022-08-18] MEDS: SODIUM CHLORIDE NASAL 0.65% SPRAY BTL (OCEAN) SCH ×3 (09:00→20:18)
[2022-08-18] MEDS: POLYVINYL ALCOHOL OPHTH SOLN 15ML (LIQUITEARS) OU SCH ×3 (09:00→20:19)
[2022-08-18] MEDS: DIVALPROEX 500MG *ER* TAB PO SCH ×2 (09:12→20:17)
[2022-08-18] MEDS: PANTOPRAZOLE 40MG TAB (PROTONIX) PO SCH (09:13)
[2022-08-18] MEDS: FUROSEMIDE 20 MG TAB PO SCH (09:13)
[2022-08-18] MEDS: ASCORBIC ACID 500 MG TAB PO SCH (09:13)
[2022-08-18] MEDS: fluPHENAZine 5MG TABLET PO SCH ×2 (09:13→20:18)
[2022-08-18] MEDS: GABAPENTIN 300 MG CAP PO SCH ×3 (09:13→20:17)
[2022-08-18] MEDS: BENZTROPINE 1 MG TAB PO SCH ×2 (09:13→20:17)
[2022-08-18] MEDS: ASPIRIN 81MG ENTERIC TABLET PO SCH (09:13)
[2022-08-18] MEDS: PROPRANOLOL 10 MG TAB PO SCH ×2 (09:22→20:17)
[2022-08-18 16:11] VITALS: BP 138/94
[2022-08-18] MEDS: NICOTINE POLACRILEX 2 MG GUM PO PRN (19:26)
[2022-08-18] MEDS: TAMSULOSIN 0.4 MG CAP PO SCH (20:17)
[2022-08-19 07:06] VITALS: BP 136/90
[2022-08-19] MEDS: ASCORBIC ACID 500 MG TAB PO SCH (07:51)
[2022-08-19] MEDS: DIVALPROEX 500MG *ER* TAB PO SCH ×2 (07:51→20:12)
[2022-08-19] MEDS: PANTOPRAZOLE 40MG TAB (PROTONIX) PO SCH (07:52)
[2022-08-19] MEDS: FUROSEMIDE 20 MG TAB PO SCH (07:52)
[2022-08-19] MEDS: fluPHENAZine 5MG TABLET PO SCH ×2 (07:53→20:12)
[2022-08-19] MEDS: ASPIRIN 81MG ENTERIC TABLET PO SCH (07:53)
[2022-08-19] MEDS: BENZTROPINE 1 MG TAB PO SCH ×2 (07:54→20:12)
[2022-08-19] MEDS: PROPRANOLOL 10 MG TAB PO SCH ×2 (07:55→20:13)
[2022-08-19] MEDS: GABAPENTIN 300 MG CAP PO SCH ×3 (07:55→20:12)
[2022-08-19] MEDS: POLYVINYL ALCOHOL OPHTH SOLN 15ML (LIQUITEARS) OU SCH (07:59)
[2022-08-19] MEDS: SODIUM CHLORIDE NASAL 0.65% SPRAY BTL (OCEAN) SCH (07:59)
[2022-08-19] MEDS: NICOTINE POLACRILEX 2 MG GUM PO PRN ×2 (16:15→20:15)
[2022-08-19 18:35] VITALS: BP 138/84
[2022-08-19] MEDS: TAMSULOSIN 0.4 MG CAP PO SCH (20:12)
[2022-08-20 06:09] VITALS: BP 129/80
[2022-08-20] MEDS: NICOTINE POLACRILEX 2 MG GUM PO PRN ×3 (06:15→20:44)
[2022-08-20] MEDS: ASCORBIC ACID 500 MG TAB PO SCH (08:59)
[2022-08-20] MEDS: GABAPENTIN 300 MG CAP PO SCH ×3 (08:59→20:46)
[2022-08-20] MEDS: fluPHENAZine 5MG TABLET PO SCH ×2 (08:59→20:46)
[2022-08-20] MEDS: PANTOPRAZOLE 40MG TAB (PROTONIX) PO SCH (08:59)
[2022-08-20] MEDS: BENZTROPINE 1 MG TAB PO SCH ×2 (09:00→20:46)
[2022-08-20] MEDS: DIVALPROEX 500MG *ER* TAB PO SCH ×2 (09:00→20:46)
[2022-08-20] MEDS: FUROSEMIDE 20 MG TAB PO SCH (09:00)
[2022-08-20] MEDS: ASPIRIN 81MG ENTERIC TABLET PO SCH (09:00)
[2022-08-20] MEDS: PROPRANOLOL 10 MG TAB PO SCH ×2 (09:01→20:46)
[2022-08-20 18:28] VITALS: BP 143/86
[2022-08-20] MEDS: TAMSULOSIN 0.4 MG CAP PO SCH (20:45)
[2022-08-21] MEDS: NICOTINE POLACRILEX 2 MG GUM PO PRN ×4 (03:17→20:05)
[2022-08-21 06:27] VITALS: BP 139/75
[2022-08-21] MEDS: ASCORBIC ACID 500 MG TAB PO SCH (08:21)
[2022-08-21] MEDS: DIVALPROEX 500MG *ER* TAB PO SCH ×2 (08:22→20:04)
[2022-08-21] MEDS: fluPHENAZine 5MG TABLET PO SCH ×2 (08:22→20:04)
[2022-08-21] MEDS: BENZTROPINE 1 MG TAB PO SCH ×2 (08:22→20:04)
[2022-08-21] MEDS: ASPIRIN 81MG ENTERIC TABLET PO SCH (08:23)
[2022-08-21] MEDS: PROPRANOLOL 10 MG TAB PO SCH ×2 (08:23→20:05)
[2022-08-21] MEDS: FUROSEMIDE 20 MG TAB PO SCH (08:23)
[2022-08-21] MEDS: PANTOPRAZOLE 40MG TAB (PROTONIX) PO SCH (08:23)
[2022-08-21] MEDS: GABAPENTIN 300 MG CAP PO SCH ×3 (08:23→20:04)
[2022-08-21 17:30] VITALS: BP 142/94
[2022-08-21] MEDS: TAMSULOSIN 0.4 MG CAP PO SCH (20:05)
[2022-08-22] MEDS: NICOTINE POLACRILEX 2 MG GUM PO PRN ×4 (01:51→19:54)
[2022-08-22 06:36] VITALS: BP 124/62
[2022-08-22] MEDS: BENZTROPINE 1 MG TAB PO SCH ×2 (08:33→19:54)
[2022-08-22] MEDS: PANTOPRAZOLE 40MG TAB (PROTONIX) PO SCH (08:33)
[2022-08-22] MEDS: GABAPENTIN 300 MG CAP PO SCH ×3 (08:33→19:54)
[2022-08-22] MEDS: ASPIRIN 81MG ENTERIC TABLET PO SCH (08:33)
[2022-08-22] MEDS: FUROSEMIDE 20 MG TAB PO SCH (08:33)
[2022-08-22] MEDS: ASCORBIC ACID 500 MG TAB PO SCH (08:33)
[2022-08-22] MEDS: fluPHENAZine 5MG TABLET PO SCH ×2 (08:34→19:54)
[2022-08-22] MEDS: DIVALPROEX 500MG *ER* TAB PO SCH ×2 (08:34→19:54)
[2022-08-22] MEDS: PROPRANOLOL 10 MG TAB PO SCH ×2 (08:35→19:56)
[2022-08-22] MEDS: SODIUM CHLORIDE NASAL 0.65% SPRAY BTL (OCEAN) PRN (08:39)
[2022-08-22] MEDS: MOM 30ML SUSPENSION UDC PO PRN (17:20)
[2022-08-22 18:16] VITALS: BP 163/92
[2022-08-22] MEDS: TAMSULOSIN 0.4 MG CAP PO SCH (19:54)
[2022-08-23 06:42] VITALS: BP 127/70
[2022-08-23] MEDS: ASPIRIN 81MG ENTERIC TABLET PO SCH (08:21)
[2022-08-23] MEDS: PANTOPRAZOLE 40MG TAB (PROTONIX) PO SCH (08:21)
[2022-08-23] MEDS: BENZTROPINE 1 MG TAB PO SCH ×2 (08:21→21:05)
[2022-08-23] MEDS: FUROSEMIDE 20 MG TAB PO SCH (08:21)
[2022-08-23] MEDS: ASCORBIC ACID 500 MG TAB PO SCH (08:21)
[2022-08-23] MEDS: fluPHENAZine 5MG TABLET PO SCH ×2 (08:22→21:06)
[2022-08-23] MEDS: GABAPENTIN 300 MG CAP PO SCH ×3 (08:22→21:05)
[2022-08-23] MEDS: DIVALPROEX 500MG *ER* TAB PO SCH ×2 (08:22→21:05)
[2022-08-23] MEDS: PROPRANOLOL 10 MG TAB PO SCH ×2 (08:22→21:05)
[2022-08-23] MEDS: NICOTINE POLACRILEX 2 MG GUM PO PRN ×2 (16:23→21:05)
[2022-08-23 17:58] VITALS: BP 145/94
[2022-08-23] MEDS: TAMSULOSIN 0.4 MG CAP PO SCH (21:05)
[2022-08-24] MEDS: NICOTINE POLACRILEX 2 MG GUM PO PRN ×3 (06:28→17:47)
[2022-08-24 06:51] VITALS: BP 121/74
[2022-08-24] MEDS: FUROSEMIDE 20 MG TAB PO SCH (07:56)
[2022-08-24] MEDS: ASPIRIN 81MG ENTERIC TABLET PO SCH (07:56)
[2022-08-24] MEDS: GABAPENTIN 300 MG CAP PO SCH ×3 (07:56→20:12)
[2022-08-24] MEDS: ASCORBIC ACID 500 MG TAB PO SCH (07:57)
[2022-08-24] MEDS: PANTOPRAZOLE 40MG TAB (PROTONIX) PO SCH (07:57)
[2022-08-24] MEDS: BENZTROPINE 1 MG TAB PO SCH ×2 (07:57→20:12)
[2022-08-24] MEDS: fluPHENAZine 5MG TABLET PO SCH ×2 (07:59→20:12)
[2022-08-24] MEDS: PROPRANOLOL 10 MG TAB PO SCH ×2 (07:59→20:13)
[2022-08-24] MEDS: DIVALPROEX 500MG *ER* TAB PO SCH ×2 (08:01→20:11)
[2022-08-24] MEDS: fluPHENAZine DECAN 25MG/ML 5ML VIAL IM SCH (11:18)
[2022-08-24 18:51] VITALS: BP 119/86
[2022-08-24] MEDS: TAMSULOSIN 0.4 MG CAP PO SCH (20:12)
[2022-08-25 05:41] VITALS: BP 110/69
[2022-08-25] MEDS: NICOTINE POLACRILEX 2 MG GUM PO PRN ×3 (06:00→20:22)
[2022-08-25] MEDS: fluPHENAZine 5MG TABLET PO SCH ×2 (08:11→20:19)
[2022-08-25] MEDS: POLYVINYL ALCOHOL OPHTH SOLN 15ML (LIQUITEARS) OU PRN ×2 (08:11→21:40)
[2022-08-25] MEDS: PANTOPRAZOLE 40MG TAB (PROTONIX) PO SCH (08:11)
[2022-08-25] MEDS: DIVALPROEX 500MG *ER* TAB PO SCH ×2 (08:11→20:20)
[2022-08-25] MEDS: PROPRANOLOL 10 MG TAB PO SCH ×2 (08:12→20:19)
[2022-08-25] MEDS: FUROSEMIDE 20 MG TAB PO SCH (08:12)
[2022-08-25] MEDS: GABAPENTIN 300 MG CAP PO SCH ×3 (08:12→20:19)
[2022-08-25] MEDS: ASPIRIN 81MG ENTERIC TABLET PO SCH (08:12)
[2022-08-25] MEDS: BENZTROPINE 1 MG TAB PO SCH ×2 (08:13→20:19)
[2022-08-25] MEDS: ASCORBIC ACID 500 MG TAB PO SCH (08:13)
[2022-08-25 16:19] VITALS: BP 142/91
[2022-08-25] MEDS: TAMSULOSIN 0.4 MG CAP PO SCH (20:19)
[2022-08-25] MEDS: SODIUM CHLORIDE NASAL 0.65% SPRAY BTL (OCEAN) PRN (21:39)
[2022-08-26 06:31] VITALS: BP 126/68
[2022-08-26] MEDS: NICOTINE POLACRILEX 2 MG GUM PO PRN ×4 (07:07→22:45)
[2022-08-26] MEDS: FUROSEMIDE 20 MG TAB PO SCH (08:15)
[2022-08-26] MEDS: DIVALPROEX 500MG *ER* TAB PO SCH ×2 (08:15→19:55)
[2022-08-26] MEDS: ASPIRIN 81MG ENTERIC TABLET PO SCH (08:15)
[2022-08-26] MEDS: ASCORBIC ACID 500 MG TAB PO SCH (08:15)
[2022-08-26] MEDS: PROPRANOLOL 10 MG TAB PO SCH ×2 (08:16→19:58)
[2022-08-26] MEDS: BENZTROPINE 1 MG TAB PO SCH ×2 (08:16→19:55)
[2022-08-26] MEDS: GABAPENTIN 300 MG CAP PO SCH ×3 (08:16→19:54)
[2022-08-26] MEDS: fluPHENAZine 5MG TABLET PO SCH ×2 (08:17→19:55)
[2022-08-26] MEDS: PANTOPRAZOLE 40MG TAB (PROTONIX) PO SCH (09:27)
[2022-08-26 16:28] VITALS: BP 142/80
[2022-08-26] MEDS: TAMSULOSIN 0.4 MG CAP PO SCH (19:54)
[2022-08-27] MEDS: NICOTINE POLACRILEX 2 MG GUM PO PRN ×3 (06:01→17:59)
[2022-08-27 06:53] VITALS: BP 139/92
[2022-08-27] MEDS: fluPHENAZine 5MG TABLET PO SCH ×2 (08:05→20:04)
[2022-08-27] MEDS: ASPIRIN 81MG ENTERIC TABLET PO SCH (08:05)
[2022-08-27] MEDS: PROPRANOLOL 10 MG TAB PO SCH ×2 (08:05→20:06)
[2022-08-27] MEDS: PANTOPRAZOLE 40MG TAB (PROTONIX) PO SCH (08:05)
[2022-08-27] MEDS: ASCORBIC ACID 500 MG TAB PO SCH (08:05)
[2022-08-27] MEDS: FUROSEMIDE 20 MG TAB PO SCH (08:06)
[2022-08-27] MEDS: BENZTROPINE 1 MG TAB PO SCH ×2 (08:06→20:05)
[2022-08-27] MEDS: DIVALPROEX 500MG *ER* TAB PO SCH ×2 (08:06→20:05)
[2022-08-27] MEDS: GABAPENTIN 300 MG CAP PO SCH ×3 (08:06→20:05)
[2022-08-27] MEDS ORDERED: NICO2GUM PO (11:32)
[2022-08-27] MEDS ORDERED: DEPA500T2 PO (11:32)
[2022-08-27] MEDS ORDERED: FLUP25VL IM (11:32)
[2022-08-27] MEDS ORDERED: PROP10TA56 PO (11:32)
[2022-08-27] MEDS ORDERED: ATIV1TAB7 PO (11:32)
[2022-08-27] MEDS ORDERED: FLUP5TAB13 PO (11:32)
[2022-08-27] MEDS ORDERED: BENZ1TAB5 PO (11:32)
[2022-08-27] MEDS ORDERED: TRAZ-252 PO (11:32)
[2022-08-27 16:22] VITALS: BP 130/80
[2022-08-27] MEDS: TAMSULOSIN 0.4 MG CAP PO SCH (20:05)
[2022-08-28 06:23] VITALS: BP 129/70
[2022-08-28] MEDS: NICOTINE POLACRILEX 2 MG GUM PO PRN ×2 (08:04→11:59)
[2022-08-28 08:05] VITALS: BP 129/70
[2022-08-28] MEDS: DIVALPROEX 500MG *ER* TAB PO SCH (08:05)
[2022-08-28] MEDS: FUROSEMIDE 20 MG TAB PO SCH (08:05)
[2022-08-28] MEDS: PANTOPRAZOLE 40MG TAB (PROTONIX) PO SCH (08:05)
[2022-08-28] MEDS: PROPRANOLOL 10 MG TAB PO SCH (08:05)
[2022-08-28] MEDS: ASPIRIN 81MG ENTERIC TABLET PO SCH (08:05)
[2022-08-28] MEDS: fluPHENAZine 5MG TABLET PO SCH (08:05)
[2022-08-28] MEDS: ASCORBIC ACID 500 MG TAB PO SCH (08:05)
[2022-08-28] MEDS: GABAPENTIN 300 MG CAP PO SCH (08:05)
[2022-08-28] MEDS: BENZTROPINE 1 MG TAB PO SCH (08:06)
== END 2022-08-28 13:10 | disposition home or self-care (01) | DRG 885 ==
LOC: M ED 11:35 → M ED INP 07-12 12:30 → M PSY 07-12 13:25
PROVIDERS: ADMIT Student in an Organized Health Care Education/Training Program; ATTEND Student in an Organized Health Care Education/Training Program
DX: F20.9 Schizophrenia, unspecified (principal); S92.514A Nondisplaced fracture of proximal phalanx of right lesser toe(s), initial encounter for closed fracture; X58.XXXA Exposure to other specified factors, initial encounter; Y92.9 Unspecified place or not applicable; I10 Essential (primary) hypertension; G25.0 Essential tremor; N40.0 Benign prostatic hyperplasia without lower urinary tract symptoms; K21.9 Gastro-esophageal reflux disease without esophagitis; Z79.82 Long term (current) use of aspirin; Z79.899 Other long term (current) drug therapy; Z88.8 Allergy status to other drugs, medicaments and biological substances; Z20.822 Contact with and (suspected) exposure to COVID-19